=== PATIENT | male | born 1995 | race African-American/Black ===

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

== ENCOUNTER 2017-04-14 11:53 | Inpatient (IN) | payer OTHER ==
[2017-04-14 13:13] LABS: Hematocrit 47 % (42-52); Hemoglobin 15.9 g/dl (14.0-18.0); Mean Corpuscular HGB Conc 34 g/dl (31-36); Mean Corpuscular Hemoglobin 26 pg (27-31); Mean Corpuscular Volume 78 fL (80-94); Mean Platelet Volume 9 um3 (7.4-10.4); Red Blood Count 6.05 10^6/ul (4.0-5.4); Red Cell Distribution Width 14 % (10.5-15); White Blood Count 6.4 10^3/ul (3.5-10.8)
[2017-04-14 13:29] LABS: ALT 14 U/L (7-52); AST 18 U/L (13-39); Albumin 5.3 g/dL (3.2-5.2); Alkaline Phosphatase 68 U/L (34-104); Anion Gap 7 mmol/L (2-11); Blood Urea Nitrogen 7 mg/dL (6-24); CO2 Carbon Dioxide 28 mmol/L (22-32); Calcium 10.4 mg/dL (8.6-10.3); Chloride 103 mmol/L (101-111); EGFR African American 143.5 (>60); EGFR Non-African American 111.6 (>60); Globulin 2.8 g/dL (2-4); Glucose 99 mg/dL (70-100); Sodium 138 mmol/L (133-145); Total Protein 8.1 g/dL (6.4-8.9)
[2017-04-14 13:41] LABS: Acetaminophen < 15 mcg/mL; Alcohol < 10 mg/dL (<10); Salicylate < 2.50 mg/dL (<30)
[2017-04-14 13:54] LABS: Urine Bilirubin Negative (Negative); Urine Glucose Negative (Negative); Urine Nitrite Negative (Negative)
[2017-04-14 13:56] LABS: TSH (Thyroid Stimulating Horm) 0.96 mcIU/mL (0.34-5.60)
[2017-04-14 14:11] LABS: Benzodiazepine Urine Screen None Detected (None Detect)
--- NOTE | 2017-04-14 16:31 | ED ---
Naty Goins Abhishek, scribed for Jessica Peres MD on 04/14/17 at 1352 . Substance Abuse/Use - HPI Summary HPI Summary: This patient is a 21 year old M presenting [place] [facility] accompanied by male with a chief complaint of neurological deficit. The pt states he has memories from childhood that are returning, as well as patient states he sees god and has intuitions. The patient rates the pain 0/10 in severity. Symptoms aggravated by nothing. Symptoms alleviated by nothing. Patient reports depressed state of mind. Patient denies SI/HI. Pt states he has not taken marijuana recently. PMHx includes denies DM, HTN, cardiac disease, thyroid disease and asthma. - History Of Current Complaint Chief Complaint: EDMentalHealth Stated Complaint: MHE Hx Obtained From: Patient, Other: - Male who is a family friend Timing Of Abuse: Intermittent Character: Depressed Aggravating Factor(s): Nothing Alleviating Factor(s): Nothing Associated Signs And Symptoms: Altered Mental Status - The pt states he has memories from childhood that are returning, as well as patient states he sees god and has intuitions. Possibly due to marijuana use. 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 Denies: Hx Diabetes, Hx Thyroid Disease Cardiovascular History: Denies: Hx Hypertension, Hx Pacemaker/ICD Respiratory History: Reports: Hx Asthma Denies: Hx Chronic Obstructive Pulmonary Disease (COPD) GI History: Denies: Hx Ulcer Sensory History: Denies: Hx Contacts or Glasses, Hx Hearing Aid Opthamlomology History: Denies: Hx Contacts or Glasses Neurological History: Reports: Hx Migraine - TAKES MEDS PRN Psychiatric History: Reports: Hx Substance Abuse - Marijuana usage Denies: Hx Panic Disorder - Surgical History Surgery Procedure, Year, and Place: NASAL PASSAGE - 2011 Infectious Disease History: No Infectious Disease History: Denies: Hx Hepatitis, Hx Human Immunodeficiency Virus (HIV), Traveled Outside the [place] in Last 30 Days - Family History Known Family History: Positive: Other - Negative thyroid disease Negative: Cardiac Disease, Hypertension, Diabetes - Social History Occupation: Student Lives: With Family Alcohol Use: None Substance Use Type: Reports: Marijuana Substance Use Comment - Amount & Last Used: Marijuana: not used recently Smoking Status (MU): Never Smoked Tobacco Review of Systems Constitutional: Negative Eyes: Negative ENT: Negative Cardiovascular: Negative Respiratory: Negative Gastrointestinal: Negative Genitourinary: Negative Musculoskeletal: Negative Skin: Negative Neurological: Other - pt states he has used marijauna but not recently. Positive: Depressed, Other - The pt states he has memories from childhood that are returning, as well as patient states he sees god and has intuitions. All Other Systems Reviewed And Are Negative: Yes Physical Exam - Summary Physical Exam Summary: General: Well appearing, no pain distress Skin: Warm, Skin Color Reflects Adequate Perfusion, Dry Eyes: EOMI, HAILEE ENT: Pharynx normal, TMs normal Neck: Supple, nontender Respiratory: CTA, breath sounds present, no rhonchi, no wheezes, no rales Cardiovascular: RRR, no murmur, no rub, no gallop Abdomen: Soft, nontender, Non-distended, no guarding, no rebound Bowel: Present Musculoskeletal: PUSHPA, No edema Neuro: Sensory/motor intact, A&Ox3, CN intact 2-12 Psych: Rhyming on exam, Responding to internal stimuli, Not responding with correct answer tangential Triage Information Reviewed: Yes Vital Signs On Initial Exam: Initial Vitals Temp Pulse Resp BP Pulse Ox 97.8 F 67 16 137/86 100 04/14/17 11:57 04/14/17 11:57 04/14/17 11:57 04/14/17 11:57 04/14/17 11:57 Vital Signs Reviewed: Yes Diagnostics - Vital Signs Vital Signs Temp Pulse Resp BP Pulse Ox 04/14/17 11:57 97.8 F 67 16 137/86 100 - Laboratory Lab Results: Lab Results 04/14/17 04/14/17 Range/Units 13:02 13:02 WBC 6.4 (3.5-10.8) 10^3/ul RBC 6.05 H (4.0-5.4) 10^6/ul Hgb 15.9 (14.0-18.0) g/dl Hct 47 (42-52) % MCV 78 L (80-94) fL MCH 26 L (27-31) pg MCHC 34 (31-36) g/dl RDW 14 (10.5-15) % Plt Count 289 (150-450) 10^3/ul MPV 9 (7.4-10.4) um3 Neut % (Auto) 46.0 (38-83) % Lymph % (Auto) 36.4 (25-47) % [place] % (Auto) 5.7 (1-9) % Eos % (Auto) 10.5 H (0-6) % Baso % (Auto) 1.4 (0-2) % Absolute Neuts (auto) 2.9 (1.5-7.7) 10^3/ul Absolute Lymphs (auto) 2.3 (1.0-4.8) 10^3/ul Absolute Monos (auto) 0.4 (0-0.8) 10^3/ul Absolute Eos (auto) 0.7 H (0-0.6) 10^3/ul Absolute Basos (auto) 0.1 (0-0.2) 10^3/ul Absolute Nucleated RBC 0.02 10^3/ul Nucleated RBC % 0.3 Sodium 138 (133-145) mmol/L Potassium 4.0 (3.5-5.0) mmol/L Chloride 103 (101-111) mmol/L Carbon Dioxide 28 (22-32) mmol/L Anion Gap 7 (2-11) mmol/L BUN 7 (6-24) mg/dL Creatinine 0.88 (0.67-1.17) mg/dL Est GFR ( Amer) 143.5 (>60) Est GFR (Non-Af Amer) 111.6 (>60) BUN/Creatinine Ratio 8.0 (8-20) Glucose 99 (70-100) mg/dL Calcium 10.4 H (8.6-10.3) mg/dL Total Bilirubin 0.60 (0.2-1.0) mg/dL AST 18 (13-39) U/L ALT 14 (7-52) U/L Alkaline Phosphatase 68 (34-104) U/L Total Protein 8.1 (6.4-8.9) g/dL Albumin 5.3 H (3.2-5.2) g/dL Globulin 2.8 (2-4) g/dL Albumin/Globulin Ratio 1.9 (1-3) TSH Pending Salicylates < 2.50 (<30) mg/dL Acetaminophen < 15 mcg/mL Serum Alcohol < 10 (<10) mg/dL Result Diagrams: 04/14/17 13:02 04/14/17 13:02 Lab Statement: Any lab studies that have been ordered have been reviewed, and results considered in the medical decision making process. Course/Dx - Course Course Of Treatment: 21 yo brought in by his adoptive parents with altered mental status. Pt was admitted with likely first psychotic break in stable condition - Diagnoses Provider Diagnoses: Psychosis Discharge - Discharge Plan Condition: Stable Disposition: ADMITTED TO [facility] The documentation as recorded by the Naty gomez Abhishek accurately reflects the service I personally performed and the decisions made by , Jessica Peres MD.
[2017-04-14] MEDS ORDERED: Haloperidol TAB* 5 MG PO PRN (17:18)
[2017-04-14] MEDS ORDERED: Acetaminophen TAB* 325 MG PO PRN (17:18)
[2017-04-14] MEDS ORDERED: LORazepam TAB(*) 1 MG PO PRN (17:18)
[2017-04-14] MEDS ORDERED: Al Hydrox/Mg Hydrox/Simet LIQ* 30 ML UDC PO PRN (17:18)
[2017-04-15] MEDS: Vitamin THERAPEUTIC TAB PO SCH (10:15)
--- NOTE | 2017-04-15 11:59 | HP ---
H&P (Free Text) History and Physical: HPI: ---- Patient is a 21yo male with PPHx significant for PTSD presents to the [facility] ED, BIB his adopted family, reporting patient displaying bizarre behaviors and expressing delusional thought of the past few weeks. In the ED, patient is noted to be agitated, guarded and paranoid. He is noted to be responding to internal stimuli and also displays echolalia while in the ED. Patient denied AH/VH and SI /HI. Patient reports this is his first psychiatric hospitalization. On interview, patient engages the interview, but continues to demonstrate a mostly disorganized TP. He is a poor historian, but has given this provider permission to get collateral information regarding this presentation from his adopted parents. Patient is able to report recently experiencing worsening intrusive memories of both his mother and brother who while patient was a child. He reports he is from [facility], and came [place] the [place] when he was 9yo, brought by his adopted family. Patient reports hx of trauma counseling due to his loses in childhood. He also reports significant bullying in middle school because he could not speak German well. Patient reports significant bullying in HS as well. Patient does reports recent use of mushrooms and LSD at a libertarian a few weeks ago. It is reported he has not returned to his baseline cognition since. Patient also reports daily use of Cannabis. Patient denies hx of suicide attempt. Patient continued to deny AH/VH and SI/HI. Past Psych Hx: Inpt - Patient reports this is his 1st psychiatric hospitalization. Outpt - Patient reports prior hx of outpt MH encounters, recently primarily counseling for PTSD. Psychotropic med hx - Patient is psychotropic med naive. Trauma Hx: Patient noted to have lost both his parents and his bio-sibling in childhood under the age of 7yo. Patient also reports significant bullying in middle school because he could not speak German well. Patient reports significant bullying in HS as well. Suicide attempt Hx / SIB Hx: Patient denies hx of suicide attempt. Substance Hx: Patient denies hx of alcohol abuse. Patient endorses use of marijuana regularly since 9th grade. Patient reports rare use of mushrooms/acid, last, a couple of months ago. Patient reports no use of other illicit substances. Medical Hx: Patient w/ Dx of having Sickle Cell Trait Allergies: --------- Shrimp / Shrimp Flavor NKDA Family Hx: Patient was adopted and has no knowledge of his maternal or paternal medical hx. Social Hx: --------- -Patient born in [facility]. -Patient was adopted at 7yo. -Patient's bio-dad before he was born. -Patient's bio-mom when he was 7yo. -Patient's bio-sibling, a brother also when patient was a child. -At age 9yo, patient moved with his adopted family to the . -Patient reports moving to [place] at 10yo. -Patient graduated HS in 11/2016. -Patient is accepted but has not started IC. -Patient denies access to firearms. Home Medications: Home Medications Medication Instructions Recorded Confirmed Type NK [No Home Medications Reported] 11/19/16 11/19/16 History VITALS: Vital Signs (72 hours) 04/14/17 04/14/17 04/14/17 11:57 17:09 17:21 Temperature 97.8 F 98.6 F Pulse Rate 67 95 Respiratory 16 18 18 Rate Blood Pressure 137/86 132/85 (mmHg) O2 Sat by Pulse 100 100 Oximetry 04/14/17 04/15/17 21:50 08:18 Temperature 98.9 F Pulse Rate 76 Respiratory 18 16 Rate Blood Pressure 94/68 (mmHg) O2 Sat by Pulse 100 Oximetry LABS: ------- Laboratory Tests 04/14/17 04/14/17 04/14/17 13:02 13:02 13:41 WBC 6.4 RBC 6.05 H Hgb 15.9 Hct 47 MCV 78 L MCH 26 L MCHC 34 RDW 14 Plt Count 289 MPV 9 Neut % (Auto) 46.0 Lymph % (Auto) 36.4 [place] % (Auto) 5.7 Eos % (Auto) 10.5 H Baso % (Auto) 1.4 Absolute Neuts (auto) 2.9 Absolute Lymphs (auto) 2.3 Absolute Monos (auto) 0.4 Absolute Eos (auto) 0.7 H Absolute Basos (auto) 0.1 Absolute Nucleated RBC 0.02 Nucleated RBC % 0.3 Sodium 138 Potassium 4.0 Chloride 103 Carbon Dioxide 28 Anion Gap 7 BUN 7 Creatinine 0.88 Est GFR ( Amer) 143.5 Est GFR (Non-Af Amer) 111.6 BUN/Creatinine Ratio 8.0 Glucose 99 Calcium 10.4 H Total Bilirubin 0.60 AST 18 ALT 14 Alkaline Phosphatase 68 Total Protein 8.1 Albumin 5.3 H Globulin 2.8 Albumin/Globulin Ratio 1.9 TSH 0.96 Urine Color Urine Appearance Urine pH Ur Specific [place] Urine Protein Urine Ketones Urine Blood Urine Nitrate Urine Bilirubin Urine Urobilinogen Ur Leukocyte Esterase Urine Glucose Salicylates < 2.50 Urine Opiates Screen None detected Acetaminophen < 15 Ur Barbiturates Screen None detected Ur Phencyclidine Scrn None detected Ur Amphetamines Screen None detected U Benzodiazepines Scrn None detected Urine Cocaine Screen None detected U Cannabinoids Screen Presumptive positive H Serum Alcohol < 10 04/14/17 13:41 WBC RBC Hgb Hct MCV MCH MCHC RDW Plt Count MPV Neut % (Auto) Lymph % (Auto) [place] % (Auto) Eos % (Auto) Baso % (Auto) Absolute Neuts (auto) Absolute Lymphs (auto) Absolute Monos (auto) Absolute Eos (auto) Absolute Basos (auto) Absolute Nucleated RBC Nucleated RBC % Sodium Potassium Chloride Carbon Dioxide Anion Gap BUN Creatinine Est GFR ( Amer) Est GFR (Non-Af Amer) BUN/Creatinine Ratio Glucose Calcium Total Bilirubin AST ALT Alkaline Phosphatase Total Protein Albumin Globulin Albumin/Globulin Ratio TSH Urine Color Straw Urine Appearance Clear Urine pH 8.0 Ur Specific [place] 1.009 L Urine Protein Negative Urine Ketones Negative Urine Blood Negative Urine Nitrate Negative Urine Bilirubin Negative Urine Urobilinogen Negative Ur Leukocyte Esterase Negative Urine Glucose Negative Salicylates Urine Opiates Screen Acetaminophen Ur Barbiturates Screen Ur Phencyclidine Scrn Ur Amphetamines Screen U Benzodiazepines Scrn Urine Cocaine Screen U Cannabinoids Screen Serum Alcohol PHYSICAL EXAM: GEN - in NAD, thin build, looks stated age HEENT - NC/AT, EOEMI, no lesions or discharge noted, conjunctivae clear NECK - supple, no JVD, no LAD, CARDIAC - S1/S2, no discernable murmurs ABD - (+) BS x 4 quad, non-tender EXT - no edema, no lesions MUSCULOSKEL - 5/5 muscle strength in all extremities SKIN - intact, no lesions NEURO - CN 2-12, steady gait MSE: ----- Appearance - thin build male, looks stated age fair hygeine, in NAD Behavior - bizarre but cooperative Speech - spontaneous, RVR, prosody wnl Eye Contact - intense Mood - "depressed" Affect - odd, dysphoric TP - disorganized mostly, linear at times TC - consumed with memories of his mom and brother who both passed in his childhood, religiously preoccupied, grandiose at times Perception - MARK, patient denies AH/VH Orientation - A&Ox2(person and place) Insight - poor Judgment - poor Impulse control - poor SI / HI - denies both ASSESSMENT: 1. 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 PTSD PLAN: ------ 1. Continue admission to [facility] for safety and symptom mx. 2. Will start Abilify 10mg po qhs for mood augmentation and psychosis. 3. First break psychosis work-up ordered: CT brain w/o contrast, VitB12, RPR, HIV, and ESR in addition to the admission labs drawn. 4. Obtain collateral from adopted mom(Yue-#[phone]) and adopted dad([phone]) and outpt providers. 5. Patient to participate in milieu activities and groups.
[2017-04-15 15:53] LABS: HDL Cholesterol 48.6 mg/dL
[2017-04-15] MEDS: Nicotine Inhaler* 10 MG AMP INH PRN ×2 (17:24→21:09)
[2017-04-15] MEDS ORDERED: Mouth Piece, Nicotine* 1 EACH CARTRIDGE INH ONE (18:00)
[2017-04-15] MEDS: ARIPiprazole TAB* 5 MG PO SCH (21:06)
--- NOTE | 2017-04-16 10:16 | PN ---
Subjective - Subjective Service Type: [id number] [facility] care 15 min low complexity Subjective: Patient is noted to be visible in the milieu, pleasant, and social. It is noted that patient is intrusive with staff and peers and has demonstrated poor boundaries. Patient observed to be sitting inappropriately close to a female peer and observed invading physical space of peers. On interview, patient has no insight into the inappropriateness of these behaviors. He continues to display an odd, distance affect and eye contact. Patient is mostly linear in TP, but continues to demonstrate disorganized TP at times. TC is bizarre and at times grandiose. Patient has been disruptive in the few groups he's attended. Patient reports no desire to take pills, but was encouraged to be compliant with a trial of an antipsychotic med to determine if they would be beneficial or not. Patient was amenable. Patient reports improved mood. He clarified that he has more biological siblings back in [facility]. He reports having 2 older brothers who are twins and a sister. He reports the brother that passed lived in [facility] and he passed last year, not in patient's childhood as his mom and dad did. Patient reports his brother who passed was adopted by another family that stayed in [facility]. He reports his adopted family moved to the [place] when he was 9yo. He reports no SI/HI or AH//VH. Sleep and appetite are wnl. Objective - Appearance Appearance: Well Developed/Nourished, Thin Framed Dysmorphic Features: No Hygiene: Normal Grooming: Fairly Well Kept - Behavior Psychomotor Activities: Normal Exhibits Abnormal Movement: No - Attitude and Relatedness Attitude and Relatedness: Psychotically Related Eye Contact: Fair - Speech Quality: Unpressured Latencies: Normal Quantity: Copious - Mood Patient's Decription of Mood: "Okay" - Affect Observed Affect: Expansive Affect Consistent with: Euthymia - Thought Process Patient's Thought Process: Coherent Thought Content: Yes Paranoid Ideation, No Passive Wish, No Suicidal Planning, No Homicidal Ideation - Sensorium Experiencing Hallucinations: No, Sensorium is Clear Type of Hallucinations: Visual: No, Auditory: No, Command: No - Level of Consciousness Level of Consciousness: Alert Orientation: Yes Orientated to Place, Yes Orientated to Person, No Intact, No Orientated to Time - Impulse Control Impulse Control: Poor - Insight and Judgement Insight and Judgement: Poor - Group Participation Particating in Group Activities: No - Medication Management Medication Management Adherence: Yes Assessment - Assessment Merits Inpatient Hospitalization: For Immediate Safety, For Stabilization Inpatient DSM-IV Dx: 1. 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 2. PTSD Plan - Plan Treatment Plan: Name: IDA RODRIGUEZ Birthdate: 1995 [id number] PLAN: ------ 1. Continue admission to [facility] for safety and symptom mx. 2. Continue Abilify 10mg po qhs for mood augmentation and psychosis. 3. First break psychosis work-up: CT brain w/o contrast, VitB12, RPR, HIV, and ESR in addition to the admission labs drawn - PENDING 4. Obtain collateral from adopted mom(Yue-#[phone]) and adopted [phone]) and outpt providers. 5. Patient to participate in milieu activities and groups. Continued Medication Management: Start Medication Medications: Current Medications Acetaminophen (Tylenol Tab*) 650 mg PO Q4H PRN PRN Reason: PAIN or TEMP > 101 F Al Hydrox/Mg Hydrox/Simethicone (Maalox Plus*) 30 ml PO Q4H PRN PRN Reason: INDIGESTION Aripiprazole (Abilify Tab*) 10 mg PO BEDTIME CEM Last Admin: 04/15/17 21:06 Dose: 10 mg Haloperidol (Haldol Tab*) 5 mg PO Q6H PRN PRN Reason: AGITATION Last Admin: 04/14/17 21:50 Dose: 5 mg Lorazepam (Ativan Tab(*)) 2 mg PO Q6H PRN PRN Reason: AGITATION Last Admin: 04/14/17 21:50 Dose: 2 mg Multivitamins (Theragran Tab*) 1 tab PO DAILY CEM Last Admin: 04/15/17 10:15 Dose: Not Given Nicotine (Nicotine Inhaler*) 10 mg INH Q2H PRN PRN Reason: CRAVING Last Admin: 04/15/17 21:09 Dose: 10 mg - Discharge Plan Discharge Plan: Outpatient Follow Up Outpatient Program: [facility]
[2017-04-16] MEDS: Vitamin THERAPEUTIC TAB PO SCH (11:51)
--- NOTE | 2017-04-16 13:12 | RAD ---
HISTORY: Psychosis COMPARISONS: MRI dated July 05, 2010 TECHNIQUE: Multiple contiguous axial CT scans were obtained of the head without intravenous contrast. FINDINGS: HEMORRHAGE/INFARCT: There is no hemorrhage or acute infarct. MASSES/SHIFT: There is no mass or shift. EXTRA-AXIAL SPACES: There are no extra-axial fluid collections. SULCI AND VENTRICLES: The sulci and ventricles are normal in size and position for the patient's stated age. CEREBRUM: There are no focal parenchymal abnormalities. BRAINSTEM: There are no focal parenchymal abnormalities. CEREBELLUM: There are no focal parenchymal abnormalities. VESSELS: The vessels are grossly normal. PARANASAL SINUSES: The paranasal sinuses are clear. ORBITS: The orbits are unremarkable. BONES AND SOFT TISSUE: No bone or soft tissue abnormalities are noted. OTHER: None IMPRESSION: NO ACUTE INTRACRANIAL PATHOLOGY.
[2017-04-16] MEDS: ARIPiprazole TAB* 5 MG PO SCH ×2 (21:24→21:29)
[2017-04-17 06:24] LABS: Vitamin B12 531 pg/mL (180-914)
[2017-04-17 10:30] LABS: Syphilis Index < 0.1 Index
[2017-04-17] MEDS: Vitamin THERAPEUTIC TAB PO SCH (10:42)
--- NOTE | 2017-04-17 11:31 | PN ---
Subjective - Subjective Service Type: [id number] Hosp care 15 min low complexity Subjective: Patient is noted to be visible in the milieu, pleasant, and social. Patient continues to demonstrate intrusive behaviors and inability to maintain appropriate boundaries, again observed invading physical space of peers. On interview, patient's affect is more full and engaged. His eye contact is not bizarre but is appropriate today. Patient is mostly linear in TP, but continues to demonstrate disorganized TP at times. TC is focused on discharge, but was amenable to continue admission for ongoing med adjustment and as it was explained to patient, engagement in groups will strengthen his ability to handle his endorsed recent mood deregulation. Patient has been attending groups today. He is med compliant and denies med s/e' s. He reports his adopted family is available to have a family meeting on Saturday. He reports fair sleep and appetite are wnl. Patient again denies SI/HI or AH//VH. Objective - Appearance Appearance: Well Developed/Nourished, Thin Framed Dysmorphic Features: No Hygiene: Normal Grooming: Fairly Well Kept - Behavior Psychomotor Activities: Normal Exhibits Abnormal Movement: No - Attitude and Relatedness Attitude and Relatedness: Cooperative Eye Contact: Good - Speech Quality: Unpressured Latencies: Normal Quantity: Copious - Mood Patient's Decription of Mood: "Fine" - Affect Observed Affect: Expansive Affect Consistent with: Euthymia - Thought Process Patient's Thought Process: Disorganized, Tangential Thought Content: Yes Paranoid Ideation, No Passive Wish, No Suicidal Planning, No Homicidal Ideation - Sensorium Experiencing Hallucinations: No, Sensorium is Clear Type of Hallucinations: Visual: No, Auditory: No, Command: No - Level of Consciousness Level of Consciousness: Alert Orientation: Yes Orientated to Place, Yes Orientated to Person, No Intact, No Orientated to Time - Impulse Control Impulse Control: Impaired - Insight and Judgement Insight and Judgement: Impaired - Group Participation Particating in Group Activities: No - Medication Management Medication Management Adherence: Yes Assessment - Assessment Merits Inpatient Hospitalization: For Immediate Safety, For Stabilization Inpatient DSM-IV Dx: 1. 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 2. PTSD Plan - Plan Treatment Plan: Name: IDA RODRIGUEZ Birthdate: 1995 [id number] PLAN: ------ 1. Continue admission [place] [facility] for safety and symptom mx. 2. Continue Abilify 10mg po qhs for mood augmentation and psychosis. 3. First break psychosis work-up: CT brain w/o contrast, VitB12, RPR and ESR in addition to the admission labs drawn - All are WNL HIV is still PENDING. 4. Obtain collateral from adopted mom(Yue-#[phone]) and adopted dad() and outpt providers. 5. Patient to participate in milieu activities and groups. Continued Medication Management: Start Medication Medications: Current Medications Acetaminophen (Tylenol Tab*) 650 mg PO Q4H PRN PRN Reason: PAIN or TEMP > 101 F Al Hydrox/Mg Hydrox/Simethicone (Maalox Plus*) 30 ml PO Q4H PRN PRN Reason: INDIGESTION Aripiprazole (Abilify Tab*) 10 mg PO BEDTIME CEM Last Admin: 04/16/17 21:29 Dose: 10 mg Haloperidol (Haldol Tab*) 5 mg PO Q6H PRN PRN Reason: AGITATION Last Admin: 04/14/17 21:50 Dose: 5 mg Lorazepam (Ativan Tab(*)) 2 mg PO Q6H PRN PRN Reason: AGITATION Last Admin: 04/14/17 21:50 Dose: 2 mg Multivitamins (Theragran Tab*) 1 tab PO DAILY CEM Last Admin: 04/17/17 10:42 Dose: Not Given Nicotine (Nicotine Inhaler*) 10 mg INH Q2H PRN PRN Reason: CRAVING Last Admin: 04/15/17 21:09 Dose: 10 mg - Discharge Plan Discharge Plan: Outpatient Follow Up Outpatient Program: [facility]
[2017-04-17] MEDS: ARIPiprazole TAB* 5 MG PO SCH (20:37)
[2017-04-18] MEDS: Vitamin THERAPEUTIC TAB PO SCH (08:12)
--- NOTE | 2017-04-18 09:56 | PN ---
Subjective - Subjective Service Type: [id number] Hosp care 15 min low complexity Subjective: Patient is visible in the milieu; noted to be social, pleasant, and participating in milieu activities and groups. Patient is noted to have good eye contact and is engaged more engaged in the conversation. Patient reports med compliance. He denies med s/e's. Patient continues to report noticeable improved clarity of thought. He demonstrated no disorganized thought on interview. Patient again today denies SI/HI and AH/VH. Objective - Appearance Appearance: Well Developed/Nourished, Thin Framed Dysmorphic Features: No Hygiene: Normal Grooming: Well Kept - Behavior Psychomotor Activities: Normal Exhibits Abnormal Movement: No - Attitude and Relatedness Attitude and Relatedness: Cooperative Eye Contact: Good - Speech Quality: Unpressured Latencies: Normal Quantity: Appropriate - Mood Patient's Decription of Mood: "Anxious" - Affect Observed Affect: Constricted Affect Consistent with: Dysphoria - Thought Process Patient's Thought Process: Coherent Thought Content: No Passive Wish, No Suicidal Planning, No Homicidal Ideation, No Paranoid Ideation - Sensorium Experiencing Hallucinations: No, Sensorium is Clear Type of Hallucinations: Visual: No, Auditory: No, Command: No - Level of Consciousness Level of Consciousness: Alert Orientation: Yes Intact, Yes Orientated to Time, Yes Orientated to Place, Yes Orientated to Person - Impulse Control Impulse Control: Intact - Insight and Judgement Insight and Judgement: Fair - Group Participation Particating in Group Activities: Yes - Medication Management Medication Management Adherence: Yes Assessment - Assessment Merits Inpatient Hospitalization: For Immediate Safety, For Stabilization Inpatient DSM-IV Dx: 1. 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 2. PTSD Plan - Plan Treatment Plan: Name: IDA RODRIGUEZ Birthdate: 1995 [id number] PLAN: ------ 1. Continue admission [place] [facility] for safety and symptom mx. 2. Continue Abilify 10mg po qhs for mood augmentation and psychosis. 3. First break psychosis work-up: CT brain w/o contrast, VitB12, RPR and ESR in addition to the admission labs drawn - All are WNL HIV is still PENDING. 4. Family meeting today with adopted parents. Will obtain collateral from adopted mom(Yue-#[phone]) and adopted dad([phone]). 5. Patient to participate in milieu activities and groups. Continued Medication Management: Different Medication Medications: Current Medications Acetaminophen (Tylenol Tab*) 650 mg PO Q4H PRN PRN Reason: PAIN or TEMP > 101 F Al Hydrox/Mg Hydrox/Simethicone (Maalox Plus*) 30 ml PO Q4H PRN PRN Reason: INDIGESTION Aripiprazole (Abilify Tab*) 10 mg PO BEDTIME CEM Last Admin: 04/17/17 20:37 Dose: 10 mg Haloperidol (Haldol Tab*) 5 mg PO Q6H PRN PRN Reason: AGITATION Last Admin: 04/14/17 21:50 Dose: 5 mg Lorazepam (Ativan Tab(*)) 2 mg PO Q6H PRN PRN Reason: AGITATION Last Admin: 04/14/17 21:50 Dose: 2 mg Multivitamins (Theragran Tab*) 1 tab PO DAILY CEM Last Admin: 04/18/17 08:12 Dose: Not Given Nicotine (Nicotine Inhaler*) 10 mg INH Q2H PRN PRN Reason: CRAVING Last Admin: 04/15/17 21:09 Dose: 10 mg - Discharge Plan Discharge Plan: Outpatient Follow Up
[2017-04-18] MEDS: ARIPiprazole TAB* 5 MG PO SCH (20:27)
[2017-04-19] MEDS: Vitamin THERAPEUTIC TAB PO SCH (08:44)
--- NOTE | 2017-04-19 12:03 | PN ---
Subjective - Subjective Service Type: [id number] Hosp care 15 min low complexity Subjective: Patient seen with adopted mother, father, and unit SW. Patient is linear and GD in TP and expressing poor insight into his illness. He expresses ongoing denial of his MH illness and continues to consider smoking marijuana. Patient to follow-up with Dr. Mehrdad miller. Patient has not displayed disorganized TP in >24hrs. Patient noted to have appropriate behaviors and has been attending groups. Patient is med compliant and denies med s/e's. Patient has had good sleep and reports a fair appetite. Patient reports improved mood and parents both report patient is very close to baseline, noting his sedation. Patient denies SI/HI and AH/VH. Objective - Appearance Appearance: Well Developed/Nourished, Thin Framed Dysmorphic Features: No Hygiene: Normal Grooming: Fairly Well Kept - Behavior Psychomotor Activities: Normal Exhibits Abnormal Movement: No - Attitude and Relatedness Attitude and Relatedness: Cooperative Eye Contact: Fair - Speech Quality: Unpressured Latencies: Normal Quantity: Appropriate - Mood Patient's Decription of Mood: "Irritable" - Affect Observed Affect: Constricted Affect Consistent with: Dysphoria - Thought Process Patient's Thought Process: Coherent Thought Content: No Passive Wish, No Suicidal Planning, No Homicidal Ideation, No Paranoid Ideation - Sensorium Experiencing Hallucinations: No, Sensorium is Clear Type of Hallucinations: Visual: No, Auditory: No, Command: No - Level of Consciousness Level of Consciousness: Alert Orientation: Yes Intact, Yes Orientated to Time, Yes Orientated to Place, Yes Orientated to Person - Impulse Control Impulse Control: Intact - Insight and Judgement Insight and Judgement: Fair - Group Participation Particating in Group Activities: Yes - Medication Management Medication Management Adherence: Yes Assessment - Assessment Merits Inpatient Hospitalization: For Immediate Safety, For Stabilization Inpatient DSM-IV Dx: 1. 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 2. PTSD Plan - Plan Treatment Plan: Name: IDA RODRIGUEZ Birthdate: 1995 [id number] PLAN: ------ 1. Continue admission [place] [facility] for safety and symptom mx. 2. Continue Abilify 10mg po qhs for mood augmentation and psychosis. 3. First break psychosis work-up: CT brain w/o contrast, VitB12, RPR and ESR in addition to the admission labs drawn - All are WNL HIV isNEG. 4. Family meeting completed today with adopted parents, including patient, this provider, unit older adult social work specialist anf adopted mom(Yue-#[phone]) and adopted dad([phone]). 5. Tentative discharge Saturday or Saturday04/23/17, patient to f/u in oupt with Dr. Cronin. 5. Patient to participate in milieu activities and groups. Continued Medication Management: Start Medication Medications: Current Medications Acetaminophen (Tylenol Tab*) 650 mg PO Q4H PRN PRN Reason: PAIN or TEMP > 101 F Al Hydrox/Mg Hydrox/Simethicone (Maalox Plus*) 30 ml PO Q4H PRN PRN Reason: INDIGESTION Aripiprazole (Abilify Tab*) 10 mg PO BEDTIME CEM Last Admin: 04/18/17 20:27 Dose: 10 mg Haloperidol (Haldol Tab*) 5 mg PO Q6H PRN PRN Reason: AGITATION Last Admin: 04/14/17 21:50 Dose: 5 mg Lorazepam (Ativan Tab(*)) 2 mg PO Q6H PRN PRN Reason: AGITATION Last Admin: 04/14/17 21:50 Dose: 2 mg Multivitamins (Theragran Tab*) 1 tab PO DAILY CEM Last Admin: 04/19/17 08:44 Dose: Not Given Nicotine (Nicotine Inhaler*) 10 mg INH Q2H PRN PRN Reason: CRAVING Last Admin: 04/15/17 21:09 Dose: 10 mg - Discharge Plan Discharge Plan: Outpatient Follow Up
[2017-04-19] MEDS: ARIPiprazole TAB* 5 MG PO SCH (20:26)
[2017-04-20] MEDS: Vitamin THERAPEUTIC TAB PO SCH (09:14)
--- NOTE | 2017-04-20 18:19 | PN ---
Subjective - Subjective Service Type: 29514 Hosp care 15 min low complexity Subjective: Ida was seen in his room, sitting on the floor. Not in distress and reports that his thoughts are clear and not experiencing any hallucinations. Denies SI/ HI. Says he doesn't have drug problems. Smokes pot with friends and doesn't think that's a problem. Minimizing other drug use. However, Abilify helped and not experiencing side effects. Objective - Appearance Appearance: Healthy Appearing Dysmorphic Features: No Hygiene: Normal Grooming: Fairly Well Kept - Behavior Psychomotor Activities: Normal Exhibits Abnormal Movement: No - Attitude and Relatedness Attitude and Relatedness: Cooperative Eye Contact: Fair - Speech Quality: Unpressured Latencies: Normal Quantity: Appropriate - Mood Patient's Decription of Mood: "Okay" - Affect Observed Affect: Non-labile Affect Consistent with: Dysphoria - Thought Process Patient's Thought Process: Coherent, Goal Directed Thought Content: No Passive Wish, No Suicidal Planning, No Homicidal Ideation, No Paranoid Ideation - Sensorium Experiencing Hallucinations: No, Sensorium is Clear Type of Hallucinations: Visual: No, Auditory: No, Command: No - Level of Consciousness Level of Consciousness: Alert Orientation: Yes Intact, Yes Orientated to Time, Yes Orientated to Place, Yes Orientated to Person - Impulse Control Impulse Control: Intact - Insight and Judgement Insight and Judgement: Poor - Group Participation Particating in Group Activities: Yes - Medication Management Medication Management Adherence: Yes Assessment - Assessment Merits Inpatient Hospitalization: Consolidate Improvements, For Discharge Planning Inpatient DSM-IV Dx: 1. 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 2. PTSD Clinical Impression: Psychosis resolved either due to abstinence from drugs in controlled envioronment or Abilify. Plan - Plan Treatment Plan: Name: IDA RODRIGUEZ Birthdate: 1995 [id number] Continued Medication Management: Continue Outpt Medication Medications: Current Medications Acetaminophen (Tylenol Tab*) 650 mg PO Q4H PRN PRN Reason: PAIN or TEMP > 101 F Al Hydrox/Mg Hydrox/Simethicone (Maalox Plus*) 30 ml PO Q4H PRN PRN Reason: INDIGESTION Aripiprazole (Abilify Tab*) 10 mg PO BEDTIME CEM Last Admin: 10/27/17 20:26 Dose: 10 mg Haloperidol (Haldol Tab*) 5 mg PO Q6H PRN PRN Reason: AGITATION Last Admin: 04/14/17 21:50 Dose: 5 mg Lorazepam (Ativan Tab(*)) 2 mg PO Q6H PRN PRN Reason: AGITATION Last Admin: 04/14/17 21:50 Dose: 2 mg Multivitamins (Theragran Tab*) 1 tab PO DAILY CEM Last Admin: 04/20/17 09:14 Dose: Not Given Nicotine (Nicotine Inhaler*) 10 mg INH Q2H PRN PRN Reason: CRAVING Last Admin: 04/15/17 21:09 Dose: 10 mg - Discharge Plan Discharge Plan: Outpatient Follow Up Outpatient Program: [facility]
[2017-04-20] MEDS: ARIPiprazole TAB* 5 MG PO SCH (20:40)
[2017-04-21] MEDS: Vitamin THERAPEUTIC TAB PO SCH (09:58)
[2017-04-21] MEDS: ARIPiprazole TAB* 5 MG PO SCH (20:15)
[2017-04-22 09:17] VITALS: BP 119/78
[2017-04-22] MEDS: Vitamin THERAPEUTIC TAB PO SCH (10:43)
--- NOTE | 2017-04-22 11:29 | PN ---
MHU: Group Therapy Note - Service Type Service Type: [id number] Group Psychotherapy - Cognitive Behavioral Group Therapy ( CBT):Patient was attentive and participatory in CBT programming this morning, and remained in good behavioral control. Patient expressed positive insights regarding relevant treatment interventions and goals.
--- NOTE | 2017-04-22 12:19 | DS ---
Subjective - Subjective Discharge Date: 04/22/17 Treatment Course & Assessment Inpatient DSM-IV Dx: 1. 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 2. PTSD Discharge Planning - Discharge Planning Medications: Current Medications Acetaminophen (Tylenol Tab*) 650 mg PO Q4H PRN PRN Reason: PAIN or TEMP > 101 F Al Hydrox/Mg Hydrox/Simethicone (Maalox Plus*) 30 ml PO Q4H PRN PRN Reason: INDIGESTION Aripiprazole (Abilify Tab*) 10 mg PO BEDTIME COUNTS INCLUDE 234 BEDS AT THE [facility] Last Admin: 04/21/17 20:15 Dose: 10 mg Haloperidol (Haldol Tab*) 5 mg PO Q6H PRN PRN Reason: AGITATION Last Admin: 04/14/17 21:50 Dose: 5 mg Multivitamins (Theragran Tab*) 1 tab PO DAILY COUNTS INCLUDE 234 BEDS AT THE [facility] Last Admin: 04/22/17 10:43 Dose: 1 tab Nicotine (Nicotine Inhaler*) 10 mg INH Q2H PRN PRN Reason: CRAVING Last Admin: 04/15/17 21:09 Dose: 10 mg Discharge Planning: Prescriptions provided for discharge [] Yes [] No Follow up care details as per social work arrangements. Patient response to discharge plan: [] eager for discharge [] agreeable with discharge plan [] ambivalent about discharge [] disagrees with discharge today
== END 2017-04-22 13:53 | disposition home or self-care (01) | DRG 885 ==
LOC: ED 11:53 → BSU 16:57
PROVIDERS: ADMIT Psychiatry & Neurology Psychiatry; ATTEND Psychiatry & Neurology Psychiatry
DX: F29 Unspecified psychosis not due to a substance or known physiological condition (principal); D57.3 Sickle-cell trait; F43.10 Post-traumatic stress disorder, unspecified; Z91.013 Allergy to seafood
CPT/HCPCS: 36415; 70450; 80053; 80061; 80307; 80320; 80329; 81003; 82607; 83036; 84443; 85025; 85652; 86592; 86703; 90853; 99222; 99231; 99238; A9270-GY; G0480

== ENCOUNTER 2018-05-10 18:17 | Inpatient (IN) | payer OTHER ==
--- NOTE | 2018-05-10 18:48 | ED ---
Substance Abuse/Use - HPI Summary HPI Summary: The pt is a 22 y/o male accompanied by the father [place] [facility] c/o increased marijuana and EtOH use since 2 days ago. He got referred to the ED for a mental health evaluation by his psychotherapist-Mr Tigre Soto. Dr. Mehrdad MD saw the [place] [facility] [place] 1 year ago for substance induced psychosis. Home Medications Medication Instructions Recorded Confirmed Type ARIPiprazole [Aripiprazole] 10 mg PO BEDTIME #30 tab 04/22/17 Rx ARIPiprazole [Aripiprazole] 10 mg PO BEDTIME 30 Days #30 tab 05/28/17 Rx - History Of Current Complaint Chief Complaint: EDSubstanceAbuse Stated Complaint: MHE Time Seen by Provider: 05/10/18 18:38 Hx Obtained From: Patient, Family/Top Former - Father Onset/Duration of Drug/ETOH Abuse: Increased Since: - 2 days ago Ingestion History: Type/Name Of Drug - EtOH, Marijuana - Allergies/Home Medications Allergies/Adverse Reactions: Allergies Allergy/AdvReac Type Severity Reaction Status Date / Time SHRIMP/SHRIMP FLAVOR Allergy FACE, AND Uncoded 05/10/18 19:58 LIPS SWELL PMH/Surg Hx/FS Hx/Imm Hx Previously Healthy: No Endocrine/Hematology History: Reports: Hx Sickle Cell Disease - Sickle cell trait Denies: Hx Diabetes, Hx Thyroid Disease Cardiovascular History: Denies: Hx Hypertension, Hx Pacemaker/ICD Respiratory History: Reports: Hx Asthma Denies: Hx Chronic Obstructive Pulmonary Disease (COPD) GI History: Denies: Hx Ulcer Sensory History: Denies: Hx Contacts or Glasses, Hx Hearing Aid Opthamlomology History: Denies: Hx Contacts or Glasses Neurological History: Reports: Hx Migraine - TAKES MEDS PRN Psychiatric History: Reports: Hx Substance Abuse - Marijuana usage, Other Psychiatric Issues/Disorders - Substance-induced psychosis Denies: Hx Eating Disorder, Hx Panic Disorder, Hx of Violent Episodes Against Others - Cancer History Cancer Type, Location and Year: None reported - Surgical History Surgery Procedure, Year, and Place: Nasal passage- 2011 Infectious Disease History: No Infectious Disease History: Denies: Hx Hepatitis, Hx Human Immunodeficiency Virus (HIV), Traveled Outside the [place] in Last 30 Days - Family History Known Family History: Positive: Unknown - Patient adopted from [facility] - Social History Occupation: Student Lives: With Family Alcohol Use: Recent increased intake Substance Use Type: Reports: Marijuana, Synthetic Drugs Substance Use Comment - Amount & Last Used: Marijuana Smoking Status (MU): Unknown if Ever Smoked Review of Systems Constitutional: Other - Positive: Increased EtOH and marijuana use Negative: Fever All Other Systems Reviewed And Are Negative: Yes Physical Exam - Summary Physical Exam Summary: Appearance: The patient is well-nourished in no acute respiratory distress and in no acute pain. Skin: The skin is warm and dry and skin color reflects adequate perfusion. HEENT: The head is normocephalic and atraumatic. The pupils are equal and reactive. The conjunctivae are clear and without drainage. Nares are patent and without drainage. Mouth reveals moist mucous membranes and the throat is without erythema and exudate. The external ars are intact. The ear canals are patent and without drainage. The tympanic membranes are intact. Neck: The neck is supple with full range of motion and non-tender. There are no carotid bruits. There is no neck vein distension. Respiratory: Chest is non-tender. Lungs are clear to auscultation and breath sounds are symmetrical and equal. Cardiovascular: Heart is regular rate and rhythm. There is no murmur or rub auscultated. There is no peripheral edema and pulses are symmetrical and equal. Abdomen: The abdomen is soft and non-tender. There are normal bowel sounds heard in all four quadrants and there is no organomegaly palpated. Musculoskeletal: There is no back tenderness noted. Extremities are non-tender with full range of motion. There is good capillary refill. There is no peripheral edema or calf tenderness elicited. Neurological: Patient is alert and oriented to person, place and time. The patient has symmetrical motor strength in all four extremities. Cranial nerves are grossly intact. Deep tendon reflexes are symmetrical and equal in all four extremities. Psychiatric: The patient has an appropriate affect and does not exhibit any anxiety or depression. Triage Information Reviewed: Yes Vital Signs On Initial Exam: Initial Vitals Temp Pulse Resp BP Pulse Ox 97.8 F 65 18 107/77 100 05/10/18 18:25 18 18:25 18 18:25 05/10/18 18:25 05/10/18 18:25 Vital Signs Reviewed: Yes Diagnostics - Vital Signs Vital Signs Temp Pulse Resp BP Pulse Ox 05/10/18 18:25 97.8 F 65 18 107/77 100 - Laboratory Result Diagrams: 05/10/18 19:30 05/10/18 19:30 Lab Statement: Any lab studies that have been ordered have been reviewed, and results considered in the medical decision making process. Course/Dx - Course Course Of Treatment: 21:13- Pt medically cleared for a MHE - Diagnoses Provider Diagnoses: Substance-induced psychotic disorder with delusions Discharge - Sign-Out/Discharge Documenting (check all that apply): Sign-Out Patient Signing out patient TO: Darrell Colón - Discharge Plan Condition: Stable Referrals: Gabriel Jaramillo MD [Primary Care Provider] - - Billing Disposition and Condition Condition: STABLE - Attestation Statements Document Initiated by Scribe: Yes Documenting Scribe: Violet Ware Provider For Whom Mckay is Documenting (Include Credential): Dr. Darrell Ross MD Scribe Attestation: Violet Goins , scribed for Dr. Darrell Ross MD on 05/10/18 at 2134. Scribe Documentation Reviewed: Yes Provider Attestation: The documentation as recorded by the annibViolet nguyễn accurately reflects the service I personally performed and the decisions made by me, Dr. Darrlel Ross MD
[2018-05-10 19:21] LABS: Urine Appearance Clear; Urine Blood Negative (Negative); Urine Color Yellow; Urine Ketones Negative (Negative); Urine Protein Negative (Negative); Urine Specific Gravity 1.025 (1.010-1.030); Urine Urobilinogen Negative (Negative)
[2018-05-10 19:34] LABS: Hematocrit 47 % (42-52); Hemoglobin 15.9 g/dl (14.0-18.0); Mean Corpuscular HGB Conc 34 g/dl (31-36); Mean Corpuscular Hemoglobin 26 pg (27-31); Mean Corpuscular Volume 78 fL (80-94); Mean Platelet Volume 7.9 fL (7.4-10.4); Platelet Count 550 10^3/ul (150-450); Red Blood Count 6.05 10^6/ul (4.00-5.40); Red Cell Distribution Width 15 % (10.5-15); White Blood Count 9.4 10^3/ul (3.5-10.8)
[2018-05-10 19:51] LABS: EGFR Non-African American 95.3 (>60)
[2018-05-10 19:53] LABS: ABS Basophils 0 10^3/ul (0-0.2); ABS Eosinophils 0.4 10^3/ul (0-0.6); ABS Lymphocytes 3.8 10^3/ul (1.0-4.8); ABS Monocytes 0.7 10^3/ul (0-0.8); ABS Neutrophils 4.4 10^3/ul (1.5-7.7); ABS Nucleated RBC 0 10^3/ul; Eosinophil % 4.7 % (0-6); Lymphocyte % 40.8 % (25-47); Nucleated Red Blood Cells % 0.4
--- NOTE | 2018-05-11 02:33 | ED ---
Progress - Progress Note Progress Note: Patient was signed out from Dr. Ross upon shift change pending MHE and disposition. - Consult/PCP Time Called: 21:00 Course/Dx - Course Course Of Treatment: Patient signed out from Dr. Ross upon shift change pending MHE and disposition. 21:13- Pt medically cleared for a MHE. Per MHE patient will be admitted. - Diagnoses Provider Diagnoses: Substance-induced psychotic disorder with delusions Discharge - Sign-Out/Discharge Documenting (check all that apply): Patient Departure - Admit to [facility], Receiving Sign-Out Signing out patient TO: Darrell Colón Receiving patient FROM: Darrell Ross - Upon shift change - Discharge Plan Condition: Stable Disposition: PSYCHIATRIC FACILITY-[facility] - Billing Disposition and Condition Condition: STABLE Disposition: Psychiatric Facility [facility] - Attestation Statements Document Initiated by Scribe: Yes Documenting Scribe: Anabella Molina Provider For Whom Scribe is Documenting (Include Credential): Dr. Darrell Colón Scribe Attestation: IAnabella scribed for Dr. Darrell Colón on 05/11/18 at 0252. Scribe Documentation Reviewed: Yes Provider Attestation: The documentation as recorded by the Anabella gomez accurately reflects the service I personally performed and the decisions made by me, Dr. Darrell Colón
[2018-05-11] MEDS ORDERED: Acetaminophen TAB* 325 MG PO PRN (07:23)
[2018-05-11] MEDS ORDERED: Al Hydrox/Mg Hydrox/Simet LIQ* 30 ML UDC PO PRN (07:23)
[2018-05-11] MEDS ORDERED: LORazepam TAB(*) 1 MG PO ONE ×2 (08:15→10:30)
[2018-05-11] MEDS ORDERED: LORazepam TAB(*) 1 MG ONE (08:26)
[2018-05-11] MEDS ORDERED: diPHENhydraMINE PO* 50 MG PO ONE (10:30)
[2018-05-11] MEDS ORDERED: Haloperidol TAB* 5 MG PO ONE (10:30)
[2018-05-11] MEDS ORDERED: LORazepam INJ* 2 MG/ML 1 ML VIAL IM ONE (10:30)
[2018-05-11] MEDS ORDERED: Haloperidol INJ IV/IM* 5 MG/ML AMP IM ONE (10:30)
[2018-05-11] MEDS ORDERED: Haloperidol INJ IV/IM* 5 MG/ML AMP ONE (10:31)
[2018-05-11] MEDS ORDERED: LORazepam INJ* 2 MG/ML 1 ML VIAL ONE (10:32)
[2018-05-11] MEDS ORDERED: diPHENhydraMINE PO* 50 MG ONE (10:33)
[2018-05-11] MEDS ORDERED: Haloperidol TAB* 5 MG ONE (10:33)
[2018-05-11] MEDS: Vitamin THERAPEUTIC TAB PO SCH (11:03)
--- NOTE | 2018-05-11 11:46 | PN ---
Subjective Date of Service: 05/11/18 Interval History: Pt seen and examined. Meds and labs reviewed. Per RN, pt was very disorganized this AM and Dr. Garduno was called who ordered 2 mg of PO Ativan. However, pt refused and continued to have difficulty being re-directed. 2mg of IM Ativan and 5 mg of IM Haldol given. Pt had to be physically held down to give meds, but became calm thereafter. CC: Agitation ROS: Could not be reliably obtained given recent sedation PHYSICAL EXAM: GEN APPEARANCE: Asleep, arousable, not in acute distress HEENT: NC/AT, PERRLA, moist oral mucosa, (-) throat erythema NECK: Soft, supple, (-) cervical LAD, (-)JVD HEART: S1S2 WNL, RRR, No MRG CHEST: CTA, BL, GAE, No W/R/R ABD: Soft, ND/NT, NABS 4x Q EXT: No C/C/E SKIN: Warm to touch PSYCH: No active psychosis, hallucinations, depression, SI/HI Objective Active Medications: Acetaminophen (Tylenol Tab*) 650 mg PO Q4H PRN PRN Reason: PAIN or TEMP > 101 F Al Hydrox/Mg Hydrox/Simethicone (Maalox Plus*) 30 ml PO Q4H PRN PRN Reason: INDIGESTION Multivitamins (Theragran Tab*) 1 tab PO DAILY [facility] Last Admin: 05/11/18 11:03 Dose: Not Given Vital Signs - 8 hr 05/11/18 05/11/18 07:15 10:39 Temperature 98.3 F Pulse Rate 90 Respiratory 16 20 Rate Blood Pressure 158/88 (mmHg) O2 Sat by Pulse 100 Oximetry Oxygen Devices in Use Now: None Result Diagrams: 05/10/18 19:30 05/10/18 19:30 Assess/Plan/Problems-Billing Assessment: - Patient Problems (1) Agitation Current Visit: Yes Status: Acute Code(s): R45.1 - RESTLESSNESS AND AGITATION SNOMED Code(s): 722779606 Comment: -Pt has had history of delusional episodes and PTSD in the past -Will defer with psychiatry to manage psychiatric issues -No medical issues at this time -Pt hemodynamically stable Status and Disposition: -Please call us if there are any specific medical questions -Defer with psychiatry department
[2018-05-11] MEDS ORDERED: ARIPiprazole TAB* 5 MG ONE (16:15)
[2018-05-11] MEDS ORDERED: Haloperidol TAB* 5 MG PO PRN (16:27)
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
[2018-05-12] MEDS: ARIPiprazole TAB* 5 MG PO SCH ×2 (08:10→20:24)
[2018-05-12] MEDS: Vitamin THERAPEUTIC TAB PO SCH (08:57)
--- NOTE | 2018-05-12 12:25 | PN ---
Subjective - Subjective Date of Service: 05/12/18 Service Type: 22185 Hosp care 15 min low complexity Subjective: Ida continues to be intrusive with thought disorganization. He denies having a mental illness and says that he was brought here "because my adopted father can never understand me because he's not my real father." He displays some grandiose thinking, reporting that he is expanding his consciousness and marijuana has been relaxing him and allowing him to "vibe with people." He makes odd statements, such as "my mother is crying for me here in my heart." He admits to recent use of cannabis and alcohol but denies recent use of other drugs such as hallucinogens. He is refusing aripiprazole, claiming that it "narrows you...narrows your perspective." He is moving around the unit , coming in and out of groups and showing some lack of limits in terms of interpersonal space between himself and others, including staff and peers. He denies SI or HI. Objective - Appearance Appearance: Thin Framed Dysmorphic Features: No Hygiene: Normal Grooming: Fairly Well Kept - Behavior Psychomotor Activities: Abnormal-Increased Exhibits Abnormal Movement: No - Attitude and Relatedness Attitude and Relatedness: Psychotically Related Eye Contact: Fair - Speech Quality: Unpressured Latencies: Normal Quantity: Appropriate - Mood Patient's Decription of Mood: "Great" - Affect Observed Affect: Expansive Affect Consistent with: Euphoria - Thought Process Patient's Thought Process: Disorganized Thought Content: Yes Paranoid Ideation, No Passive Wish, No Suicidal Planning, No Homicidal Ideation - Sensorium Experiencing Hallucinations: No, Sensorium is Clear Type of Hallucinations: Visual: No, Auditory: No, Command: No - Level of Consciousness Level of Consciousness: Alert Orientation: Yes Intact, Yes Orientated to Time, Yes Orientated to Place, Yes Orientated to Person - Impulse Control Impulse Control: Poor - Insight and Judgement Insight and Judgement: Impaired - Group Participation Particating in Group Activities: No - Medication Management Medication Management Adherence: No Assessment - Assessment Merits Inpatient Hospitalization: For Immediate Safety, For Stabilization Inpatient DSM-V Dx: F12.259 Clinical Impression: 22 y.o. single, immigrant adopted from [facility] who is a freshman at [employer], with a history of cannabis induced psychosis, brought in by his adopted family due to acute presentation of thought disorganization and bizarre , agitated behavior in the context of academic stress and recent intensification of cannabis usage. 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 Continue inpatient involuntary treatment. Continued Medication Management: Start Medication Medications: Current Medications Acetaminophen (Tylenol Tab*) 650 mg PO Q4H PRN PRN Reason: PAIN or TEMP > 101 F Al Hydrox/Mg Hydrox/Simethicone (Maalox Plus*) 30 ml PO Q4H PRN PRN Reason: INDIGESTION Aripiprazole (Abilify Tab*) 10 mg PO BEDTIME [facility] Last Admin: 05/12/18 08:10 Dose: Not Given Haloperidol (Haldol Tab*) 5 mg PO Q6H PRN PRN Reason: AGITATION Lorazepam (Ativan Tab(*)) 2 mg PO Q6H PRN PRN Reason: AGITATION Multivitamins (Theragran Tab*) 1 tab PO DAILY [facility] Last Admin: 05/12/18 08:57 Dose: 1 tab - Discharge Plan Discharge Plan: Inpatient Hospitalization Lab Results - Lab Results Lab Results: 05/10/18 05/10/18 05/10/18 19:10 19:10 19:30 WBC 9.4 RBC 6.05 H Hgb 15.9 Hct 47 MCV 78 L MCH 26 L MCHC 34 RDW 15 Plt Count 550 H MPV 7.9 Neut % (Auto) 47.0 Lymph % (Auto) 40.8 [place] % (Auto) 7.1 H Eos % (Auto) 4.7 Baso % (Auto) 0.4 Absolute Neuts (auto) 4.4 Absolute Lymphs (auto) 3.8 Absolute Monos (auto) 0.7 Absolute Eos (auto) 0.4 Absolute Basos (auto) 0 Absolute Nucleated RBC 0 Nucleated RBC % 0.4 Sodium Potassium Chloride Carbon Dioxide Anion Gap BUN Creatinine Est GFR ( Amer) Est GFR (Non-Af Amer) BUN/Creatinine Ratio Glucose Hemoglobin A1c Calcium Total Bilirubin AST ALT Alkaline Phosphatase Total Protein Albumin Globulin Albumin/Globulin Ratio Triglycerides Cholesterol LDL Cholesterol HDL Cholesterol TSH Urine Color Yellow Urine Appearance Clear Urine pH 6.0 Ur Specific [place] 1.025 Urine Protein Negative Urine Ketones Negative Urine Blood Negative Urine Nitrate Negative Urine Bilirubin Negative Urine Urobilinogen Negative Ur Leukocyte Esterase Negative Urine Glucose Negative Salicylates Urine Opiates Screen None detected Acetaminophen Ur Barbiturates Screen None detected Ur Phencyclidine Scrn None detected Ur Amphetamines Screen None detected U Benzodiazepines Scrn None detected Urine Cocaine Screen None detected U Cannabinoids Screen Presumptive positive A Serum Alcohol 05/10/18 05/12/18 05/12/18 19:30 07:49 07:49 WBC RBC Hgb Hct MCV MCH MCHC RDW Plt Count MPV Neut % (Auto) Lymph % (Auto) [place] % (Auto) Eos % (Auto) Baso % (Auto) Absolute Neuts (auto) Absolute Lymphs (auto) Absolute Monos (auto) Absolute Eos (auto) Absolute Basos (auto) Absolute Nucleated RBC Nucleated RBC % Sodium 136 Potassium 4.4 Chloride 100 L Carbon Dioxide 29 Anion Gap 7 BUN 19 Creatinine 1.00 Est GFR ( Amer) 115.3 Est GFR (Non-Af Amer) 95.3 BUN/Creatinine Ratio 19.0 Glucose 80 Hemoglobin A1c 4.6 Calcium 10.3 Total Bilirubin 0.70 AST 23 ALT 24 Alkaline Phosphatase 64 Total Protein 8.5 Albumin 5.2 Globulin 3.3 Albumin/Globulin Ratio 1.6 Triglycerides 68 Cholesterol 136 LDL Cholesterol 76 HDL Cholesterol 46.2 TSH 0.85 Urine Color Urine Appearance Urine pH Ur Specific Goode Urine Protein Urine Ketones Urine Blood Urine Nitrate Urine Bilirubin Urine Urobilinogen Ur Leukocyte Esterase Urine Glucose Salicylates < 2.50 Urine Opiates Screen Acetaminophen < 15 Ur Barbiturates Screen Ur Phencyclidine Scrn Ur Amphetamines Screen U Benzodiazepines Scrn Urine Cocaine Screen U Cannabinoids Screen Serum Alcohol < 10
[2018-05-13] MEDS ORDERED: LORazepam INJ* 2 MG/ML 1 ML VIAL IM ONE (04:00)
[2018-05-13] MEDS ORDERED: Haloperidol INJ IV/IM* 5 MG/ML AMP IM ONE (04:00)
[2018-05-13] MEDS: Vitamin THERAPEUTIC TAB PO SCH (07:38)
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
[2018-05-13] MEDS: ARIPiprazole TAB* 5 MG PO SCH (22:12)
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
[2018-05-14] MEDS: Vitamin THERAPEUTIC TAB PO SCH (11:53)
--- NOTE | 2018-05-14 15:58 | PN ---
MHU: Group Therapy Note - Service Type Service Type: [id number] Group Psychotherapy - Medication Education: Patient intermittently in room, grossly off topic and intrusive when present.
[2018-05-14] MEDS: ARIPiprazole TAB* 5 MG PO SCH (20:33)
[2018-05-15] MEDS: Vitamin THERAPEUTIC TAB PO SCH (09:01)
--- NOTE | 2018-05-15 13:20 | PN ---
Subjective - Subjective Date of Service: 05/15/18 Service Type: [id number] Hosp care 15 min low complexity Subjective: Ida is not as psychotic as previously presenting on this unit. He is more alert and goal oriented. "I smoked too much weed. That's what did this to me" he states, thus displaying some improvement in his insight. Staff reports indicate that he has been rude and demanding on the unit and his boundaries remains poor, as evidenced by the fact that he interrupts several of my discussions with other patients. He denies SI or HI. Objective - Appearance Appearance: Thin Framed Dysmorphic Features: No Hygiene: Normal Grooming: Fairly Well Kept - Behavior Psychomotor Activities: Normal Exhibits Abnormal Movement: No - Attitude and Relatedness Attitude and Relatedness: Irritable Eye Contact: Fair - Speech Quality: Unpressured Latencies: Normal Quantity: Appropriate - Mood Patient's Decription of Mood: "Fine" - Affect Observed Affect: Fair Affect Consistent with: Dysphoria - Thought Process Patient's Thought Process: Circumstantial Thought Content: Yes Paranoid Ideation, No Passive Wish, No Suicidal Planning, No Homicidal Ideation - Sensorium Experiencing Hallucinations: No, Sensorium is Clear Type of Hallucinations: Visual: No, Auditory: No, Command: No - Level of Consciousness Level of Consciousness: Alert Orientation: Yes Intact, Yes Orientated to Time, Yes Orientated to Place, Yes Orientated to Person - Impulse Control Impulse Control: Poor - Insight and Judgement Insight and Judgement: Impaired - Group Participation Particating in Group Activities: No - Medication Management Medication Management Adherence: No Assessment - Assessment Merits Inpatient Hospitalization: For Immediate Safety, For Stabilization Inpatient DSM-V Dx: F12.259 Clinical Impression: 22 y.o. single, immigrant adopted from [facility] who is a freshman at [employer], with a history of cannabis induced psychosis, brought in by his adopted family due to acute presentation of thought disorganization and bizarre , agitated behavior in the context of academic stress and recent intensification of cannabis usage. 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 Nonetheless, he is starting to show some signs of improvement, likely due to forced abstinence from cannabis since admission. Considering T.O.O. but unclear if that is still necessary. Continue inpatient involuntary treatment. Continued Medication Management: Start Medication Medications: Current Medications Acetaminophen (Tylenol Tab*) 650 mg PO Q4H PRN PRN Reason: PAIN or TEMP > 101 F Al Hydrox/Mg Hydrox/Simethicone (Maalox Plus*) 30 ml PO Q4H PRN PRN Reason: INDIGESTION Aripiprazole (Abilify Tab*) 10 mg PO BEDTIME [facility] Last Admin: 05/14/18 20:33 Dose: 10 mg Haloperidol (Haldol Tab*) 5 mg PO Q6H PRN PRN Reason: AGITATION Lorazepam (Ativan Tab(*)) 2 mg PO Q6H PRN PRN Reason: AGITATION Multivitamins (Theragran Tab*) 1 tab PO DAILY [facility] Last Admin: 05/15/18 09:01 Dose: 1 tab - Discharge Plan Discharge Plan: Inpatient Hospitalization
[2018-05-15] MEDS: ARIPiprazole TAB* 5 MG PO SCH ×2 (20:54→21:32)
[2018-05-15] MEDS: LORazepam TAB(*) 1 MG PO PRN (21:54)
[2018-05-16] MEDS: Vitamin THERAPEUTIC TAB PO SCH (10:09)
--- NOTE | 2018-05-16 11:08 | PN ---
Subjective - Subjective Date of Service: 05/16/18 Service Type: [id number] Hosp care 15 min low complexity Subjective: Patient is wearing a shirt wrapped around his head with only his eyes visible. He initially avoids speech writer's attempt to converse then later approaches while I am speaking with a peer. He sits next to us, gives intense stare. He gets up to engage in conversation with another staff member. Per staff, patient accepted HS medications including prn lorazapam and slept well last night. Objective - Appearance Appearance: Thin Framed Dysmorphic Features: No Hygiene: Normal Grooming: Fairly Well Kept - Behavior Psychomotor Activities: Normal Exhibits Abnormal Movement: No - Attitude and Relatedness Attitude and Relatedness: Guarded Eye Contact: Good - intense at times - Speech Quality: Unpressured Latencies: Normal Quantity: Appropriate - Mood Patient's Decription of Mood: "Okay" - Affect Observed Affect: Tense Affect Consistent with: Dysphoria - Thought Process Patient's Thought Process: Goal Directed Thought Content: Yes Paranoid Ideation, No Passive Wish, No Suicidal Planning, No Homicidal Ideation - Sensorium Experiencing Hallucinations: No, Sensorium is Clear Type of Hallucinations: Visual: No, Auditory: No, Command: No - Level of Consciousness Level of Consciousness: Alert Orientation: Yes Intact, Yes Orientated to Time, Yes Orientated to Place, Yes Orientated to Person - Impulse Control Impulse Control: Poor - Insight and Judgement Insight and Judgement: Impaired - Group Participation Particating in Group Activities: No - Medication Management Medication Management Adherence: Yes Assessment - Assessment Merits Inpatient Hospitalization: For Immediate Safety, For Stabilization Inpatient DSM-V Dx: F12.259 Clinical Impression: 22 y.o. single, immigrant adopted from [facility] who is a freshman at [employer], with a history of cannabis induced psychosis, brought in by his adopted family due to acute presentation of thought disorganization and bizarre , agitated behavior in the context of academic stress and recent intensification of cannabis usage. Plan - Plan Treatment Plan: Name: IDA RODRIGUEZ Birthdate: 1995 [id number] The patient has been intermittently refusing aripiprazole therapy, which he previously did well on. Nonetheless, he is starting to show some signs of improvement, likely due to forced abstinence from cannabis since admission. Considering T.O.O. but unclear if that is still necessary. Continue inpatient involuntary treatment. Continued Medication Management: Different Medication Medications: Current Medications Acetaminophen (Tylenol Tab*) 650 mg PO Q4H PRN PRN Reason: PAIN or TEMP > 101 F Al Hydrox/Mg Hydrox/Simethicone (Maalox Plus*) 30 ml PO Q4H PRN PRN Reason: INDIGESTION Aripiprazole (Abilify Tab*) 10 mg PO BEDTIME [facility] Last Admin: 05/15/18 21:32 Dose: 10 mg Haloperidol (Haldol Tab*) 5 mg PO Q6H PRN PRN Reason: AGITATION Lorazepam (Ativan Tab(*)) 2 mg PO Q6H PRN PRN Reason: AGITATION Last Admin: 05/15/18 21:54 Dose: 2 mg Multivitamins (Theragran Tab*) 1 tab PO DAILY [facility] Last Admin: 05/16/18 10:09 Dose: Not Given - Discharge Plan Discharge Plan: Inpatient Hospitalization
[2018-05-16] MEDS: ARIPiprazole TAB* 5 MG PO SCH (22:42)
[2018-05-16] MEDS: LORazepam TAB(*) 1 MG PO PRN (22:42)
[2018-05-17] MEDS: Vitamin THERAPEUTIC TAB PO SCH (09:38)
[2018-05-17] MEDS: ARIPiprazole TAB* 5 MG PO SCH (20:31)
[2018-05-18] MEDS: Vitamin THERAPEUTIC TAB PO SCH (08:13)
[2018-05-18] MEDS: ARIPiprazole TAB* 5 MG PO SCH (20:35)
[2018-05-18] MEDS: LORazepam TAB(*) 1 MG PO PRN (20:40)
[2018-05-19] MEDS: Vitamin THERAPEUTIC TAB PO SCH (08:48)
--- NOTE | 2018-05-19 11:48 | PN ---
Subjective - Subjective Date of Service: 05/19/18 Service Type: [id number] Hosp care 15 min low complexity Subjective: Ida is better organized today but continues to have odd behaviors on the unit, such as intrusively doing jumping shanelle exercises right in front of the nurse's station door and making delusional statements that his medications "might kill me." He is currently minimizing his situation and insisting on discharge to home today. I spoke with his father, Chauncey Rodriguez, who indicates that their visits are tense, the patient tends to get up and down, leave the conversation and trail off into unrelated topics. Over the weekend Ida started taking his aripiprazole but doesn't believe he really needs it. Objective - Appearance Appearance: Thin Framed Dysmorphic Features: No Hygiene: Normal Grooming: Well Kept - Behavior Psychomotor Activities: Normal Exhibits Abnormal Movement: No - Attitude and Relatedness Attitude and Relatedness: Psychotically Related Eye Contact: Fair - Speech Quality: Unpressured Latencies: Normal Quantity: Terse - Mood Patient's Decription of Mood: "Okay" - Affect Observed Affect: Unvariable Affect Consistent with: Euthymia - Thought Process Patient's Thought Process: Circumstantial Thought Content: Yes Paranoid Ideation, No Passive Wish, No Suicidal Planning, No Homicidal Ideation - Sensorium Experiencing Hallucinations: No, Sensorium is Clear Type of Hallucinations: Visual: No, Auditory: No, Command: No - Level of Consciousness Level of Consciousness: Alert Orientation: Yes Intact, Yes Orientated to Time, Yes Orientated to Place, Yes Orientated to Person - Impulse Control Impulse Control: Tenuous - Insight and Judgement Insight and Judgement: Fair - Group Participation Particating in Group Activities: No - Medication Management Medication Management Adherence: Yes Assessment - Assessment Merits Inpatient Hospitalization: For Immediate Safety, For Stabilization Inpatient DSM-V Dx: F12.259 Clinical Impression: 22 y.o. single, immigrant adopted from [facility] who is a freshman at [employer], with a history of cannabis induced psychosis, brought in by his adopted family due to acute presentation of thought disorganization and bizarre , agitated behavior in the context of academic stress and recent intensification of cannabis usage. 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 His parents can come in on Saturday, May 19 for a family meeting. Considering T.O.O. but unclear if that is still necessary. Continue inpatient involuntary treatment. Continued Medication Management: Start Medication Medications: Current Medications Acetaminophen (Tylenol Tab*) 650 mg PO Q4H PRN PRN Reason: PAIN or TEMP > 101 F Al Hydrox/Mg Hydrox/Simethicone (Maalox Plus*) 30 ml PO Q4H PRN PRN Reason: INDIGESTION Aripiprazole (Abilify Tab*) 10 mg PO BEDTIME [facility] Last Admin: 05/18/18 20:35 Dose: 10 mg Haloperidol (Haldol Tab*) 5 mg PO Q6H PRN PRN Reason: AGITATION Lorazepam (Ativan Tab(*)) 2 mg PO Q6H PRN PRN Reason: AGITATION Last Admin: 05/18/18 20:40 Dose: 2 mg Multivitamins (Theragran Tab*) 1 tab PO DAILY [facility] Last Admin: 05/19/18 08:48 Dose: Not Given - Discharge Plan Discharge Plan: Inpatient Hospitalization
[2018-05-19] MEDS: ARIPiprazole TAB* 5 MG PO SCH (22:50)
[2018-05-20] MEDS: Vitamin THERAPEUTIC TAB PO SCH (08:04)
[2018-05-20] MEDS: ARIPiprazole TAB* 5 MG PO SCH ×2 (14:04→19:16)
[2018-05-21] MEDS ORDERED: hydrOXYzine HCL TAB* 50 MG ONE (07:50)
[2018-05-21] MEDS: ARIPiprazole TAB* 5 MG PO SCH (07:51)
[2018-05-21] MEDS: Vitamin THERAPEUTIC TAB PO SCH (07:52)
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
[2018-05-21] MEDS ORDERED: hydrALAZINE TAB* 25 MG PO PRN (13:20)
--- NOTE | 2018-05-21 15:54 | PN ---
MHU: Group Therapy Note - Service Type Service Type: [id number] Group Psychotherapy - Group Participation Patient Participating in Group: Yes Level of Group Participation: Attentive Relatedness to Group: Other - Danny's behavior is bizarre. He comes in the room late then announces he needs to leave. He comes back later and is attentive for several minutes and then leaves again.
[2018-05-22] MEDS ORDERED: ARIPiprazole TAB* 5 MG ONE (06:00)
[2018-05-22] MEDS: ARIPiprazole TAB* 5 MG PO SCH (07:00)
[2018-05-22] MEDS: Vitamin THERAPEUTIC TAB PO SCH (11:00)
--- NOTE | 2018-05-22 11:24 | PN ---
MHU: Group Therapy Note - Service Type Service Type: [id number] Group Psychotherapy - Cognitive Behavioral Group Therapy ( CBT):Patient was attentive and participatory in CBT programming this morning, and remained in good behavioral control. Patient expressed positive insights regarding relevant treatment interventions and goals.
[2018-05-23] MEDS: ARIPiprazole TAB* 5 MG PO SCH (08:17)
[2018-05-23] MEDS: Vitamin THERAPEUTIC TAB PO SCH (08:18)
--- NOTE | 2018-05-23 14:38 | PN ---
Subjective - Subjective Date of Service: 05/23/18 Service Type: [id number] Hosp care 15 min low complexity Subjective: Ida is doing better, more organized and more meaningfully participatory in milieu programming. I spoke with his father Chauncey yesterday, who is strongly in favor of inpatient substance abuse rehab. Although the patient acknowledges the problematic nature of his substance misuse he declines the offer of inpatient rehab referral. "I really want to go back to class and finish the semester. I would follow up with [outpatient therapist] Vidal though." He denies SI or HI. He's taking the aripiprazole daily and doing well with it. Objective - Appearance Appearance: Thin Framed Dysmorphic Features: No Hygiene: Normal Grooming: Well Kept - Behavior Psychomotor Activities: Normal Exhibits Abnormal Movement: No - Attitude and Relatedness Attitude and Relatedness: Cooperative Eye Contact: Good - Speech Quality: Unpressured Latencies: Normal Quantity: Appropriate - Mood Patient's Decription of Mood: "Good" - Affect Observed Affect: Fair Affect Consistent with: Euthymia - Thought Process Patient's Thought Process: Coherent Thought Content: No Passive Wish, No Suicidal Planning, No Homicidal Ideation, No Paranoid Ideation - Sensorium Experiencing Hallucinations: No, Sensorium is Clear Type of Hallucinations: Visual: No, Auditory: No, Command: No - Level of Consciousness Level of Consciousness: Alert Orientation: Yes Intact, Yes Orientated to Time, Yes Orientated to Place, Yes Orientated to Person - Impulse Control Impulse Control: Tenuous - Insight and Judgement Insight and Judgement: Fair - Group Participation Particating in Group Activities: Yes - Medication Management Medication Management Adherence: Yes Assessment - Assessment Merits Inpatient Hospitalization: For Immediate Safety, For Stabilization Inpatient DSM-V Dx: F12.259 Clinical Impression: 22 y.o. single, immigrant adopted from [facility] who is a freshman at [employer], with a history of cannabis induced psychosis, brought in by his adopted family due to acute presentation of thought disorganization and bizarre , agitated behavior in the context of academic stress and recent intensification of cannabis usage. 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 He is declining inpatient substance abuse rehab. Consider discharging as early as Saturday (05/26). Continue inpatient involuntary treatment. Continued Medication Management: Start Medication Medications: Current Medications Acetaminophen (Tylenol Tab*) 650 mg PO Q4H PRN PRN Reason: PAIN or TEMP > 101 F Last Admin: 05/22/18 17:49 Dose: 650 mg Al Hydrox/Mg Hydrox/Simethicone (Maalox Plus*) 30 ml PO Q4H PRN PRN Reason: INDIGESTION Aripiprazole (Abilify Tab*) 10 mg PO DAILY [facility] Last Admin: 05/23/18 08:17 Dose: 10 mg Haloperidol (Haldol Tab*) 5 mg PO Q6H PRN PRN Reason: AGITATION Hydroxyzine HCl (Atarax Tab*) 50 mg PO Q6H PRN PRN Reason: ANXIETY Lorazepam (Ativan Tab(*)) 2 mg PO Q6H PRN PRN Reason: AGITATION Last Admin: 05/18/18 20:40 Dose: 2 mg Multivitamins (Theragran Tab*) 1 tab PO DAILY [facility] Last Admin: 05/23/18 08:18 Dose: Not Given - Discharge Plan Discharge Plan: Inpatient Hospitalization
[2018-05-23] MEDS: hydrOXYzine HCL TAB* 50 MG PO PRN (20:52)
[2018-05-24] MEDS: Vitamin THERAPEUTIC TAB PO SCH ×2 (08:28→08:30)
[2018-05-24] MEDS: ARIPiprazole TAB* 5 MG PO SCH (08:28)
[2018-05-24] MEDS: hydrOXYzine HCL TAB* 50 MG PO PRN (22:02)
[2018-05-25] MEDS: ARIPiprazole TAB* 5 MG PO SCH (07:29)
[2018-05-25] MEDS: Vitamin THERAPEUTIC TAB PO SCH ×2 (07:30→13:44)
[2018-05-26] MEDS: hydrOXYzine HCL TAB* 50 MG PO PRN (03:40)
[2018-05-26] MEDS: ARIPiprazole TAB* 5 MG PO SCH (10:13)
[2018-05-26] MEDS: Vitamin THERAPEUTIC TAB PO SCH (10:14)
--- NOTE | 2018-05-26 16:49 | PN ---
Subjective - Subjective Date of Service: 05/26/18 Service Type: 24151 Family Medical Psyc Subjective: Ida is seen for family meeting with his adoptive parents, Chauncey and Bell , and unit SW Bia Tian. The patient is cooperative but very resistant to taking a medical leave from [employer]. He is similarly resisting going to inpatient drug and alcohol rehabilitation, although he agrees to consider it once his academic issues have been resolved, one way or the other. He is agreeable with continuing the medication after discharge and would like to follow up with therapist Vidal Jacobson and psychiatrist Dr. Cronin. He denies SI or HI. Objective - Appearance Appearance: Thin Framed Dysmorphic Features: No Hygiene: Normal Grooming: Well Kept - Behavior Psychomotor Activities: Normal Exhibits Abnormal Movement: No - Attitude and Relatedness Attitude and Relatedness: Cooperative Eye Contact: Good - Speech Quality: Unpressured Latencies: Normal Quantity: Appropriate - Mood Patient's Decription of Mood: "Okay" - Affect Observed Affect: Fair Affect Consistent with: Euthymia - Thought Process Patient's Thought Process: Coherent Thought Content: No Passive Wish, No Suicidal Planning, No Homicidal Ideation, No Paranoid Ideation - Sensorium Experiencing Hallucinations: Yes Type of Hallucinations: Visual: No, Auditory: No, Command: No - Level of Consciousness Level of Consciousness: Alert Orientation: Yes Intact, Yes Orientated to Time, Yes Orientated to Place, Yes Orientated to Person - Impulse Control Impulse Control: Tenuous - Insight and Judgement Insight and Judgement: Fair - Group Participation Particating in Group Activities: Yes - Medication Management Medication Management Adherence: Yes Assessment - Assessment Merits Inpatient Hospitalization: Consolidate Improvements, Pending Safe DC Plan Inpatient DSM-V Dx: F12.259 Clinical Impression: 22 y.o. single, immigrant adopted from [facility] who is a freshman at [employer], with a history of cannabis induced psychosis, brought in by his adopted family due to acute presentation of thought disorganization and bizarre , agitated behavior in the context of academic stress and recent intensification of cannabis usage. 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 He is declining inpatient substance abuse rehab. D/C to home tomorrow (12/) AM. Continue inpatient involuntary treatment. Continued Medication Management: Start Medication Medications: Current Medications Acetaminophen (Tylenol Tab*) 650 mg PO Q4H PRN PRN Reason: PAIN or TEMP > 101 F Last Admin: 05/22/18 17:49 Dose: 650 mg Al Hydrox/Mg Hydrox/Simethicone (Maalox Plus*) 30 ml PO Q4H PRN PRN Reason: INDIGESTION Aripiprazole (Abilify Tab*) 10 mg PO DAILY [facility] Last Admin: 05/26/18 10:13 Dose: 10 mg Haloperidol (Haldol Tab*) 5 mg PO Q6H PRN PRN Reason: AGITATION Hydroxyzine HCl (Atarax Tab*) 50 mg PO Q6H PRN PRN Reason: ANXIETY Last Admin: 05/26/18 03:40 Dose: 50 mg Multivitamins (Theragran Tab*) 1 tab PO DAILY [facility] Last Admin: 05/26/18 10:14 Dose: Not Given - Discharge Plan Discharge Plan: Outpatient Follow Up Outpatient Program: Private Clinician(s)
[2018-05-27 09:36] VITALS: BP 113/88
[2018-05-27] MEDS: ARIPiprazole TAB* 5 MG PO SCH (10:41)
[2018-05-27] MEDS: Vitamin THERAPEUTIC TAB PO SCH (10:41)
--- NOTE | 2018-05-27 11:48 | DS ---
DATE OF ADMISSION: 05/11/2018. DATE OF DISCHARGE: 05/27/2018. DISCHARGE DIAGNOSES: AXIS I: Cannabis-induced psychotic disorder; cannabis use disorder. AXIS II: Deferred. CONDITION AT THE TIME OF DISCHARGE: The patient is calm, cooperative, and is displaying reality-base d thinking. We have had a therapeutic family meeting with both his adoptive parents and they are in agreement with the discharge plan; in fact, they are coming this afternoon to pick him up and take hi m to [facility] where we have encouraged him to pursue a medical withdraw from this semester's cl asses. The patient is agreeable to outpatient treatment and has been referred back to substance abus e counselor Sanjuanita Jacobson, as well as psychiatrist Chaz Cronin. The patient expresses an understa nding of the importance of sobriety and is willing to attend Alcoholics Anonymous meetings in the [facility] to maintain a sober lifestyle. He is warned that any further cannabis misuse could likely res ult in further psychotic symptoms. The patient denies homicidal or suicidal thoughts. He is calm and cooperative and appropriately requesting discharge from the hospital. MENTAL STATUS EXAM AT THE TIME OF DISCHARGE: The patient is a young, somewhat slender -Americ an male who is clean and well-groomed. He is dressed in a hooded sweatshirt and jeans. He makes goo d eye contact and is fairly easy to establish a rapport with. His speech has a normal rate, tone and volume. Mood is euthymic with a full affect. Thought process is linear and goal-directed. Thought content is significant for his desire to leave the hospital. He denies suicidal or homicidal ideati ons. He denies auditory or visual hallucinations. There is no further evidence of paranoid thinking . Insight and judgment are fair given the fact that he is accepting outpatient follow-up in the [facility]. Cognitively he is awake and alert with what would appear to be an average intellect. LABORATORY DATA: Routine metabolic studies were collected on May 12 and displayed a hemoglobi n A1c of 4.6%, triglycerides 68, cholesterol 136, LDL cholesterol 76, HDL cholesterol 46.2. DISCHARGE INSTRUCTIONS TO THE PATIENT: A. Medications: He is on Aripiprazole 10 mg p.o. daily. B. Diet: Regular. C. Activities: As tolerated. The patient is a nonsmoker. There are no laboratory or diagnostic st udies pending at the time of discharge. D. Follow-up care: The patient will see Dr. Chaz Cronin within two weeks of discharge. E. Substance abuse follow-up: The patient is referred back to his substance abuse counselor, Sanjuanita chanel. HOSPITAL COURSE - PART A: Reason for admission: The patient is a 22-year-old, immigrant from [facility] [place] with a history of at least one past hospitalization for psychosis secondary to drug abuse who w as brought in by his adoptive father with a two week history of increasing symptoms of psychotic illn ess. The patient is a freshman at [employer] and his adoptive father works for [employer]. The fam phil was arriving on campus to pick him up to bring him home for the when he pres ented as distractible, psychotic, not making any sense. His father brought him to his outpatient psy chotherapist, Sanjuanita Jacobson, who encouraged the family to bring him to the hospital. While here he w as wandering around our emergency room appearing ready to elope, making disjointed non-sequitur state ments which resulted in involuntary admission to the unit. On the morning of admission the patient w as agitated, intrusive, attempting to get into the nurses' station, attempting to make physical conta ct with both staff and peers and refusing p.o. medication. Thereafter, he received intramuscular inje ctions of Ativan and Haldol for agitation. When I attempted to interview him, he was somnolent and c ould not provide me with much history. 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 He is on a [employer] scholarship and needs at least a 3.0 GPA to continue to receive financial support and he is strugg ling to maintain this. Approximately two weeks ago, the patient's father noticed that the patient see med high and was not answering questions, seeming paranoid. In between his hospitalization in of last year and April of this year, the patient had been largely asymptomatic and even able to visit his [employer] [facility] for five months in the spring without any recurrence of symptoms. According to his father, the patient stopped taking Abilify sometime in June of this year. He had not been fo llowing through with routine appointments with either his therapist or his outpatient psychiatrist, Brandy Cronin. On exam, the patient was somnolent, but prior to this he had been agitated with e cholalia, fragmented sentences, word salad at times. It is unclear whether he was using substances o ther than cannabis as his drug screen displayed only cannabinoid metabolites. HOSPITAL COURSE - PART B: Psychiatric treatment rendered: The patient was admitted to the [facility] where he was placed on q.15 minute checks for his own safety. We did initiate res umption of Aripiprazole 10 mg daily; however, it took him several days to agree to take this given th e fact that his insight was so poor. He was often intrusive with peers and staff, had limited physic al boundaries with others. On one occasion he actually entered the room of a female peer accusing he r of stealing his patient wrist band. He jumped up next to her and slammed his feet against the wind ow pane in her room, landing again on his feet and then running out of her room. He could not accoun t for these actions. In addition, he was often paranoid and hostile towards his adoptive parents dur ing their visits. Once the patient started agreeing to take Aripiprazole, his presentation dramatica lly improved. He became better organized, far less paranoid, and more able to attend groups and part icipate in milieu activities. Gradually we felt he was ready for a family meeting which was held on May 26, one day prior to discharge. At that time, both the treatment team and his parents conf ronted him about his ongoing cannabis misuse and encouraged him to pursue inpatient rehab. He did de hartman this; however, he was more agreeable to considering a medical withdraw from [facility]. Th e plan is for his parents to take him to after discharge so that he can talk to his professors and the [employer] office. My understanding is that he is considerably behind in all of his classes and the school is pessimistic about his odds of catching up them and getting any good grades out of the seme ster. The patient is agreeable with outpatient follow-up with his psychiatrist as well as psychother yosi. We see no barrier at this time to his discharge to the outpatient setting. [id number]/[facility] #: [id number]
== END 2018-05-27 11:45 | disposition home or self-care (01) | DRG 897 ==
LOC: ED 18:17 → UNDOADMIN 05-11 00:19 → BSU 05-11 00:19
PROVIDERS: ADMIT Psychiatry & Neurology Psychiatry; ATTEND Psychiatry & Neurology Psychiatry
DX: F12.259 Cannabis dependence with psychotic disorder, unspecified (principal); F10.10 Alcohol abuse, uncomplicated; Y90.0 Blood alcohol level of less than 20 mg/100 ml; F43.10 Post-traumatic stress disorder, unspecified; D57.3 Sickle-cell trait
CPT/HCPCS: 36415; 80053; 80061; 80307; 80320; 80329; 81003; 83036; 84443; 85025; 90847; 90853; 99222; 99231; 99285; A9270-GY; G0480; J1630; J2060

== ENCOUNTER 2018-06-12 11:07 | Inpatient (IN) | payer OTHER ==
[2018-06-12] MEDS ORDERED: Nicotine Inhaler* 10 MG AMP INH PRN (11:14)
[2018-06-12] MEDS ORDERED: Haloperidol INJ IV/IM* 5 MG/ML AMP IM ONE (11:14)
[2018-06-12] MEDS ORDERED: LORazepam INJ* 2 MG/ML 1 ML VIAL IM ONE (11:14)
[2018-06-12] MEDS ORDERED: hydrOXYzine IM* 50 MG/ML VIAL IM ONE (11:16)
--- NOTE | 2018-06-12 11:16 | ED ---
Psychiatric Complaint - HPI Summary HPI Summary: A 22 y/o male brought in by [employer] ambulance and police presents to [facility] with a chief complaint of aggressive behavior on 06/12/18. Per police, the patient was seen at his former high school at [employer] [facility] and the school called the police worried about his well being stating that the patient was acting out of sorts and may be a danger to others. Per police the patient made statements such as "shoot me". The patient takes abilify and has a Hx of violent episodes against others and psychosis. He denies any pain rating his pain as a 0/10. He denies SI or HI. - History Of Current Complaint Time Seen by Provider: 06/12/18 11:10 Hx Obtained From: Patient, Other: - police Onset/Duration: Sudden Onset, Lasting Hours, Still Present Timing: Hours Severity Initially: Moderate Severity Currently: Moderate Character: Angry Aggravating Factor(s): Nothing Alleviating Factor(s): Nothing Associated Signs And Symptoms: Positive: Hostile Related History: Positive For: Prior Psychiatric Issues Has Suicidal: Denies: Thoughts Has Homicidal: Denies: Thoughts - Allergies/Home Medications Allergies/Adverse Reactions: Allergies Allergy/AdvReac Type Severity Reaction Status Date / Time No Known Drug Allergies Allergy See Comment Verified 06/12/18 11:20 shrimp Allergy Swelling Verified 06/12/18 13:28 Of Face,Lips,& Throat PMH/Surg Hx/FS Hx/Imm Hx Endocrine/Hematology History: Reports: Hx Sickle Cell Disease - Sickle cell trait Denies: Hx Diabetes, Hx Thyroid Disease Cardiovascular History: Denies: Hx Hypertension, Hx Pacemaker/ICD Respiratory History: Reports: Hx Asthma Denies: Hx Chronic Obstructive Pulmonary Disease (COPD) GI History: Denies: Hx Ulcer Sensory History: Denies: Hx Contacts or Glasses, Hx Hearing Aid Opthamlomology History: Denies: Hx Contacts or Glasses Neurological History: Reports: Hx Migraine Denies: Hx Seizures Psychiatric History: Reports: Hx Post Traumatic Stress Disorder, Hx [facility]patient [facility], Hx Community Mental Health Tx, Hx of Violent Episodes Against Others, Hx Substance Abuse - Marijuana usage, Other Psychiatric Issues/Disorders - Substance-induced psychosis Denies: Hx Eating Disorder, Hx Panic Disorder - Cancer History Cancer Type, Location and Year: None reported - Surgical History Surgery Procedure, Year, and Place: Nasal passage- 2011 Infectious Disease History: Denies: Hx Hepatitis, Hx Human Immunodeficiency Virus (HIV) - Family History Known Family History: Positive: Unknown - Patient adopted from [facility] , Other - Negative thyroid disease Negative: Cardiac Disease, Hypertension, Diabetes - Social History Alcohol Use: unable to confirm Substance Use Type: Reports: Marijuana Substance Use Comment - Amount & Last Used: Marijuana Smoking Status (MU): Current Some Day Smoker Type: Cigarettes Review of Systems Negative: Fever Psychological: Other - Negative: HI or SI Positive: Other - Positive: aggressive All Other Systems Reviewed And Are Negative: Yes Physical Exam - Summary Physical Exam Summary: Appearance: The patient is well-nourished in no acute distress and in no acute pain. Skin: The skin is warm and dry and skin color reflects adequate perfusion. HEENT: The head is normocephalic and atraumatic. The pupils are equal and reactive. The conjunctivae are clear and without drainage. Nares are patent and without drainage. Mouth reveals moist mucous membranes and the throat is without erythema and exudate. The external ears are intact. The ear canals are patent and without drainage. The tympanic membranes are intact. Neck: The neck is supple with full range of motion and non-tender. There are no carotid bruits. There is no neck vein distension. Respiratory: Chest is non-tender. Lungs are clear to auscultation and breath sounds are symmetrical and equal. Cardiovascular: Heart is regular rate and rhythm. There is no murmur or rub auscultated. There is no peripheral edema and pulses are symmetrical and equal. Abdomen: The abdomen is soft and non-tender. There are normal bowel sounds heard in all four quadrants and there is no organomegaly palpated. Musculoskeletal: There is no back tenderness noted. Extremities are non-tender with full range of motion. There is good capillary refill. There is no peripheral edema or calf tenderness elicited. Neurological: Patient is alert and oriented to person, place and time. The patient has symmetrical motor strength in all four extremities. Cranial nerves are grossly intact. Deep tendon reflexes are symmetrical and equal in all four extremities. Psychiatric: The patient has an appropriate affect and does not exhibit any anxiety or depression. Triage Information Reviewed: Yes Vital Signs Reviewed: Yes Diagnostics - Laboratory Result Diagrams: 06/12/18 12:29 06/12/18 12:29 Lab Statement: Any lab studies that have been ordered have been reviewed, and results considered in the medical decision making process. Re-Evaluation - Re-Evaluation First Eval Re-Evaluation Time: 11:30 Change: Unchanged Comment: Cleared for MHE Course/Dx - Course Course Of Treatment: Mr. Davalos was obviously psychotic on arrival with paranoia and delusional thinking as well as aggressive behavior. He was treated with medications for psychosis and agitatiion and medically cleared for a MHE. They felt that he was appropriate for an involuntary admission. - Differential Dx/Clinical Impression Provider Diagnosis: Unspecified psychosis - Physician Notifications Discussed Care Of Patient With: Bridger Garduno Time Discussed With Above Provider: 12:30 Instructed by Provider To: Admit As Inpatient Discharge - Sign-Out/Discharge Documenting (check all that apply): Patient Departure - Admit - Discharge Plan Condition: Fair Disposition: ADMITTED TO [facility] Referrals: Gabriel Jaramillo MD [Primary Care Provider] - - Billing Disposition and Condition Condition: FAIR Disposition: Admitted to [facility] - Attestation Statements Document Initiated by Nathanaelibe: Yes Documenting Scribe: Shamar Coombs Provider For Whom Scribe is Documenting (Include Credential): Darrell Ross MD Scribe Attestation: I, Shamar Coombs, scribed for Darrell Ross MD on 06/12/18 at 1520. Scribe Documentation Reviewed: Yes Provider Attestation: The documentation as recorded by the nathanaelibShamar nguyễn accurately reflects the service I personally performed and the decisions made by me, Darrell Ross MD Status of Scribe Document: Viewed
[2018-06-12] MEDS ORDERED: Haloperidol INJ IV/IM* 5 MG/ML AMP ONE (11:25)
[2018-06-12] MEDS ORDERED: LORazepam INJ* 2 MG/ML 1 ML VIAL ONE (11:25)
[2018-06-12] MEDS ORDERED: Mouth Piece, Nicotine* 1 EACH CARTRIDGE INH ONE (12:00)
[2018-06-12] MEDS ORDERED: Al Hydrox/Mg Hydrox/Simet LIQ* 30 ML UDC PO PRN (12:23)
[2018-06-12] MEDS ORDERED: Acetaminophen TAB* 325 MG PO PRN (12:23)
[2018-06-12 12:47] LABS: ABS Basophils 0 10^3/ul (0-0.2); ABS Eosinophils 0.4 10^3/ul (0-0.6); ABS Lymphocytes 1.6 10^3/ul (1.0-4.8); ABS Monocytes 0.4 10^3/ul (0-0.8); ABS Neutrophils 2.2 10^3/ul (1.5-7.7); ABS Nucleated RBC 0 10^3/ul; Eosinophil % 8.6 %; Hematocrit 42 % (42-52); Hemoglobin 14.4 g/dl (14.0-18.0); Lymphocyte % 34.2 %; Mean Corpuscular HGB Conc 34 g/dl (31-36); Mean Corpuscular Hemoglobin 27 pg (27-31); Mean Corpuscular Volume 80 fL (80-94); Mean Platelet Volume 8.3 fL (7.4-10.4); Nucleated Red Blood Cells % 0.4; Platelet Count 265 10^3/ul (150-450); Red Blood Count 5.29 10^6/ul (4.00-5.40); Red Cell Distribution Width 15 % (10.5-15); White Blood Count 4.6 10^3/ul (3.5-10.8)
[2018-06-12 13:02] LABS: ALT 20 U/L (7-52); AST 24 U/L (13-39); Albumin 4.1 g/dL (3.2-5.2); Albumin/Globulin Ratio 2.1 (1-3); Alkaline Phosphatase 48 U/L (34-104); Anion Gap 5 mmol/L (2-11); Blood Urea Nitrogen 10 mg/dL (6-24); CO2 Carbon Dioxide 29 mmol/L (22-32); Calcium 9.2 mg/dL (8.6-10.3); Chloride 104 mmol/L (101-111); EGFR Non-African American 106.2 (>60); Glucose 84 mg/dL (70-100); Potassium 3.9 mmol/L (3.5-5.0); Sodium 138 mmol/L (135-145); Total Protein 6.1 g/dL (6.4-8.9)
[2018-06-12 13:17] LABS: Acetaminophen < 15 mcg/mL; Alcohol < 10 mg/dL (<10); Salicylate < 2.50 mg/dL (<30)
[2018-06-12 13:32] LABS: TSH (Thyroid Stimulating Horm) 1.01 mcIU/mL (0.34-5.60)
[2018-06-13] MEDS: ARIPiprazole TAB* 5 MG PO SCH ×2 (00:27→08:55)
[2018-06-13] MEDS: LORazepam TAB(*) 1 MG PO PRN (09:01)
[2018-06-13] MEDS: Haloperidol TAB* 5 MG PO PRN (09:02)
[2018-06-13] MEDS ORDERED: Haloperidol INJ IV/IM* 5 MG/ML AMP IM PRN (09:39)
[2018-06-13] MEDS ORDERED: LORazepam INJ* 2 MG/ML 1 ML VIAL IM PRN (09:39)
[2018-06-13] MEDS ORDERED: Haloperidol TAB* 5 MG PO ONE (10:00)
[2018-06-13] MEDS ORDERED: LORazepam TAB(*) 1 MG PO ONE (10:00)
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
[2018-06-14] MEDS: ARIPiprazole TAB* 5 MG PO SCH (07:18)
[2018-06-14] MEDS: LORazepam TAB(*) 1 MG PO PRN ×2 (07:18→20:28)
[2018-06-14] MEDS: Haloperidol TAB* 5 MG PO PRN ×2 (07:18→20:28)
[2018-06-15] MEDS: ARIPiprazole TAB* 5 MG PO SCH (08:20)
--- NOTE | 2018-06-15 15:02 | PN ---
Subjective - Subjective Date of Service: 06/15/18 Service Type: 84795 Hosp care 15 min low complexity Subjective: Ida says he made a mistake by going to his former school and causing disturbances. He may haven't taken his meds as prescribed. Feels calm now and denies any violent thoughts, hallucinations or delusions. Pacing the halls and asking frequent questions again and again. Objective - Appearance Appearance: Healthy Appearing, Thin Framed Dysmorphic Features: No Hygiene: Mal-odorous Grooming: Disheveled - Behavior Psychomotor Activities: Normal Exhibits Abnormal Movement: No - Attitude and Relatedness Attitude and Relatedness: Cooperative Eye Contact: Fair - Speech Quality: Unpressured Latencies: Normal Quantity: Appropriate - Mood Patient's Decription of Mood: "Fine" - Affect Observed Affect: Depressed Affect Consistent with: Dysphoria - Thought Process Patient's Thought Process: Coherent, Circumstantial Thought Content: No Passive Wish, No Suicidal Planning, No Homicidal Ideation, No Paranoid Ideation - Sensorium Experiencing Hallucinations: No, Sensorium is Clear Type of Hallucinations: Visual: No, Auditory: No, Command: No - Level of Consciousness Level of Consciousness: Alert Orientation: Yes Intact, Yes Orientated to Time, Yes Orientated to Place, Yes Orientated to Person - Impulse Control Impulse Control: Tenuous - Insight and Judgement Insight and Judgement: Poor - Group Participation Particating in Group Activities: No - Medication Management Medication Management Adherence: Yes Assessment - Assessment Merits Inpatient Hospitalization: For Immediate Safety, For Stabilization, Pending Safe DC Plan Plan - Plan Treatment Plan: Name: IDA RODRIGUEZ Birthdate: 1995 [id number] Continued Medication Management: Continue Outpt Medication Medications: Current Medications Acetaminophen (Tylenol Tab*) 650 mg PO Q4H PRN PRN Reason: for pain; or Temp >101 F Al Hydrox/Mg Hydrox/Simethicone (Maalox Plus*) 30 ml PO Q4H PRN PRN Reason: INDIGESTION Aripiprazole (Abilify Tab*) 10 mg PO DAILY CEM Last Admin: 06/15/18 08:20 Dose: 10 mg Haloperidol (Haldol Tab*) 5 mg PO Q6H PRN PRN Reason: AGITATION Last Admin: 06/14/18 20:28 Dose: 5 mg Haloperidol Lactate (Haldol Inj Iv/Im*) 5 mg IM ONCE PRN PRN Reason: IF REFUSES PO Lorazepam (Ativan Tab(*)) 2 mg PO Q6H PRN PRN Reason: ANXIETY Last Admin: 06/14/18 20:28 Dose: 2 mg Nicotine (Nicotine Inhaler*) 10 mg INH Q2H PRN PRN Reason: CRAVING - Discharge Plan Discharge Plan: Outpatient Follow Up Outpatient Program: [facility]
[2018-06-15] MEDS: LORazepam TAB(*) 1 MG PO PRN (21:24)
[2018-06-16] MEDS: ARIPiprazole TAB* 5 MG PO SCH (08:38)
--- NOTE | 2018-06-16 14:29 | PN ---
Subjective - Subjective Service Type: 89650 Hosp care 25 min moderate complexity Subjective: Mr Rodriguez reports he wishes to discharge so he can be with his family for Elvi. He reports he has been admitted due to a 'misunderstanding.' He acknowledges that he was aggressive with someone at the high school who told him he could not visit with a former teacher there. He was visiting with his friend Ron when I went to interview him around 1 pm after he had asked nurse Sully to check with me when I would be meeting with him. He reported no distress. His behavioral control felt tenuous, but he was calm for the most part and attempted to engage appropriately with me, though he was persistent in his request and questions about criteria for discharge. He declined to consider IM Abilify. He asked that we meet with his friend Ron, and agreed that it would be OK for me and Ron to talk without him present. Ron reported that he did not see Ida as ready for discharge given his concerning behaviors of the past few days. I told Ron I would not convey this assessment to the patient. I did tell Mr Rodriguez that his discharge depended both on his behavior on the unit and on information gathered from those who know him, including his family. Objective - Appearance Appearance: Well Developed/Nourished, Healthy Appearing, Thin Framed Dysmorphic Features: No Hygiene: Normal Grooming: Disheveled - Behavior Psychomotor Activities: Normal Exhibits Abnormal Movement: No - Attitude and Relatedness Attitude and Relatedness: Superficially Cooperative Eye Contact: Good - Speech Quality: Unpressured - except when pressing the issue of discharge Latencies: Normal Quantity: Appropriate - Mood Patient's Decription of Mood: "Fine" - Affect Observed Affect: Tense Affect Consistent with: Dysphoria - Thought Process Patient's Thought Process: Goal Directed Thought Content: No Passive Wish, No Suicidal Planning, No Homicidal Ideation, No Paranoid Ideation - Sensorium Experiencing Hallucinations: No, Sensorium is Clear - Level of Consciousness Level of Consciousness: Alert Orientation: Yes Intact, Yes Orientated to Time, Yes Orientated to Place, Yes Orientated to Person - Impulse Control Impulse Control: Tenuous - Insight and Judgement Insight and Judgement: Poor - Group Participation Particating in Group Activities: No - Medication Management Medication Management Adherence: Partial Assessment - Assessment Merits Inpatient Hospitalization: For Stabilization, For Ongoing Evaluation, For Discharge Planning, Pending Safe DC Plan Inpatient DSM-V Dx: F20.9 - also cannabis use disorder Clinical Impression: Mr Rodriguez is a single 22 year-old man admitted to the inpatient psychiatric unit after being brought to the [facility] ED by police/ambulance. He had presented as agitated and aggressive at [employer] after someone there, with whom he reports he had a conflicted relationship when he was an [employer] student, told him he could not visit with a former teacher at that time. Mr Rodriguez has been reported by nursing staff as agitated and instigating conflict on the unit, using coarse and belittling language with staff and other patients. Today when I met with him he was calmer, but his control felt tenuous. He may have been calmer due to a visit with his friend Ron. He has been taking Abilify and Ativan, but refuses the IM Abilify that would greatly increase the likelihood of long-term compliance with medications and sustained remission of psychosis. He remains fixated on discharge and frustrated that I cannot tell him when he will discharge. Plan - Plan Treatment Plan: Name: IDA RODRIGUEZ Birthdate: 1995 [id number] Continue Abilify and Ativan. Encourage patient to reconsider CEDEÑO. Gather collateral from family. Encourage positive engagement in the milieu and attendance of groups if not disruptive. Medications: Current Medications Acetaminophen (Tylenol Tab*) 650 mg PO Q4H PRN PRN Reason: for pain; or Temp >101 F Al Hydrox/Mg Hydrox/Simethicone (Maalox Plus*) 30 ml PO Q4H PRN PRN Reason: INDIGESTION Aripiprazole (Abilify Tab*) 10 mg PO DAILY CEM Last Admin: 06/16/18 08:38 Dose: 10 mg Haloperidol (Haldol Tab*) 5 mg PO Q6H PRN PRN Reason: AGITATION Last Admin: 06/14/18 20:28 Dose: 5 mg Haloperidol Lactate (Haldol Inj Iv/Im*) 5 mg IM ONCE PRN PRN Reason: IF REFUSES PO Lorazepam (Ativan Tab(*)) 2 mg PO Q6H PRN PRN Reason: ANXIETY Last Admin: 06/15/18 21:24 Dose: 2 mg Nicotine (Nicotine Inhaler*) 10 mg INH Q2H PRN PRN Reason: CRAVING - Discharge Plan Discharge Plan: Outpatient Follow Up
[2018-06-17] MEDS: ARIPiprazole TAB* 5 MG PO SCH (07:39)
--- NOTE | 2018-06-17 15:54 | PN ---
Subjective - Subjective Date of Service: 06/17/18 Service Type: 60711 Hosp care 15 min low complexity Subjective: Ida remains intrussive, guarded, argumentative and focused on privileges and computer access. Otherwise denies, hallucinations. delusions, SI or HI. Constantly pacing the halls and the day room and appears tense. Objective - Appearance Appearance: Healthy Appearing, Thin Framed Dysmorphic Features: No Hygiene: Normal Grooming: Fairly Well Kept - Behavior Psychomotor Activities: Normal Exhibits Abnormal Movement: No - Attitude and Relatedness Attitude and Relatedness: Irritable Eye Contact: Good - Speech Quality: Pressured Latencies: Short Quantity: Copious - Mood Patient's Decription of Mood: "Fine" - Affect Observed Affect: Constricted Affect Consistent with: Dysphoria - Thought Process Patient's Thought Process: Coherent, Circumstantial Thought Content: No Passive Wish, No Suicidal Planning, No Homicidal Ideation, No Paranoid Ideation - Sensorium Experiencing Hallucinations: No, Sensorium is Clear Type of Hallucinations: Visual: No, Auditory: No, Command: No - Level of Consciousness Level of Consciousness: Alert Orientation: Yes Intact, Yes Orientated to Time, Yes Orientated to Place, Yes Orientated to Person - Impulse Control Impulse Control: Tenuous - Insight and Judgement Insight and Judgement: Impaired - Group Participation Particating in Group Activities: No - Medication Management Medication Management Adherence: Yes Assessment - Assessment Merits Inpatient Hospitalization: For Immediate Safety, For Stabilization, For Discharge Planning Inpatient DSM-V Dx: F20.9 - also cannabis use disorder Clinical Impression: Mr Rodriguez is a single 22 year-old man admitted to the inpatient psychiatric unit after being brought to the [facility] by police/ambulance. He had presented as agitated and aggressive at [employer] after someone there, with whom he reports he had a conflicted relationship when he was an [employer] student, told him he could not visit with a former teacher at that time. Mr Rodriguez has been reported by nursing staff as agitated and instigating conflict on the unit, using coarse and belittling language with staff and other patients. Today when I met with him he was calmer, but his control felt tenuous. He may have been calmer due to a visit with his friend Ron. He has been taking Abilify and Ativan, but refuses the IM Abilify that would greatly increase the likelihood of long-term compliance with medications and sustained remission of psychosis. He remains fixated on discharge and frustrated that I cannot tell him when he will discharge. Plan - Plan Treatment Plan: Name: IDA RODRIGUEZ Birthdate: 1995 [id number] Continue Abilify and Ativan. Encourage patient to reconsider CEDEÑO. Gather collateral from family. Encourage positive engagement in the milieu and attendance of groups if not disruptive. Continued Medication Management: Continue Outpt Medication Medications: Current Medications Acetaminophen (Tylenol Tab*) 650 mg PO Q4H PRN PRN Reason: for pain; or Temp >101 F Al Hydrox/Mg Hydrox/Simethicone (Maalox Plus*) 30 ml PO Q4H PRN PRN Reason: INDIGESTION Aripiprazole (Abilify Tab*) 10 mg PO DAILY CEM Last Admin: 06/17/18 07:39 Dose: 10 mg Haloperidol (Haldol Tab*) 5 mg PO Q6H PRN PRN Reason: AGITATION Last Admin: 06/14/18 20:28 Dose: 5 mg Haloperidol Lactate (Haldol Inj Iv/Im*) 5 mg IM ONCE PRN PRN Reason: IF REFUSES PO Lorazepam (Ativan Tab(*)) 2 mg PO Q6H PRN PRN Reason: ANXIETY Last Admin: 06/15/18 21:24 Dose: 2 mg Nicotine (Nicotine Inhaler*) 10 mg INH Q2H PRN PRN Reason: CRAVING - Discharge Plan Discharge Plan: Outpatient Follow Up Outpatient Program: [facility]
[2018-06-18] MEDS: ARIPiprazole TAB* 5 MG PO SCH (07:34)
--- NOTE | 2018-06-18 14:01 | PN ---
Subjective - Subjective Date of Service: 06/18/18 Service Type: 46993 Hosp care 25 min moderate complexity Subjective: Again today Mr Rodriguez is argumentative toward seeking specific date of discharge , computer privileges, and a copy of his medical record. He reports that he has never had hallucinations, only an experience of cartoon-like perceptions under the influence of marijuana, at first reported as 5 years ago. He then said he did not know when this may have occurred, but that it was prior to a previous admission under influence of marijuana. He presents at first as overtly calm and appropriately engaged, but quickly reveals rigidity and irritability. Although he denies paranoia, his request for medical records and mildly irritable revision of his report of past odd perceptions, along with a rigid and contentious process of thought and relating in the daily interview seems to reveal an underlying ongoing paranoid thought process. Objective - Appearance Appearance: Thin Framed Dysmorphic Features: No Hygiene: Normal Grooming: Fairly Well Kept - with towel wrapped around head: had been folding blanket into tricorner hat-like headgear - Behavior Psychomotor Activities: Abnormal-Increased - pacing unit Exhibits Abnormal Movement: No - Attitude and Relatedness Attitude and Relatedness: Irritable Eye Contact: Good - , if a bit intense - Speech Quality: Pressured Latencies: Short Quantity: Copious - Mood Patient's Decription of Mood: "Calm" - Affect Observed Affect: Tense Affect Consistent with: Dysphoria - Thought Process Patient's Thought Process: Coherent, Goal Directed, Circumstantial Thought Content: Yes Paranoid Ideation - denies, but demonstrates, No Passive Wish, No Suicidal Planning, No Homicidal Ideation - Sensorium Experiencing Hallucinations: No, Sensorium is Clear - Level of Consciousness Level of Consciousness: Alert Orientation: Yes Intact, Yes Orientated to Time, Yes Orientated to Place, Yes Orientated to Person - Impulse Control Impulse Control: Tenuous - Insight and Judgement Insight and Judgement: Poor - Group Participation Particating in Group Activities: No - Medication Management Medication Management Adherence: Yes Assessment - Assessment Merits Inpatient Hospitalization: For Immediate Safety, For Stabilization, For Ongoing Evaluation, For Discharge Planning Inpatient DSM-V Dx: F20.9 - also cannabis use disorder Clinical Impression: Mr Rodriguez is a single 22 year-old man admitted to the inpatient psychiatric unit after being brought to the [facility] ED by police/ambulance. He had presented as agitated and aggressive at [employer] after someone there, with whom he reports he had a conflicted relationship when he was an [employer] student, told him he could not visit with a former teacher at that time. Mr Rodriguez had been reported by nursing staff during his first few days on the unit as agitated and instigating conflict with staff and other patients, using coarse and belittling language. Today when I met with him he was again calmer, but his control again felt tenuous. He has been taking Abilify and Ativan, but refuses the IM Abilify that would greatly increase the likelihood of long-term compliance with medications and sustained remission of psychosis. He remains fixated on discharge and frustrated that I cannot tell him when he will discharge. He is asking for 30 minute checks and computer privileges, though he has yet to start attending groups, which is generally taken as prerequisite to computer privileges. He allows for contact with his family to clarify recent presentation. His parents report that he had been contentious with them at times and showing signs of paranoia. They also report that they would like for him to be referred to a dual diagnosis program again, and have been looking into an option at [facility] in [place], [place], among other options. They ask that we do not convey to Danny that they agree with a longer stay to improve odds of stabilization, as they feel that would harm their relationship with their son. Plan - Plan Treatment Plan: Name: IDA RODRIGUEZ Birthdate: 1995 [id number] Continue Abilify and Ativan. Encourage patient to reconsider CEDEÑO. Ms Tian to gather further collateral from family and plan for discharge. Encourage positive engagement in the milieu and attendance of groups as prerequisite for computer privileges. Encourage insight into behaviors leading to hospitalizations as evidence of mental illness requiring patient's understanding and commitment to ongoing outpatient care. Medications: Current Medications Acetaminophen (Tylenol Tab*) 650 mg PO Q4H PRN PRN Reason: for pain; or Temp >101 F Al Hydrox/Mg Hydrox/Simethicone (Maalox Plus*) 30 ml PO Q4H PRN PRN Reason: INDIGESTION Aripiprazole (Abilify Tab*) 10 mg PO DAILY CEM Last Admin: 06/18/18 07:34 Dose: 10 mg Haloperidol (Haldol Tab*) 5 mg PO Q6H PRN PRN Reason: AGITATION Last Admin: 06/14/18 20:28 Dose: 5 mg Haloperidol Lactate (Haldol Inj Iv/Im*) 5 mg IM ONCE PRN PRN Reason: IF REFUSES PO Lorazepam (Ativan Tab(*)) 2 mg PO Q6H PRN PRN Reason: ANXIETY Last Admin: 06/15/18 21:24 Dose: 2 mg Nicotine (Nicotine Inhaler*) 10 mg INH Q2H PRN PRN Reason: CRAVING - Discharge Plan Discharge Plan: Consider Longer Term Tx - dual diagnosis treatment Outpatient Program: family considering [facility]
[2018-06-19] MEDS: ARIPiprazole TAB* 5 MG PO SCH (08:50)
--- NOTE | 2018-06-19 14:13 | PN ---
Subjective - Subjective Date of Service: 06/19/18 Service Type: 63810 Hosp care 25 min moderate complexity Subjective: Danny reports sleeping well. He denies any dangerous intent or plan. He denies any active psychotic process. He remains at times persistently intrusive, for example with clinical social work aide María, though he is now able to sit back and listen and not immediately object. He is responding appropriately to feedback now, modifying his behaviors, eg attending groups toward the goal of 30 minute checks and computer privileges. He is also more appropriately dressed. Objective - Appearance Appearance: Healthy Appearing Dysmorphic Features: No Hygiene: Normal Grooming: Fairly Well Kept - Behavior Psychomotor Activities: Normal Exhibits Abnormal Movement: No - Attitude and Relatedness Attitude and Relatedness: Cooperative Eye Contact: Fair - Speech Quality: Unpressured Latencies: Normal Quantity: Appropriate - Mood Patient's Decription of Mood: "Good" - Affect Observed Affect: Depressed Affect Consistent with: Dysphoria - Thought Process Patient's Thought Process: Coherent, Goal Directed Thought Content: No Passive Wish, No Suicidal Planning, No Homicidal Ideation, No Paranoid Ideation - Sensorium Experiencing Hallucinations: No, Sensorium is Clear - Level of Consciousness Level of Consciousness: Alert Orientation: Yes Intact, Yes Orientated to Time, Yes Orientated to Place, Yes Orientated to Person - Impulse Control Impulse Control: Intact - Insight and Judgement Insight and Judgement: Poor - Group Participation Particating in Group Activities: Yes - Medication Management Medication Management Adherence: Yes Assessment - Assessment Merits Inpatient Hospitalization: For Immediate Safety, For Stabilization, For Ongoing Evaluation, For Discharge Planning, Pending Safe DC Plan Inpatient DSM-V Dx: F20.9 - also cannabis use disorder Clinical Impression: Mr Rodriguez is a single 22 year-old man admitted to the inpatient psychiatric unit after [place] [facility] [place]ambulance. He had presented as agitated and aggressive at [employer] after someone there, with whom he reports he had a conflicted relationship when he was an [employer] student, told him he could not visit with a former teacher at that time. Mr Rodriguez had been reported by nursing staff during his first few days on the unit as agitated and instigating conflict with staff and other patients, using coarse and belittling language. Today he is calmer still, and his impulse control seems less tenuous. He has been taking Abilify and Ativan, but has refused the IM Abilify that would greatly increase the likelihood of long-term compliance with medications and sustained remission of psychosis. He is not fixated on discharge today, or at least does not press the issue. He has taken appropriate action toward gaining 30 minute checks and computer privileges, as he is attending groups and has remained in good behavioral control. His parents would like for him to be referred to a dual diagnosis program again, and have been looking into an option at [facility] in [place], [place], among other options. They ask that we do not convey to Danny that they agree with a longer stay to improve odds of stabilization, as they feel that would harm their relationship with their son. He also has yet to be informed that [facility] has put him on medical leave and may not allow him to return there. Plan - Plan Treatment Plan: Name: IDA RODRIGUEZ Birthdate: 1995 [id number] Continue Abilify and Ativan. Encourage patient to reconsider CEDEÑO. Ms Tian to gather further collateral from family and plan for discharge. Encourage positive engagement in the milieu and attendance of groups as prerequisite for computer privileges, which will be granted tomorrow if current positive behavioral trends continue. Encourage insight into behaviors leading to hospitalizations as evidence of mental illness requiring patient's understanding and commitment to ongoing outpatient care. Medications: Current Medications Acetaminophen (Tylenol Tab*) 650 mg PO Q4H PRN PRN Reason: for pain; or Temp >101 F Al Hydrox/Mg Hydrox/Simethicone (Maalox Plus*) 30 ml PO Q4H PRN PRN Reason: INDIGESTION Aripiprazole (Abilify Tab*) 10 mg PO DAILY CEM Last Admin: 06/19/18 08:50 Dose: 10 mg Haloperidol (Haldol Tab*) 5 mg PO Q6H PRN PRN Reason: AGITATION Last Admin: 06/14/18 20:28 Dose: 5 mg Haloperidol Lactate (Haldol Inj Iv/Im*) 5 mg IM ONCE PRN PRN Reason: IF REFUSES PO Lorazepam (Ativan Tab(*)) 2 mg PO Q6H PRN PRN Reason: ANXIETY Last Admin: 06/15/18 21:24 Dose: 2 mg Nicotine (Nicotine Inhaler*) 10 mg INH Q2H PRN PRN Reason: CRAVING - Discharge Plan Discharge Plan: Inpatient Hospitalization - in dual diagnosis program, per wishes of parents
[2018-06-20] MEDS: ARIPiprazole TAB* 5 MG PO SCH (08:55)
--- NOTE | 2018-06-20 10:18 | PN ---
Subjective - Subjective Date of Service: 06/20/18 Service Type: [id number] Hosp care 25 min moderate complexity Subjective: Danny reports he is in a good mood with no psychotic symptoms. He complains of feeling a little stiff, attributing this to confinement on the unit, declines a trial of benztropine to test if he may be having mild dystonia due to Abilify. He again today declines CEDEÑO aripiprazole, citing his fear of needles. He has in all interactions with this check writer salesperson in the past 24 hours been calm, cooperative and without the perseveration or pressured speech he had demonstrated earlier in his admission. He does complain of oversedation on Abilify, but agrees after discussion of risk/benefit balance to continue at current dose as a low dose against psychosis. We discussed diagnosis of schizophrenia. He did not fully concur with or object to being diagnosed with schizophrenia. He will likely benefit from further discussion of the symptoms and treatment options for this mental illness. Objective - Appearance Appearance: Well Developed/Nourished Dysmorphic Features: No Hygiene: Normal Grooming: Well Kept - Behavior Psychomotor Activities: Normal Exhibits Abnormal Movement: No - Attitude and Relatedness Attitude and Relatedness: Cooperative Eye Contact: Good - Speech Quality: Unpressured Quantity: Appropriate - Mood Patient's Decription of Mood: "Good" - Affect Observed Affect: Fair Affect Consistent with: Euthymia - Thought Process Patient's Thought Process: Coherent, Goal Directed Thought Content: No Passive Wish, No Suicidal Planning, No Homicidal Ideation, No Paranoid Ideation - Sensorium Experiencing Hallucinations: No, Sensorium is Clear - Level of Consciousness Level of Consciousness: Alert Orientation: Yes Intact, Yes Orientated to Time, Yes Orientated to Place, Yes Orientated to Person - Impulse Control Impulse Control: Intact - Insight and Judgement Insight and Judgement: Poor - Group Participation Particating in Group Activities: Yes - Medication Management Medication Management Adherence: Yes Assessment - Assessment Merits Inpatient Hospitalization: For Stabilization, Consolidate Improvements, For Discharge Planning, Pending Safe DC Plan Inpatient DSM-V Dx: F20.9 - also cannabis use disorder Clinical Impression: Mr Rodriguez is a single 22 year-old man admitted to the inpatient psychiatric unit after being brought to the [facility] [place] by police/ambulance. He had presented as agitated and aggressive at [employer] after someone there, with whom he reports he had a conflicted relationship when he was an [employer] student, told him he could not visit with a former teacher at that time. Mr Rodriguez had been reported by nursing staff during his first few days on the unit as agitated and instigating conflict with staff and other patients, using coarse and belittling language. Today he remains much calmer and demonstrating good impulse control. He has been taking Abilify and Ativan, but continues to refuse the IM Abilify that would increase the likelihood of long-term compliance with medications and sustained remission of psychosis. He is not fixated on discharge today, or at least does not press the issue. Because he has taken appropriate action toward gaining 30 minute checks and computer privileges by attending groups and remaining in good behavioral control, I will order 30 minute checks and comfort room/computer privileges. His parents would like for him to be referred to a dual diagnosis program again , and have been looking into an option at [facility] in [place], [place], among other options. They ask that we do not convey to Danny that they agree with a longer stay to improve odds of stabilization, as they feel that would harm their relationship with their son. He also has yet to be informed that [facility] has put him on medical leave and may not allow him to return there. He understands that he will resume care with Dr Garduno on Saturday. Plan - Plan Treatment Plan: Name: IDA RODRIGUEZ Birthdate: 1995 [id number] Continue Abilify and Ativan. Encourage patient to reconsider CEDEÑO. Ms Tian to gather further collateral from family and plan for discharge. Encourage positive engagement in the milieu and attendance of groups. Order computer privileges, 30 minute checks, comfort room privileges. Encourage insight into behaviors leading to hospitalizations as evidence of mental illness requiring patient's understanding and commitment to ongoing outpatient care. Medications: Current Medications Acetaminophen (Tylenol Tab*) 650 mg PO Q4H PRN PRN Reason: for pain; or Temp >101 F Al Hydrox/Mg Hydrox/Simethicone (Maalox Plus*) 30 ml PO Q4H PRN PRN Reason: INDIGESTION Aripiprazole (Abilify Tab*) 10 mg PO DAILY CEM Last Admin: 06/20/18 08:55 Dose: 10 mg Haloperidol (Haldol Tab*) 5 mg PO Q6H PRN PRN Reason: AGITATION Last Admin: 06/14/18 20:28 Dose: 5 mg Haloperidol Lactate (Haldol Inj Iv/Im*) 5 mg IM ONCE PRN PRN Reason: IF REFUSES PO Lorazepam (Ativan Tab(*)) 2 mg PO Q6H PRN PRN Reason: ANXIETY Last Admin: 06/15/18 21:24 Dose: 2 mg Nicotine (Nicotine Inhaler*) 10 mg INH Q2H PRN PRN Reason: CRAVING - Discharge Plan Discharge Plan: Drug/Alcohol Rehab - as part of inpatient dual diagnosis treatment
[2018-06-21] MEDS: ARIPiprazole TAB* 5 MG PO SCH (09:09)
[2018-06-21] MEDS ORDERED: diPHENhydraMINE PO* 25 MG PO PRN (14:57)
[2018-06-22] MEDS: ARIPiprazole TAB* 5 MG PO SCH (08:04)
[2018-06-23] MEDS: ARIPiprazole TAB* 5 MG PO SCH (08:42)
--- NOTE | 2018-06-23 11:59 | PN ---
Subjective - Subjective Date of Service: 06/23/18 Service Type: [id number] Hosp care 15 min low complexity Subjective: Ida is cooperative and does not demonstrate psychotic illness today. He complains of mild EPS but is reluctant to take Benadryl or benztropine. "I'm already on one medication, I don't want to get addicted to another." He is still resistant to the idea of inpatient substance abuse rehab, which his parents are insistent on as a prerequisite to returning to live with them. He requests a family meeting with them. Objective - Appearance Appearance: Well Developed/Nourished, Thin Framed Dysmorphic Features: No Hygiene: Normal Grooming: Well Kept - Behavior Psychomotor Activities: Normal Exhibits Abnormal Movement: No - Attitude and Relatedness Attitude and Relatedness: Cooperative Eye Contact: Fair - Speech Quality: Unpressured Latencies: Normal Quantity: Terse - Mood Patient's Decription of Mood: "Okay" - Affect Observed Affect: Fair Affect Consistent with: Euthymia - Thought Process Patient's Thought Process: Coherent Thought Content: No Passive Wish, No Suicidal Planning, No Homicidal Ideation, No Paranoid Ideation - Sensorium Experiencing Hallucinations: No, Sensorium is Clear Type of Hallucinations: Visual: No, Auditory: No, Command: No - Level of Consciousness Level of Consciousness: Alert Orientation: Yes Intact, Yes Orientated to Time, Yes Orientated to Place, Yes Orientated to Person - Impulse Control Impulse Control: Poor - Insight and Judgement Insight and Judgement: Impaired - Group Participation Particating in Group Activities: Yes - Medication Management Medication Management Adherence: Yes Assessment - Assessment Merits Inpatient Hospitalization: For Immediate Safety, For Stabilization Inpatient DSM-V Dx: F20.9 - also cannabis use disorder Clinical Impression: Mr Rodriguez is a single 22 year-old man admitted to the inpatient psychiatric unit after being [place] [facility] [place]/ambulance. He had presented as agitated and aggressive at [employer] after someone there, with whom he reports he had a conflicted relationship when he was an [employer] student, told him he could not visit with a former teacher at that time. Mr Rodriguez had been reported by nursing staff during his first few days on the unit as agitated and instigating conflict with staff and other patients, using coarse and belittling language. Today he remains much calmer and demonstrating good impulse control. He has been taking Abilify and Ativan, but continues to refuse the IM Abilify that would increase the likelihood of long-term compliance with medications and sustained remission of psychosis. He is not fixated on discharge today, or at least does not press the issue. Because he has taken appropriate action toward gaining 30 minute checks and computer privileges by attending groups and remaining in good behavioral control, I will order 30 minute checks and comfort room/computer privileges. His parents would like for him to be referred to a dual diagnosis program again , and have been looking into an option at [facility] in [place], [place], among other options. They ask that we do not convey to Danny that they agree with a longer stay to improve odds of stabilization, as they feel that would harm their relationship with their son. He also has yet to be informed that [facility] has put him on medical leave and may not allow him to return there. He understands that he will resume care with Dr Garduno on Saturday. MHU: Problem List - Patient Problems (1) Schizophrenia Current Visit: Yes Status: Acute Priority: High Code(s): F20.9 - SCHIZOPHRENIA, UNSPECIFIED SNOMED Code(s): 20386548 Plan - Plan Treatment Plan: Name: IDA RODRIGUEZ Birthdate: 1995 [id number] Continue Abilify and Ativan. Encourage patient to reconsider CEDEÑO. Ms Tian to gather further collateral from family and plan for discharge. Encourage positive engagement in the milieu and attendance of groups. Order computer privileges, 30 minute checks, comfort room privileges. Encourage insight into behaviors leading to hospitalizations as evidence of mental illness requiring patient's understanding and commitment to ongoing outpatient care. Continued Medication Management: Continue Outpt Medication Medications: Current Medications Acetaminophen (Tylenol Tab*) 650 mg PO Q4H PRN PRN Reason: for pain; or Temp >101 F Al Hydrox/Mg Hydrox/Simethicone (Maalox Plus*) 30 ml PO Q4H PRN PRN Reason: INDIGESTION Aripiprazole (Abilify Tab*) 10 mg PO DAILY CEM Last Admin: 06/23/18 08:42 Dose: 10 mg Diphenhydramine HCl (Benadryl Po*) 25 mg PO Q6H PRN PRN Reason: EPS SYMPTOMS Haloperidol (Haldol Tab*) 5 mg PO Q6H PRN PRN Reason: AGITATION Last Admin: 06/14/18 20:28 Dose: 5 mg Haloperidol Lactate (Haldol Inj Iv/Im*) 5 mg IM ONCE PRN PRN Reason: IF REFUSES PO Lorazepam (Ativan Tab(*)) 2 mg PO Q6H PRN PRN Reason: ANXIETY Last Admin: 06/15/18 21:24 Dose: 2 mg Nicotine (Nicotine Inhaler*) 10 mg INH Q2H PRN PRN Reason: CRAVING - Discharge Plan Discharge Plan: Inpatient Hospitalization
[2018-06-24] MEDS: ARIPiprazole TAB* 5 MG PO SCH (11:23)
[2018-06-25] MEDS: ARIPiprazole TAB* 5 MG PO SCH (08:06)
--- NOTE | 2018-06-25 14:36 | PN ---
Subjective - Subjective Date of Service: 06/25/18 Service Type: [id number] Family Medical Psyc Subjective: Ida is seen for a family meeting also attended by his parents, Chauncey and Bellvalery Rodriguez, and psychiatrist Dr. Kamara. Ida is defensive and embittered towards his adoptive parents, blaming them for taking him to the hospital twice recently and expressing that he was doing fine at [employer] prior to what he perceives as their interference. He is mostly argumentative with them but does agree that smoking cannabis has led him into several episodes of psychosis. He is declining the offer of inpatient drug rehab, despite his parents' refusal to allow him to return home without completing an inpatient program. Instead, he wants to stay at a friend's house and attend a local outpatient drug and alcohol clinic. He reluctantly agrees to continue on oral aripiprazole and to also continue seeing Dr. Cronin and Vidal Soto on an outpatient basis. The family is made aware of his expiring 9.39 legal status tomorrow and the hospital's obligation to discharge him, since Ida is refusing further inpatient care. He denies SI or HI. Objective - Appearance Appearance: Thin Framed Dysmorphic Features: No Hygiene: Normal - Behavior Psychomotor Activities: Normal Exhibits Abnormal Movement: No - Attitude and Relatedness Attitude and Relatedness: Guarded Eye Contact: Fair - Speech Quality: Unpressured Latencies: Normal Quantity: Appropriate - Mood Patient's Decription of Mood: "Fine" - Affect Observed Affect: Fair Affect Consistent with: Euthymia - Thought Process Patient's Thought Process: Coherent Thought Content: No Passive Wish, No Suicidal Planning, No Homicidal Ideation, No Paranoid Ideation - Sensorium Experiencing Hallucinations: No, Sensorium is Clear Type of Hallucinations: Visual: No, Auditory: No, Command: No - Level of Consciousness Level of Consciousness: Alert Orientation: Yes Intact, Yes Orientated to Time, Yes Orientated to Place, Yes Orientated to Person - Impulse Control Impulse Control: Tenuous - Insight and Judgement Insight and Judgement: Fair - Group Participation Particating in Group Activities: Yes - Medication Management Medication Management Adherence: Yes Assessment - Assessment Merits Inpatient Hospitalization: Consolidate Improvements, Pending Safe DC Plan Inpatient DSM-V Dx: F20.9 - also cannabis use disorder Clinical Impression: Mr Rodriguez is a single 22 year-old man admitted to the inpatient psychiatric unit after being [place] [facility] [place]/ambulance. He had presented as agitated and aggressive at [employer] after someone there, with whom he reports he had a conflicted relationship when he was an [employer] student, told him he could not visit with a former teacher at that time. Mr Rodriguez had been reported by nursing staff during his first few days on the unit as agitated and instigating conflict with staff and other patients, using coarse and belittling language. Today he remains much calmer and demonstrating good impulse control. He has been taking Abilify and Ativan, but continues to refuse the IM Abilify that would increase the likelihood of long-term compliance with medications and sustained remission of psychosis. He is not fixated on discharge today, or at least does not press the issue. Because he has taken appropriate action toward gaining 30 minute checks and computer privileges by attending groups and remaining in good behavioral control, I will order 30 minute checks and comfort room/computer privileges. His parents would like for him to be referred to a dual diagnosis program again , and have been looking into an option at [facility] in [place], [place], among other options. They ask that we do not convey to Danny that they agree with a longer stay to improve odds of stabilization, as they feel that would harm their relationship with their son. He also has yet to be informed that [facility] has put him on medical leave and may not allow him to return there. MHU: Problem List - Patient Problems (1) Schizophrenia Current Visit: Yes Status: Acute Priority: High Code(s): F20.9 - SCHIZOPHRENIA, UNSPECIFIED SNOMED Code(s): 45893312 Plan - Plan Treatment Plan: Name: IDA RODRIGUEZ Birthdate: 1995 [id number] Continue Abilify and Ativan. Patient refusing CEDEÑO and inpatient rehab. Cannot return to parents'. Will d/c tomorrow to stay with friend, per his insistence. Will follow up with Vidal Harrison and either [facility] or [facility]. Continued Medication Management: Continue Outpt Medication Medications: Current Medications Acetaminophen (Tylenol Tab*) 650 mg PO Q4H PRN PRN Reason: for pain; or Temp >101 F Al Hydrox/Mg Hydrox/Simethicone (Maalox Plus*) 30 ml PO Q4H PRN PRN Reason: INDIGESTION Aripiprazole (Abilify Tab*) 10 mg PO DAILY CEM Last Admin: 06/25/18 08:06 Dose: 10 mg Diphenhydramine HCl (Benadryl Po*) 25 mg PO Q6H PRN PRN Reason: EPS SYMPTOMS Haloperidol (Haldol Tab*) 5 mg PO Q6H PRN PRN Reason: AGITATION Last Admin: 06/14/18 20:28 Dose: 5 mg Haloperidol Lactate (Haldol Inj Iv/Im*) 5 mg IM ONCE PRN PRN Reason: IF REFUSES PO Lorazepam (Ativan Tab(*)) 2 mg PO Q6H PRN PRN Reason: ANXIETY Last Admin: 06/15/18 21:24 Dose: 2 mg Nicotine (Nicotine Inhaler*) 10 mg INH Q2H PRN PRN Reason: CRAVING - Discharge Plan Discharge Plan: Drug/Alcohol Rehab
[2018-06-26 08:27] VITALS: BP 128/66
[2018-06-26] MEDS: ARIPiprazole TAB* 5 MG PO SCH (10:06)
--- NOTE | 2018-06-26 21:30 | DS ---
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 [place] II: Deferred. CONDITION AT THE TIME OF DISCHARGE: Improved. The patient is no longer acting in a bizarre, irrational, or agitated fashion. He has been calm, cooperative for over a week now on the unit. In fact, he has been granted privileges such as using computer room, 30-minute checks, and going outdoors. He has been actively involved in milieu programming including therapeutic groups and activities here on the unit. Social with peers. I have spoken with his parents , who are in agreement with the discharge plan. I have also spoken with his friend, Lyn, with whom he will be staying after discharge. She is going to make sure that attending outpatient followup and outpatient substance abuse programming are a requirement for him to stay with her. Colin expresses an understanding of this. He also expresses his understanding that he needs to continue taking medications and avoiding abuse of drugs and alcohol. Furthermore, the patient has been visited by representatives at the [facility] and knows that he is not to set foot on campus until fall. He is taking this semester off from school responsibilities. Colin has done well here. He is tolerating medications well and we see no barriers to him receiving treatment in the outpatient setting. MENTAL STATUS EXAM AT THE TIME OF DISCHARGE: The patient is a slender young -Ugand[place] male, who is wearing hoodie and sweat pants. He is fairly clean, well groomed. He is calm, cooperative, although he makes limited eye contact. Speech is halting with low tones, slow rate. Mood appears to be euthymic with a somewhat guarded constricted affect. Thought process is linear, goal directed. Thought content is significant for his desire to be discharged from the hospital. He is denying suicidal or homicidal ideations. He denies auditory or visual hallucinations. Insight and judgment are fair given his willingness to take medication and followup with outpatient treatment. Cognitively, he is awake and alert with what would appear to be an average intellect. LABORATORY DATA: His most recent metabolic studies were performed on 05/12/18; at that time, his hemoglobin A1c was 4.6%, triglyceride 68, cholesterol 136, LDL cholesterol 76, HDL cholesterol 46.2. DISCHARGE INSTRUCTIONS: For the patient are as follows: A. Medications: He is taking Abilify 10 mg p.o. daily. B. Diet: Regular. C. Activities: As tolerated. The patient is a nonsmoker. There are no laboratory or diagnostic studies pending at the time of discharge. D. Followup Care: The patient will follow up with psychiatrist, Dr. Chaz Cronin, on 07/04/18, at 7 p.m. In addition, he is to follow up with his outpatient therapist, Vidal Soto, within 2 weeks of discharge. E. Substance abuse followup: The patient had an intake tomorrow morning at the [facility] on [facility] that is scheduled for 06/27/18 at 9 a.m. HOSPITAL COURSE: Part A. Reason for Admission: Colin is a 23-year-old immigrant from [facility], who was recently discharged from the behavioral science unit on 05/27/18, who now returns 2 weeks later having been nonadherent with antipsychotic medication and having resumed abuse of cannabis, who presents with paranoid, bizarre agitation, and inability to care for himself. My understanding is that the patient was apprehended by the police while trespassing on [place] property making lewd statements towards females, being aggressive, scaring faculty and students. He had no insight into his behaviors when he was brought to the emergency room and acted out aggressively there requiring stat administration of antipsychotic medication. The story I got from his father, Chauncey Davalos, is that after discharge, the patient was only sporadic in taking aripiprazole, he returned to [facility] and resisted urges from several others to take a medical leave instead trying to finish his classes for the semester. He was doing quite poor academically and becoming more and more disruptive. Apparently, 2 days prior to admission, he had been in a final exam where he created some type of class disturbance and the [facility] asked security to try to find him which they were unsuccessful at. We have received word from [facility] that he is now being placed now on an involuntary leave of absence and that he is no longer welcome on the campus. In addition to this, he began being much more argumentative and uncivilized with his parents and the friends, making rude statements, being hostile and disagreeable. When I saw him on examination on the unit, he has just received p.r.n. medication for agitation and taunting. He is somewhat sedated with obvious deficits in insight. He was asking immediate release and refusing the offer of long-acting intramuscular Abilify. Part B. Psychiatric treatment rendered: The patient was admitted to the adult behavioral health unit, placed on q.15-minute checks for his own safety. We did offer Colin the long-acting version of Abilify medications. However , he steadfastly refused this, agreeing only to the oral 10 mg dose that he had been taking prior to his release from the hospital last time. He tolerated this fairly well, although he seemed to have EPS at times. He refused the offer of Benadryl or Cogentin preferring to be on the least amount of medication necessary. His parents were both extremely eager to see him attend an inpatient substance abuse program; however, Colin refused this as well. While back on aripiprazole, he benefited greatly from this and was able to become more reality focused, able to attend the groups. He was given advanced privileges on unit such as a use of the computer and going outdoors. His parents made a stipulation that in order for him to return home to live with them, he would need to accept inpatient rehab, which he refused to do. Instead , he contacted his friend, Lyn, who is a local nurse practitioner who agreed to take him in. I had a long conversation with Lyn and she is aware of his illness and substance abuse problems and she is agreeable to setting appropriate boundaries in her home that will encourage the patient to seek treatment on the outpatient basis and move forward. The patient is tolerating his medication adequately. He is agreeable to outpatient treatment. Followups are in place with Dr. Cronin as well as the [facility] Outpatient Substance Abuse Rehabilitation Service and the patient's therapist, Vidal Soto. We are certainly wishing Colin the best for safe, healthy, and sober future. [id number]/[facility] #: [id number] MOHAMUD
== END 2018-06-26 13:31 | disposition home or self-care (01) | DRG 885 ==
LOC: ED 11:07 → BSU 16:24
PROVIDERS: ADMIT Psychiatry & Neurology Psychiatry; ATTEND Psychiatry & Neurology Psychiatry
DX: F20.9 Schizophrenia, unspecified (principal); F12.959 Cannabis use, unspecified with psychotic disorder, unspecified; G43.909 Migraine, unspecified, not intractable, without status migrainosus; F43.10 Post-traumatic stress disorder, unspecified; F17.210 Nicotine dependence, cigarettes, uncomplicated; D57.3 Sickle-cell trait; Z91.14 Patient's other noncompliance with medication regimen; Z91.013 Allergy to seafood
CPT/HCPCS: 36415; 80053; 80320; 80329; 84443; 85025; 85660; 90847; 99222; 99231; 99232; 99238; 99285; A9270-GY; G0480; J1630; J2060; J3410

== ENCOUNTER 2019-02-17 10:22 | Inpatient (IN) | payer OTHER ==
--- NOTE | 2019-02-17 10:59 | ED ---
Psychiatric Complaint - HPI Summary HPI Summary: The pt is a 23 yr old male presenting to [facility] c/o psychotic break beginning 1 hour [employer] JAVA [employer]EL[employer]. Per the clinical social work therapist, the pt has recently been obsessed with episcopalian belief and has not been himself. His mental state has been worsening for the past couple of weeks and today he bought a bus ticket to travel to [facility] in order to pursue a "point of contact with God". She notes that he took LSD last night and has been smoking marijuana. Per the father, the pt believes he has a calling to preach and he was adopted. LEVEL 5 CAVEAT. Full Hx unobtainable because pt has decreased responsiveness. - History Of Current Complaint Chief Complaint: EDMentalHealth Time Seen by Provider: 02/17/19 10:24 Hx Obtained From: Family/Pickler Helper, Other: - social drug worker Onset/Duration: Sudden Onset, Lasting Hours, Still Present Timing: Constant Severity Initially: Mild Severity Currently: None Aggravating Factor(s): Nothing Alleviating Factor(s): Nothing Ingestion History: Type/Name Of Drug - LSD, marijuana - Allergies/Home Medications Allergies/Adverse Reactions: Allergies Allergy/AdvReac Type Severity Reaction Status Date / Time shrimp Allergy Swelling Verified 06/30/18 08:15 Of Face,Lips,& Throat Home Medications: Home Medications NK [No Home Medications Reported] 02/17/19 [History Confirmed 02/17/19] PMH/Surg Hx/FS Hx/Imm Hx Endocrine/Hematology History: Reports: Hx Sickle Cell Disease - Sickle cell trait Denies: Hx Diabetes, Hx Thyroid Disease Cardiovascular History: Denies: Hx Hypertension, Hx Pacemaker/ICD Respiratory History: Reports: Hx Asthma Denies: Hx Chronic Obstructive Pulmonary Disease (COPD) GI History: Denies: Hx Ulcer Sensory History: Denies: Hx Contacts or Glasses, Hx Hearing Aid Opthamlomology History: Denies: Hx Contacts or Glasses Neurological History: Reports: Hx Migraine Denies: Hx Seizures Psychiatric History: Reports: Hx Post Traumatic Stress Disorder, Hx [facility]patient [facility], Hx Community Mental Health Tx, Hx of Violent Episodes Against Others, Hx Substance Abuse - Marijuana usage, Other Psychiatric Issues/Disorders - Substance-induced psychosis Denies: Hx Eating Disorder, Hx Panic Disorder - Cancer History Cancer Type, Location and Year: None reported - Surgical History Surgery Procedure, Year, and Place: Nasal passage- 2011 Infectious Disease History: No Infectious Disease History: Denies: Hx Hepatitis, Hx Human Immunodeficiency Virus (HIV), Traveled Outside the [place] in Last 30 Days - Family History Known Family History: Positive: Unknown - Patient adopted from [facility] , Other - Negative thyroid disease Negative: Cardiac Disease, Hypertension, Diabetes - Social History Alcohol Use: Occasionally Substance Use Type: Reports: Marijuana Substance Use Comment - Amount & Last Used: Marijuana Smoking Status (MU): Current Some Day Smoker Type: Cigarettes Review of Systems Psychological: Other - pos - psychotic break All Other Systems Reviewed And Are Negative: No - Comments Additional Review of Systems Comments: LEVEL 5 CAVEAT. Full Hx unobtainable because pt has decreased responsiveness. Physical Exam - Summary Physical Exam Summary: Constitutional: Well-developed, Well-nourished, Alert. (-) Distressed. Lying in bed with eyes closed, periodically opens them but does not speak to me. He spoke one word, "oppression", to the nurse. Skin: Warm, Dry HENT: Normocephalic; Atraumatic Eyes: Conjunctiva normal Neck: Musculoskeletal ROM normal neck. (-) JVD, (-) Stridor, (-) Tracheal deviation Cardio: Rhythm regular, rate normal, Heart sounds normal; Intact distal pulses; The pedal pulses are 2+ and symmetric. Radial pulses are 2+ and symmetric. (-) Murmur Pulmonary/Chest wall: Effort normal. (-) Respiratory distress, (-) Wheezes, (-) Rales Abd: Soft, (-) tenderness, (-) Distension, (-) Guarding, (-) Rebound Musculoskeletal: (-) Edema Lymph: (-) Cervical adenopathy Neuro: Alert, Oriented x3 Psych: Mood and affect Normal Triage Information Reviewed: Yes Vital Signs On Initial Exam: Initial Vitals Temp Pulse Resp BP Pulse Ox 97.7 F 76 14 107/64 98 02/17/19 10:25 02/17/19 10:25 02/17/19 10:25 02/17/19 10:25 02/17/19 10:25 Vital Signs Reviewed: Yes Completion Of Physical Exam Limited Due To: Level 5 - LEVEL 5 CAVEAT. Full Hx unobtainable because pt has decreased responsiveness. Diagnostics - Vital Signs Vital Signs Temp Pulse Resp BP Pulse Ox 02/17/19 10:25 97.7 F 76 14 107/64 98 - Laboratory Result Diagrams: 02/17/19 10:49 02/17/19 10:49 Lab Statement: Any lab studies that have been ordered have been reviewed, and results considered in the medical decision making process. Course/Dx - Course Course Of Treatment: Patient is here with worsening psychosis in the setting of using LSD and cannabis. Upon arrival, patient appeared catatonic and was not answering questions. Patient has multiple psychiatric admissions in the past for similar symptoms. Patient is medical cleared by myself and admitted to the behavioral science unit. - Differential Dx/Clinical Impression Provider Diagnosis: Psychosis - Physician Notifications Discussed Care Of Patient With: Copy Operator - Pt will be admitted to [facility]al Sciences. Time Discussed With Above Provider: 13:00 Instructed by Provider To: Admit As Inpatient Discharge ED - Sign-Out/Discharge Documenting (check all that apply): Patient Departure - admit Patient Received Moderate/Deep Sedation with Procedure: No - Discharge Plan Condition: Stable Disposition: PSYCHIATRIC FACILITY-[facility] - Billing Disposition and Condition Condition: STABLE Disposition: Psychiatric Facility [facility] - Attestation Statements Document Initiated by Scribe: Yes Documenting Scribe: Duke Alvarez Provider For Whom Scribe is Documenting (Include Credential): Remy Acevedo MD Scribe Attestation: Duke Goins, scribed for Remy Acevedo MD on 02/17/19 at 2211. Scribe Documentation Reviewed: Yes Provider Attestation: The documentation as recorded by the scribeDuke accurately reflects the service I personally performed and the decisions made by me, Remy Acevedo MD Status of Scribe Document: Viewed
[2019-02-17 11:02] LABS: ABS Eosinophils 0.5 10^3/ul (0-0.6); ABS Lymphocytes 2.3 10^3/ul (1.0-4.8); ABS Monocytes 0.5 10^3/ul (0-0.8); Eosinophil % 9.5 %; Hematocrit 42 % (42-52); Hemoglobin 14.6 g/dL (14.0-18.0); Lymphocyte % 42.6 %; Mean Corpuscular HGB Conc 34 g/dL (31-36); Mean Corpuscular Hemoglobin 27 pg (27-31); Mean Corpuscular Volume 80 fL (80-94); Mean Platelet Volume 8.8 fL (7.4-10.4); Nucleated Red Blood Cells % 0.3; Platelet Count 273 10^3/uL (150-450); Red Blood Count 5.32 10^6 /uL (4.18-5.48); Red Cell Distribution Width 14 % (10-15); White Blood Count 5.3 10^3/uL (3.5-10.8)
[2019-02-17 11:27] LABS: ALT 17 U/L (7-52); AST 17 U/L (13-39); Albumin 4.5 g/dL (3.2-5.2); Albumin/Globulin Ratio 2.3 (1-3); Alkaline Phosphatase 62 U/L (34-104); Anion Gap 5 mmol/L (2-11); BUN/Creatinine Ratio 15.1 (8-20); Blood Urea Nitrogen 13 mg/dL (6-24); CO2 Carbon Dioxide 29 mmol/L (22-32); Calcium 9.7 mg/dL (8.6-10.3); Chloride 104 mmol/L (101-111); EGFR African American 135.8 (>60); EGFR Non-African American 112.3 (>60); Glucose 104 mg/dL (70-100); Potassium 3.8 mmol/L (3.5-5.0); Sodium 138 mmol/L (135-145); Total Protein 6.5 g/dL (6.4-8.9)
[2019-02-17 11:28] LABS: Urine Appearance Clear; Urine Bilirubin Negative (Negative); Urine Blood Negative (Negative); Urine Color Yellow; Urine Glucose Negative (Negative); Urine Ketones Negative (Negative); Urine Nitrite Negative (Negative); Urine Protein Negative (Negative); Urine Specific Gravity 1.018 (1.010-1.030); Urine Urobilinogen Negative (Negative)
[2019-02-17 11:36] LABS: Urine Benzodiazepine Screen None Detected (None Detect); Urine Opiates Screen None Detected (None Detect)
[2019-02-17 11:54] LABS: Alcohol < 10 mg/dL (<10)
[2019-02-17 12:09] LABS: TSH (Thyroid Stimulating Horm) 0.61 mcIU/mL (0.34-5.60)
[2019-02-17] MEDS ORDERED: Al Hydrox/Mg Hydrox/Simet LIQ* 30 ML UDC PO PRN (16:04)
[2019-02-17] MEDS ORDERED: Acetaminophen TAB* 325 MG PO PRN (16:04)
--- NOTE | 2019-02-17 19:20 | HP ---
PSYCHIATRIC HISTORY AND PHYSICAL: DATE OF ADMISSION: 02/17/19 JUSTIFICATION FOR ADMISSION: The patient is in need of 24-hour supervision and care secondary to psychotic functioning with inability to care for himself in a less restrictive setting. CHIEF COMPLAINT: "When will you realize that I am God." HISTORY OF PRESENT ILLNESS: The patient is a 23-year-old immigrant from [facility], who was last discharged from the behavioral science unit on 07/29/18 , who now returns in the presence of police on a 9.41 legal status after being found on a bus that was about to depart to [facility] and behaving in a bizarre, disorganized, and disruptive fashion. In our emergency room, the patient was overtly delusional having difficulty responding to questions and expressing his own needs. He made statements that were odd to the effect of "I have been trying to remember that I am, it has been going on for ever." He was clearly disorganized, confused, and unable to provide history. When I entered his room on the behavioral science unit, he is lying down with extreme thought blocking and speech latency. He appears to be internally distracted responding to internal stimuli and he is unable to give me much in the way of history. For collateral information, I rely on his father, Isreal Davalos, who reports that the patient was discharged from the [facility] in July of 2018 after being transferred there from his last hospitalization at [facility]. The providers at [facility] felt that his condition was completely drug related and they took him off antipsychotic medications. The patient cleared up and was discharged several weeks later and returned to live with his adoptive mom and dad. 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 At some point in the intervening time, they state that Colin confessed to them that he was using small amounts of cannabis and alcohol, although they tried to dissuaded him from this, he stated that he would be fine. Unfortunately , he started spending time with a friend that he had met while an inpatient at [facility], started going to this peer's house and smoking more and more cannabis. Apparently, he had been going to the [facility], but he stopped going there and stopped following up with his outpatient substance abuse counselor, Sanjuanita Jacobson. The patient's cannabis abuse intensified within the last 4 weeks. On , which was 02/12/19, he apparently used LSD and did not come home that night to his parents' house. On Saturday, they saw him riding his bike up the street and when they went to greet him, he turned around and tried to evade them. They followed him in his car and were greatly concerned by the fact that he was running through stop signs and stop lights where traffic had to swerve to avoid him. His parents were able to call the police; however, when they interviewed Colin on Saturday on , he was coherent enough for them to release them into his parents' custody. They brought him to a psychiatric followup appointment in the outpatient clinic of Dr. Chaz Cronin on 02/16/19 where he again was bizarre and confused but not enough so to be admitted involuntarily. Colin later told them that he was going to [facility] to proselytize him and my understanding is that after purchasing a bus ticket on [email or web address], he became agitated, disruptive and bus officials had to call the authorities. PAST PSYCHIATRIC HISTORY: This is the patient's fifth psychiatric hospitalization here at [facility] with the last being in July 2018. After that most recent hospitalization, we transferred him to [facility], where he was held for 3 additional weeks. His diagnoses have include cannabis-induced psychotic disorder and there have been questions as to whether he has schizophrenia. During hospitalizations, he tends to take aripiprazole 10 mg daily with limited outpatient adherence. In the outpatient setting, he sees therapist, Sanjuanita Jacobson; psychiatrist, Dr. Chaz Cronin and he goes to [facility]. SUBSTANCE ABUSE HISTORY: The patient has a history of abusing both hallucinogens, alcohol and cannabis. Urine drug screen is positive for cannabinoids at this time. He has never been to rehab. PAST MEDICAL HISTORY: Significant for sickle cell trait. FAMILY HISTORY: The patient was adopted by an English family and has no knowledge of his biological family's medical history. SOCIAL HISTORY: The patient was born in [facility]. His father when his mother was with him and his biological mother and brother when the patient was 7 years old. He was thereafter adopted by a family that lives here in [place] and came to the [place] around the age of 9. He graduated from [employer] in 2017 and had been studying up until fall at [employer], but was forced to take a medical leave due to psychiatric illness. He denies access to firearms or any significant legal history. REVIEW OF SYSTEMS: The patient denies headache, double vision, sore throat, cough, chest pain, difficulty breathing. He denies abdominal pain, nausea, vomiting, diarrhea, or constipation. He denies difficulty ambulating, enlarged lymph nodes, fever, rashes, or changes in weight. He does endorse dry skin on his bilateral legs. PHYSICAL EXAMINATION VITAL SIGNS: Blood pressure 113/90, pulse is 75, breathing rate is 17, temperature 98.2, oxygen saturations are 98% on room air. HEENT: Head is normocephalic, atraumatic. NECK: Supple. CHEST: Clear to auscultation bilaterally. CARDIAC: Exam reveals normal heart sounds. ABDOMEN: Soft and nontender. MUSCULOSKELETAL: Exam reveals no sign of edema. NEUROLOGICAL: He is grossly intact with no focal deficits. SKIN: Warm and dry. LABORATORY DATA: Complete blood count and complete metabolic panel are all within normal limits. TSH normal at 0.61. Urinalysis within normal limits. Urine drug screen positive only for cannabinoids. MENTAL STATUS EXAMINATION: The patient is a young, slender, male wearing a hooded sweatshirt. He has minimal grooming. He is uncooperative, stares blankly at this clinician. Speech demonstrates severe latency. Mood appears to be irritable with a somewhat anxious affect. Thought process is disorganized. Thought content reveals paucity. He denies suicidal or homicidal ideations. He denies auditory or visual hallucinations; however, he does appear to be responding to internal stimuli. Insight and judgment are poor given his recent use of drugs despite history of these making him psychotic. Cognitively, he is awake and alert with what would appear to be an average intellect. DIAGNOSES: [place] I: 1. Cannabis-induced psychotic disorder. 2. Cannabis use disorder 3. Alcohol use disorder. 4. Hallucinogen use disorder. [place] II: Deferred. IMPRESSION: The patient is a 23-year-old immigrant from [facility], who has had multiple psychiatric hospitalizations within the last year, who now returns having relapsed on hallucinogens, cannabis, and alcohol and appearing to be psychotic. PLAN: The patient is admitted to the adult behavioral health unit where he is placed on q.15 minute checks for his own safety. We will resume aripiprazole 10 mg p.o. daily. I think at this point inpatient drug and alcohol rehab is indicated. Once he is thinking more clearly, we need to broach this topic with him. While he is here, he certainly encouraged to avail himself of all milieu activities including individual and group psychotherapies. [id number]/[facility] #: [id number] MOHAMUD
[2019-02-17] MEDS: ARIPiprazole TAB* 5 MG PO SCH (21:47)
[2019-02-18] MEDS: Vitamin THERAPEUTIC TAB PO SCH (09:30)
--- NOTE | 2019-02-18 11:25 | PN ---
BSU: Group Therapy Note - Service Type Service Type: [id number] Group Psychotherapy - CBT Group Note: Colin attended programming for 20 minutes. He stood staring at the art work on the wall in a rather bizarre and intrusive fashion, remaining unconcerned with his presentation or it's effect on peers.
--- NOTE | 2019-02-18 12:09 | PN ---
Subjective - Subjective Date of Service: 02/18/19 Service Type: [id number] Hosp care 15 min low complexity Subjective: Ida is doing poorly. He refused aripiprazole last night and has been posturing and irritable on the unit. He still shows evidence of thought blocking as well as paranoia and grandiose, hyperreligious thoughts. Staff reports indicate that he has twice snuck into the nursing pod in the day area and has been making sexist and homophobic slurs at staff and peers. He has tried multiple times to touch female staff inappropriately. On exam he stares at me intensely, saying "My father is my oppressor. He can oppress himself from now on." Objective - General Observations Appearance: Unkempt Appears Stated Age: Yes Stature: WNL Posture: Tense Eye Contact: Intense Behavior/Activity: Peculiar - Interaction Observations Attitude Towards Examiner: Mistrustful Stated Mood: Dysphoric Affect: Flat Speech Pattern/Tone: Delayed Thought Process: Disorganized, Blocking Thought Content: Paranoid Thought Process: Lethality: Paranoid Ideation Hallucination Type: None Delusion Type: Persecution, Grandeur, Baptist - Cognitive Function Orientation: A&O x 4 Level of Consciousness: Awake Cognition: WNL Estimated Intelligence: Normal Insight: Difficulty Acknowledging Presence of Psyciatric Problems Judgment Within Normal Limits: No Ability to Make Reasonable Decisions: Serverely Impaired - Medication Compliance Cooperative with Inpatient Medication Regimen: No - Group Participation Participates in Group Activities: No Assessment - Assessment Merits Inpatient Hospitalization: For Immediate Safety, For Stabilization Inpatient DSM-V Dx: F12.259 Clinical Impression: 23 y.o. single, immigrant from [facility] with a history of multiple psychiatric hospitalizations for psychosis, as well as abuse of cannabis, alcohol and LSD, brought in by police on due to disruptive, psychotic behavior in the community. 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 Will likely need drug/alcohol rehabilitation. Continue to treat inpatient. Continued Medication Management: Start Medication Medications: Current Medications Acetaminophen (Tylenol Tab*) 650 mg PO Q4H PRN PRN Reason: for pain; or Temp >101 F Al Hydrox/Mg Hydrox/Simethicone (Maalox Plus*) 30 ml PO Q4H PRN PRN Reason: INDIGESTION Aripiprazole (Abilify Tab*) 10 mg PO BEDTIME [facility] Last Admin: 02/17/19 21:47 Dose: Not Given Lorazepam (Ativan Tab(*)) 1 mg PO Q6H PRN PRN Reason: ANXIETY Multivitamins (Theragran Tab*) 1 tab PO DAILY [facility] Last Admin: 02/18/19 09:30 Dose: Not Given - Discharge Plan Discharge Plan: Inpatient Hospitalization Lab Results - Lab Results Lab Results: 02/17/19 02/17/19 02/17/19 10:49 10:49 11:02 WBC 5.3 RBC 5.32 Hgb 14.6 Hct 42 MCV 80 MCH 27 MCHC 34 RDW 14 Plt Count 273 MPV 8.8 Neut % (Auto) 38.2 Lymph % (Auto) 42.6 [place] % (Auto) 9.5 Eos % (Auto) 9.5 Baso % (Auto) 0.2 Absolute Neuts (auto) 2.0 Absolute Lymphs (auto) 2.3 Absolute Monos (auto) 0.5 Absolute Eos (auto) 0.5 Absolute Basos (auto) 0.0 Absolute Nucleated RBC 0.0 Nucleated RBC % 0.3 Sodium 138 Potassium 3.8 Chloride 104 Carbon Dioxide 29 Anion Gap 5 BUN 13 Creatinine 0.86 Est GFR ( Amer) 135.8 Est GFR (Non-Af Amer) 112.3 BUN/Creatinine Ratio 15.1 Glucose 104 H Calcium 9.7 Total Bilirubin 0.80 AST 17 ALT 17 Alkaline Phosphatase 62 Total Protein 6.5 Albumin 4.5 Globulin 2.0 Albumin/Globulin Ratio 2.3 TSH 0.61 Urine Color Yellow Urine Appearance Clear Urine pH 6.0 Ur Specific [place] 1.018 Urine Protein Negative Urine Ketones Negative Urine Blood Negative Urine Nitrate Negative Urine Bilirubin Negative Urine Urobilinogen Negative Ur Leukocyte Esterase Negative Urine Glucose Negative Urine Opiates Screen Ur Barbiturates Screen Ur Phencyclidine Scrn Ur Amphetamines Screen U Benzodiazepines Scrn Urine Cocaine Screen U Cannabinoids Screen Serum Alcohol < 10 02/17/19 11:02 WBC RBC Hgb Hct MCV MCH MCHC RDW Plt Count MPV Neut % (Auto) Lymph % (Auto) [place] % (Auto) Eos % (Auto) Baso % (Auto) Absolute Neuts (auto) Absolute Lymphs (auto) Absolute Monos (auto) Absolute Eos (auto) Absolute Basos (auto) Absolute Nucleated RBC Nucleated RBC % Sodium Potassium Chloride Carbon Dioxide Anion Gap BUN Creatinine Est GFR ( Amer) Est GFR (Non-Af Amer) BUN/Creatinine Ratio Glucose Calcium Total Bilirubin AST ALT Alkaline Phosphatase Total Protein Albumin Globulin Albumin/Globulin Ratio TSH Urine Color Urine Appearance Urine pH Ur Specific [place] Urine Protein Urine Ketones Urine Blood Urine Nitrate Urine Bilirubin Urine Urobilinogen Ur Leukocyte Esterase Urine Glucose Urine Opiates Screen None detected Ur Barbiturates Screen None detected Ur Phencyclidine Scrn None detected Ur Amphetamines Screen None detected U Benzodiazepines Scrn None detected Urine Cocaine Screen None detected U Cannabinoids Screen Presumptive positive A Serum Alcohol
[2019-02-18] MEDS: ARIPiprazole TAB* 5 MG PO SCH (20:43)
[2019-02-19] MEDS: Vitamin THERAPEUTIC TAB PO SCH (10:11)
--- NOTE | 2019-02-19 10:54 | PN ---
Subjective - Subjective Date of Service: 02/19/19 Service Type: [id number] Hosp care 15 min low complexity Subjective: Ida is found in his room. He follows me out into the hallway without his shirt on and stands in an odd posture with one leg arched up and resting on his inner thigh, like a mcduffie. He appears to be trying to intimidate this observer , staring intensely at me and referring to himself as "I" while he makes cryptic statements such as "You know what is going on here." He requests computer access, which I decline to authorize, as he has not been adherent with medications. "Oh, you mean it's a privilege. Like white privilege?" Staff notes indicate that he has been stalking the unit, preaching to others at times. He continues to refuse meds and did not sleep last night. Objective - General Observations Appearance: Well Groomed Appears Stated Age: Yes Stature: Short Posture: Tense Eye Contact: Intense Behavior/Activity: Stereotyped - Interaction Observations Attitude Towards Examiner: Mistrustful Stated Mood: Irritable Affect: Labile Speech Pattern/Tone: Delayed Thought Process: Disorganized Thought Content: Paranoid, Grandiose Thought Process: Lethality: Paranoid Ideation Hallucination Type: None Delusion Type: Persecution, Grandeur, Hoahaoism - Cognitive Function Orientation: A&O x 4 Level of Consciousness: Awake Cognition: WNL Estimated Intelligence: Normal Insight: Difficulty Acknowledging Presence of Psyciatric Problems Judgment Within Normal Limits: No Ability to Make Reasonable Decisions: Serverely Impaired - Medication Compliance Cooperative with Inpatient Medication Regimen: No - Group Participation Participates in Group Activities: No Assessment - Assessment Merits Inpatient Hospitalization: For Immediate Safety, For Stabilization Inpatient DSM-V Dx: F12.259 Clinical Impression: 23 y.o. single, immigrant from [facility] with a history of multiple psychiatric hospitalizations for psychosis, as well as abuse of cannabis, alcohol and LSD, brought in by police on due to disruptive, psychotic behavior in the community. 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 Will likely need drug/alcohol rehabilitation once psychosis resolves. Continue to treat inpatient. Continued Medication Management: Start Medication Medications: Current Medications Acetaminophen (Tylenol Tab*) 650 mg PO Q4H PRN PRN Reason: for pain; or Temp >101 F Al Hydrox/Mg Hydrox/Simethicone (Maalox Plus*) 30 ml PO Q4H PRN PRN Reason: INDIGESTION Aripiprazole (Abilify Tab*) 10 mg PO BEDTIME [facility] Last Admin: 02/18/19 20:43 Dose: Not Given Lorazepam (Ativan Tab(*)) 1 mg PO Q6H PRN PRN Reason: ANXIETY Multivitamins (Theragran Tab*) 1 tab PO DAILY [facility] Last Admin: 02/19/19 10:11 Dose: Not Given - Discharge Plan Discharge Plan: Drug/Alcohol Rehab
[2019-02-19] MEDS: ARIPiprazole TAB* 5 MG PO SCH (21:20)
[2019-02-20] MEDS: Vitamin THERAPEUTIC TAB PO SCH (08:30)
--- NOTE | 2019-02-20 14:10 | PN ---
Subjective - Subjective Date of Service: 02/20/19 Service Type: [id number] Hosp care 15 min low complexity Subjective: Patient reports desire to be discharged as soon as possible. He attempts to engage in conversation about the natural properties of LSD and cannabis. He has not been accepting medications and continues to make statements about being oppressed by his parents. As conversation continues, his affect becomes more restricted and he stares intensely. He exhibits mild echolalia then abruptly leaves conversation. Objective - General Observations Appearance: Malodorous Stature: Thin Posture: WNL Eye Contact: Intense Behavior/Activity: Impulsive, Agitated - Interaction Observations Attitude Towards Examiner: Defensive, Evasive, Mistrustful Stated Mood: Irritable Affect: Restricted Speech Pattern/Tone: Quiet Volume Thought Process: Disorganized Perception: WNL Thought Content: Paranoid, Grandiose Hallucination Type: Denies Delusion Type: Grandeur - Cognitive Function Orientation: A&O x 4 Level of Consciousness: Alert Cognition: Impaired Attention/Concentration Estimated Intelligence: Normal Insight: Mostly Blames Others for Problems, Difficulty Acknowledging Presence of Psyciatric Problems Judgment Within Normal Limits: No Ability to Make Reasonable Decisions: Serverely Impaired - Medication Compliance Cooperative with Inpatient Medication Regimen: No - Group Participation Participates in Group Activities: Partial Assessment - Assessment Merits Inpatient Hospitalization: For Immediate Safety, For Stabilization Inpatient DSM-V Dx: F12.259 Clinical Impression: 23 y.o. single, immigrant from [facility] with a history of multiple psychiatric hospitalizations for psychosis, as well as abuse of cannabis, alcohol and LSD, brought in by police on 9.41 due to disruptive, psychotic behavior in the community. Plan - Plan Treatment Plan: Name: IDA RODRIGUEZ Birthdate: 1995 [id number] Resume aripiprazole 10mg PO qhs. Will likely need drug/alcohol rehabilitation once psychosis resolves. Continue to treat inpatient. Continued Medication Management: Start Medication Medications: Current Medications Acetaminophen (Tylenol Tab*) 650 mg PO Q4H PRN PRN Reason: for pain; or Temp >101 F Al Hydrox/Mg Hydrox/Simethicone (Maalox Plus*) 30 ml PO Q4H PRN PRN Reason: INDIGESTION Aripiprazole (Abilify Tab*) 10 mg PO BEDTIME [facility] Last Admin: 02/19/19 21:20 Dose: Not Given Lorazepam (Ativan Tab(*)) 1 mg PO Q6H PRN PRN Reason: ANXIETY Multivitamins (Theragran Tab*) 1 tab PO DAILY [facility] Last Admin: 02/20/19 08:30 Dose: Not Given - Discharge Plan Discharge Plan: Inpatient Hospitalization
[2019-02-20] MEDS: ARIPiprazole TAB* 5 MG PO SCH (21:42)
[2019-02-21] MEDS ORDERED: OLANzapine TAB*ODT* 10 MG TAB PO ONE (01:10)
[2019-02-21] MEDS: Vitamin THERAPEUTIC TAB PO SCH (11:29)
[2019-02-21] MEDS: ARIPiprazole TAB* 5 MG PO SCH (23:34)
[2019-02-22] MEDS: LORazepam TAB(*) 1 MG PO PRN ×2 (04:01→17:21)
[2019-02-22] MEDS: Vitamin THERAPEUTIC TAB PO SCH ×2 (09:25→09:39)
[2019-02-22] MEDS: ARIPiprazole TAB* 5 MG PO SCH ×2 (17:20→19:56)
--- NOTE | 2019-02-22 19:59 | PN ---
Subjective - Subjective Date of Service: 02/22/19 Service Type: [id number] Hosp care 25 min moderate complexity Subjective: Ida has been a constant problem on the unit. Walking into other patient's private space casing fear in some of the newly admitted female patients. Very difficult to redirect, refused all meds, constantly argued with staffs. Objective - General Observations Appearance: Disheveled, Unkempt Appears Stated Age: Yes Stature: WNL Posture: WNL Eye Contact: Intense Behavior/Activity: Accelerated, Impulsive, Agitated - Interaction Observations Attitude Towards Examiner: Uncooperative, Hostile, Disrespectful Stated Mood: Dysphoric, Irritable, Angry Affect: Bright Speech Pattern/Tone: Inappropriate, Pressured, Perseverating Thought Process: Disorganized, Loose Associations Perception: WNL Thought Content: Preoccupation/Ruminations Hallucination Type: Denies Delusion Type: Denies - Cognitive Function Orientation: A&O x 4 Level of Consciousness: Awake, Alert Cognition: WNL Insight: Mostly Blames Others for Problems Judgment Within Normal Limits: No Ability to Make Reasonable Decisions: Serverely Impaired - Medication Compliance Cooperative with Inpatient Medication Regimen: No - Group Participation Participates in Group Activities: No Assessment - Assessment Merits Inpatient Hospitalization: For Immediate Safety, For Stabilization Inpatient DSM-V Dx: F12.259 Clinical Impression: 23 y.o. single, immigrant from [facility] with a history of multiple psychiatric hospitalizations for psychosis, as well as abuse of cannabis, alcohol and LSD, brought in by police on due to disruptive, psychotic behavior in the community. Plan - Plan Treatment Plan: Name: IDA RODRIGUEZ Birthdate: 1995 [id number] Resume aripiprazole 10mg PO qhs. Will likely need drug/alcohol rehabilitation once psychosis resolves. Continue to treat inpatient. Continued Medication Management: Start Medication Medications: Current Medications Acetaminophen (Tylenol Tab*) 650 mg PO Q4H PRN PRN Reason: for pain; or Temp >101 F Al Hydrox/Mg Hydrox/Simethicone (Maalox Plus*) 30 ml PO Q4H PRN PRN Reason: INDIGESTION Aripiprazole (Abilify Tab*) 10 mg PO BEDTIME [facility] Last Admin: 02/22/19 17:20 Dose: 10 mg Lorazepam (Ativan Tab(*)) 1 mg PO Q6H PRN PRN Reason: ANXIETY Last Admin: 02/22/19 17:21 Dose: 1 mg Multivitamins (Theragran Tab*) 1 tab PO DAILY [facility] Last Admin: 02/22/19 09:39 Dose: 1 tab - Discharge Plan Discharge Plan: Consider Longer Term Tx
[2019-02-23] MEDS: Vitamin THERAPEUTIC TAB PO SCH (08:02)
[2019-02-23] MEDS: LORazepam TAB(*) 1 MG PO PRN (12:07)
[2019-02-23] MEDS: ARIPiprazole TAB* 5 MG PO SCH (13:16)
--- NOTE | 2019-02-23 18:30 | PN ---
Subjective - Subjective Date of Service: 02/23/19 Service Type: [id number] Hosp care 25 min moderate complexity Subjective: Ida started taking his meds since yesterday to avoid going to [facility] and has not been pacing around with the bible over his head. He has also been staing away from other's personal boundaries. Denies SI or HI. Objective - General Observations Appearance: Neat Appears Stated Age: Yes Stature: WNL Posture: WNL Eye Contact: Intense Behavior/Activity: Accelerated, Impulsive, Agitated - Interaction Observations Attitude Towards Examiner: Cooperative, Evasive, Mistrustful Stated Mood: Dysphoric Affect: Blunted Speech Pattern/Tone: Clear, Perseverating Thought Process: Circumstantial, [place] Perception: WNL Thought Content: Preoccupation/Ruminations Hallucination Type: Denies Delusion Type: Denies - Cognitive Function Orientation: A&O x 4 Level of Consciousness: Awake, Alert, Appropriate Cognition: WNL Estimated Intelligence: Normal Insight: Mostly Blames Others for Problems Judgment Within Normal Limits: No Ability to Make Reasonable Decisions: Moderately Impaired - Medication Compliance Cooperative with Inpatient Medication Regimen: Yes - Group Participation Participates in Group Activities: No Assessment - Assessment Merits Inpatient Hospitalization: For Immediate Safety, For Stabilization, For Discharge Planning Inpatient DSM-V Dx: F12.259 Clinical Impression: 23 y.o. single, immigrant from [facility] with a history of multiple psychiatric hospitalizations for psychosis, as well as abuse of cannabis, alcohol and LSD, brought in by police on due to disruptive, psychotic behavior in the community. Plan - Plan Treatment Plan: Name: IDA RODRIGUEZ Birthdate: 1995 [id number] Resume aripiprazole 10mg PO qhs. Will likely need drug/alcohol rehabilitation once psychosis resolves. Continue to treat inpatient. Continued Medication Management: Continue Outpt Medication Medications: Current Medications Acetaminophen (Tylenol Tab*) 650 mg PO Q4H PRN PRN Reason: for pain; or Temp >101 F Al Hydrox/Mg Hydrox/Simethicone (Maalox Plus*) 30 ml PO Q4H PRN PRN Reason: INDIGESTION Aripiprazole (Abilify Tab*) 10 mg PO DAILY [facility] Last Admin: 02/23/19 13:16 Dose: 10 mg Lorazepam (Ativan Tab(*)) 1 mg PO Q6H PRN PRN Reason: ANXIETY Last Admin: 02/23/19 12:07 Dose: 1 mg Multivitamins (Theragran Tab*) 1 tab PO DAILY [facility] Last Admin: 02/23/19 08:02 Dose: 1 tab - Discharge Plan Discharge Plan: Outpatient Follow Up Outpatient Program: [facility]
[2019-02-24] MEDS: LORazepam TAB(*) 1 MG PO PRN (02:02)
[2019-02-24] MEDS: ARIPiprazole TAB* 5 MG PO SCH (07:55)
[2019-02-24] MEDS: Vitamin THERAPEUTIC TAB PO SCH (07:55)
--- NOTE | 2019-02-24 10:54 | PN ---
Subjective - Subjective Date of Service: 02/24/19 Service Type: [id number] Hosp care 15 min low complexity Subjective: Ida took his first dose of aripiprazole last night but still appears bizarre and blocked. He has wrapped a bed sheet over his head like a turban and another one around his waste like a skirt. Staff reports indicate that he had a very difficult weekend with odd behaviors such as balancing a bible on his head and repeating the words "repent" and "confess" over and over. Other attributed descriptives include "irritable", "staring" and "accusatory." Today he denies SI or HI and reports that he would like to be discharged to a friend' s apartment." Objective - General Observations Appearance: Well Groomed Appears Stated Age: Yes Stature: Short Posture: Tense Eye Contact: Intense Behavior/Activity: Peculiar - Interaction Observations Attitude Towards Examiner: Mistrustful Stated Mood: Dysphoric Affect: Blunted Speech Pattern/Tone: Delayed Thought Process: Disorganized, Blocking Thought Content: Paranoid, Grandiose Thought Process: Lethality: Paranoid Ideation Hallucination Type: None Delusion Type: Persecution, Methodist - Cognitive Function Orientation: A&O x 4 Level of Consciousness: Awake Cognition: WNL Estimated Intelligence: Normal Insight: Difficulty Acknowledging Presence of Psyciatric Problems Judgment Within Normal Limits: No Ability to Make Reasonable Decisions: Serverely Impaired - Medication Compliance Cooperative with Inpatient Medication Regimen: Partial - Group Participation Participates in Group Activities: No Assessment - Assessment Merits Inpatient Hospitalization: For Immediate Safety, For Stabilization Inpatient DSM-V Dx: F12.259 Clinical Impression: 23 y.o. single, immigrant from [facility] with a history of multiple psychiatric hospitalizations for psychosis, as well as abuse of cannabis, alcohol and LSD, brought in by police on due to disruptive, psychotic behavior in the community. 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 Will likely need drug/alcohol rehabilitation once psychosis resolves. Continue to treat inpatient. Continued Medication Management: Start Medication Medications: Current Medications Acetaminophen (Tylenol Tab*) 650 mg PO Q4H PRN PRN Reason: for pain; or Temp >101 F Al Hydrox/Mg Hydrox/Simethicone (Maalox Plus*) 30 ml PO Q4H PRN PRN Reason: INDIGESTION Aripiprazole (Abilify Tab*) 10 mg PO DAILY [facility] Last Admin: 02/24/19 07:55 Dose: 10 mg Lorazepam (Ativan Tab(*)) 1 mg PO Q6H PRN PRN Reason: ANXIETY Last Admin: 02/24/19 02:02 Dose: 1 mg Multivitamins (Theragran Tab*) 1 tab PO DAILY [facility] Last Admin: 02/24/19 07:55 Dose: 1 tab - Discharge Plan Discharge Plan: Drug/Alcohol Rehab
--- NOTE | 2019-02-24 11:45 | PN ---
BSU: Group Therapy Note - Service Type Service Type: [id number] Group Psychotherapy - CBT Group Note: Colin continues to present in a bizarre fashion, wearing a sheet around his head and standing in the doorframe of the group room with intense eye contact. He spoke briefly when told it makes people uncomfortable to be stared at, and eventually entered the room and was seated.
[2019-02-25] MEDS: ARIPiprazole TAB* 5 MG PO SCH (08:33)
[2019-02-25] MEDS: Vitamin THERAPEUTIC TAB PO SCH (08:33)
--- NOTE | 2019-02-25 13:41 | PN ---
Subjective - Subjective Date of Service: 02/25/19 Service Type: [id number] Hosp care 15 min low complexity Subjective: Ida is argumentative on exam, saying that I am "suppressing" him. He declines the offer to refer him to inpatient drug rehab, stating "You just want to put me in the little rainbow box and give me your Abilify...drugs isn't the reason I'm here. It's trauma." He requests immediate discharge to a friend named [place]. Staff reports indicate that he is still doing poorly on the unit. He slept poorly last night despite prn lorazepam at 2:00 AM and was yelling at peers who tried to use the relaxation space. He's been making hyperreligious statements to the effect that God will protect him from our spells. He will attend groups but just stare intensely at the group facilitators. He is often observed trying to intimidate certain peers. He is malodorous with a sheet wrapped around his head like an odd turban. Objective - General Observations Appearance: Malodorous Appears Stated Age: Yes Stature: Short Posture: WNL Eye Contact: Intense Behavior/Activity: Peculiar - Interaction Observations Attitude Towards Examiner: Defensive Stated Mood: Irritable Affect: Labile Speech Pattern/Tone: Rambling Thought Process: Disorganized Thought Content: Paranoid Thought Process: Lethality: Paranoid Ideation Hallucination Type: None Delusion Type: Persecution, Jew - Cognitive Function Orientation: A&O x 4 Level of Consciousness: Awake Cognition: WNL Estimated Intelligence: Normal Insight: Difficulty Acknowledging Presence of Psyciatric Problems Judgment Within Normal Limits: No Ability to Make Reasonable Decisions: Serverely Impaired - Medication Compliance Cooperative with Inpatient Medication Regimen: Yes - Group Participation Participates in Group Activities: No Assessment - Assessment Merits Inpatient Hospitalization: For Immediate Safety, For Stabilization Inpatient DSM-V Dx: F12.259 Clinical Impression: 23 y.o. single, immigrant from [facility] with a history of multiple psychiatric hospitalizations for psychosis, as well as abuse of cannabis, alcohol and LSD, brought in by police on due to disruptive, psychotic behavior in the community. 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 The patient is declining drug/alcohol rehabilitation. Perhaps ACT services with a court AOT is the best plan. Continue to treat inpatient. Continued Medication Management: Start Medication Medications: Current Medications Acetaminophen (Tylenol Tab*) 650 mg PO Q4H PRN PRN Reason: for pain; or Temp >101 F Al Hydrox/Mg Hydrox/Simethicone (Maalox Plus*) 30 ml PO Q4H PRN PRN Reason: INDIGESTION Aripiprazole (Abilify Tab*) 10 mg PO DAILY [facility] Last Admin: 02/25/19 08:33 Dose: 10 mg Lorazepam (Ativan Tab(*)) 1 mg PO Q6H PRN PRN Reason: ANXIETY Last Admin: 02/24/19 02:02 Dose: 1 mg Multivitamins (Theragran Tab*) 1 tab PO DAILY [facility] Last Admin: 02/25/19 08:33 Dose: 1 tab - Discharge Plan Discharge Plan: Inpatient Hospitalization
[2019-02-26] MEDS: ARIPiprazole TAB* 5 MG PO SCH (10:35)
[2019-02-26] MEDS: Vitamin THERAPEUTIC TAB PO SCH (10:35)
[2019-02-26] MEDS: LORazepam TAB(*) 1 MG PO PRN (14:10)
[2019-02-27] MEDS: ARIPiprazole TAB* 5 MG PO SCH (07:52)
[2019-02-27] MEDS: Vitamin THERAPEUTIC TAB PO SCH (07:53)
[2019-02-27] MEDS: LORazepam TAB(*) 1 MG PO PRN ×2 (07:54→22:36)
[2019-02-27 09:11] LABS: HDL Cholesterol 57.2 mg/dL
--- NOTE | 2019-02-27 14:09 | PN ---
Subjective - Subjective Date of Service: 02/27/19 Service Type: [id number] Hosp care 25 min moderate complexity Subjective: Ida is seen along with Nikki the Rec Therapist and Cyrus the nurse to go over his Behavioral Modification contract. This intervention has been necessitated by the patient's threatening, demanding and disrespectful behavior towards staff and peers so far this hospitalization. Ida agrees to sign the agreement but takes no responsibility for his actions up to this point. "I have not threatened anyone, I have not disrespected anyone." This is despite multiple examples provided by this ad copy writer and Nikki. Ida's point of view is that the unit treats him like a "slave" and that he is merely sticking up for himself. He continues to take aripiprazole as directed and his grooming/ dressing is plate cleaner and less bizarre. He insists that the treatment team not include his parents in discharge planning or treatment decision making. Objective - General Observations Appearance: Neat Appears Stated Age: Yes Stature: Short Posture: WNL Eye Contact: Average Behavior/Activity: WNL - Interaction Observations Attitude Towards Examiner: Defensive Stated Mood: Irritable Affect: Restricted Speech Pattern/Tone: Clear Thought Process: Coherent Thought Content: WNL Hallucination Type: None Delusion Type: None - Cognitive Function Orientation: A&O x 4 Level of Consciousness: Awake Cognition: WNL Estimated Intelligence: Normal Insight: Mostly Blames Others for Problems Judgment Within Normal Limits: No Ability to Make Reasonable Decisions: Moderately Impaired - Medication Compliance Cooperative with Inpatient Medication Regimen: Yes - Group Participation Participates in Group Activities: Partial Assessment - Assessment Merits Inpatient Hospitalization: For Immediate Safety, For Stabilization Inpatient DSM-V Dx: F12.259 Clinical Impression: 23 y.o. single, immigrant from [facility] with a history of multiple psychiatric hospitalizations for psychosis, as well as abuse of cannabis, alcohol and LSD, brought in by police on due to disruptive, psychotic behavior in the community. 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 The patient is declining drug/alcohol rehabilitation. Perhaps ACT services with a court AOT is the best plan. Continue to treat inpatient. Continued Medication Management: Start Medication Medications: Current Medications Acetaminophen (Tylenol Tab*) 650 mg PO Q4H PRN PRN Reason: for pain; or Temp >101 F Al Hydrox/Mg Hydrox/Simethicone (Maalox Plus*) 30 ml PO Q4H PRN PRN Reason: INDIGESTION Aripiprazole (Abilify Tab*) 10 mg PO DAILY [facility] Last Admin: 02/27/19 07:52 Dose: 10 mg Lorazepam (Ativan Tab(*)) 1 mg PO Q6H PRN PRN Reason: ANXIETY Last Admin: 02/27/19 07:54 Dose: 1 mg Multivitamins (Theragran Tab*) 1 tab PO DAILY [facility] Last Admin: 02/27/19 07:53 Dose: 1 tab - Discharge Plan Discharge Plan: Inpatient Hospitalization Lab Results - Lab Results Lab Results: 02/27/19 08:10 Triglycerides 43 Cholesterol 145 LDL Cholesterol 79 HDL Cholesterol 57.2
[2019-02-28] MEDS: Vitamin THERAPEUTIC TAB PO SCH (08:02)
[2019-02-28] MEDS: ARIPiprazole TAB* 5 MG PO SCH (08:02)
[2019-02-28] MEDS: LORazepam TAB(*) 1 MG PO PRN ×2 (08:03→19:32)
[2019-03-01] MEDS: Vitamin THERAPEUTIC TAB PO SCH (08:00)
[2019-03-01] MEDS: ARIPiprazole TAB* 5 MG PO SCH (08:00)
[2019-03-01] MEDS: LORazepam TAB(*) 1 MG PO PRN ×2 (08:00→22:38)
[2019-03-02] MEDS: ARIPiprazole TAB* 5 MG PO SCH (08:54)
[2019-03-02] MEDS: Vitamin THERAPEUTIC TAB PO SCH (08:54)
[2019-03-02] MEDS: LORazepam TAB(*) 1 MG PO PRN (08:56)
--- NOTE | 2019-03-02 12:23 | PN ---
Subjective - Subjective Date of Service: 03/02/19 Service Type: 75661 Hosp care 25 min moderate complexity Subjective: Ida is seen for follow up along with LIZBETH Hill. He continues to decline inpatient substance abuse referral but indicates that he would welcome outpatient services through [facility]. He is still not willing to return to live with his parents and gives us the name of a friend in the community with whom he can stay. This particular person is known to us here on the BSU from previous admissions of his own and he lives in [facility], which would prevent him from having a roommate. Danny then gives the name of an alternative friend whom he thinks he could stay with. He insists this person is sober. He is smiling broadly during the interview and still displays poor insight, however , he is able to stay on topic and staff reports indicate no behavioral problems over the weekend. He denies SI or HI. He is agreeable with ACT referral. Objective - General Observations Appearance: Well Groomed Appears Stated Age: Yes Stature: Short Posture: WNL Eye Contact: Average Behavior/Activity: WNL - Interaction Observations Attitude Towards Examiner: Cooperative Stated Mood: Expansive Affect: Bright Speech Pattern/Tone: Clear Thought Process: Coherent Thought Content: WNL Hallucination Type: None Delusion Type: None - Cognitive Function Orientation: A&O x 4 Level of Consciousness: Awake Cognition: WNL Estimated Intelligence: Normal Insight: WNL Judgment Within Normal Limits: Yes - Medication Compliance Cooperative with Inpatient Medication Regimen: Yes - Group Participation Participates in Group Activities: Yes Assessment - Assessment Merits Inpatient Hospitalization: Consolidate Improvements, Pending Safe DC Plan Inpatient DSM-V Dx: F12.259 Clinical Impression: 23 y.o. single, immigrant from [facility] with a history of multiple psychiatric hospitalizations for psychosis, as well as abuse of cannabis, alcohol and LSD, brought in by police on 9.41 due to disruptive, psychotic behavior in the community. 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 The patient is accepting drug/alcohol rehabilitation but only on an outpatient basis. Perhaps ACT services with a court AOT is the best plan. Pursue d/c on March 04. Continued Medication Management: Start Medication Medications: Current Medications Acetaminophen (Tylenol Tab*) 650 mg PO Q4H PRN PRN Reason: for pain; or Temp >101 F Al Hydrox/Mg Hydrox/Simethicone (Maalox Plus*) 30 ml PO Q4H PRN PRN Reason: INDIGESTION Aripiprazole (Abilify Tab*) 10 mg PO DAILY [facility] Last Admin: 03/02/19 08:54 Dose: 10 mg Lorazepam (Ativan Tab(*)) 1 mg PO Q6H PRN PRN Reason: ANXIETY Last Admin: 03/02/19 08:56 Dose: 1 mg Multivitamins (Theragran Tab*) 1 tab PO DAILY [facility] Last Admin: 03/02/19 08:54 Dose: 1 tab - Discharge Plan Discharge Plan: Outpatient Follow Up Outpatient Program: ACT team
[2019-03-03] MEDS: LORazepam TAB(*) 1 MG PO PRN (02:40)
[2019-03-03] MEDS: Vitamin THERAPEUTIC TAB PO SCH (10:24)
[2019-03-03] MEDS: ARIPiprazole TAB* 5 MG PO SCH (10:24)
--- NOTE | 2019-03-03 11:32 | PN ---
BSU: Group Therapy Note - Service Type Service Type: [id number] Group Psychotherapy - Cognitive Behavioral Group Therapy ( CBT):Patient presented in CBT programming as disorganized and disruptive in discussion and needed repeated redirection to attend to presented materials. Colin became agitated at one point and expressed his intentions of disrupting the group, but he accepted redirection without acting out.
[2019-03-03] MEDS: Melatonin 3 MG TAB PO SCH (20:04)
[2019-03-04] MEDS: ARIPiprazole TAB* 5 MG PO SCH (10:27)
[2019-03-04] MEDS: LORazepam TAB(*) 1 MG PO PRN (10:27)
[2019-03-04] MEDS: Vitamin THERAPEUTIC TAB PO SCH (10:28)
--- NOTE | 2019-03-04 12:03 | PN ---
Subjective - Subjective Date of Service: 03/04/19 Service Type: 53989 Hosp care 25 min moderate complexity Subjective: Ida is not doing well and appears to have regressed back into psychosis. The bed-sheet that he had been draping over himself early in the hospitalization is now back and he tells me that he is dressing in the custom of his forebears. Prior to meeting with him I fielded a voicemail from his adoptive father, Chauncey Rodriguez, which reiterated the family's concern about Ida's pending discharge. Danny apparently spoke with his adoptive mother this morning and was bizarre and hyperreligious, referring to himself as "I and I" and stating that his real father is and the Anoops are not his real parents. Staff notes indicate that he was awake most of the night standing next to the nurse's station, talking about church and trying to read his bible to the screen tacker. Yesterday, while this clinician was meeting with another patient in the unit conference room he slammed on the glass window several times demanding to speak with me. He was apparently angry that his friend Devan would not take him in as a discharge placement housing option and was claiming that I lied by stating that it was because his girlfriend wouldn't allow Ida to stay there. Members of the ACT team came yesterday to meet with him on the unit but he dismissively shooed them away without talking to them. He continues to attend groups but leaves early after staring intensely at the group leaders. Today, we meet along with unit LIZBETH Hill. The patient accuses this freelance copywriter obliquely of being a racist who is trying to psychiatrically enslave him. "I'm just kept locked up here like a circus animal for everyone to come and look at. Why don't you just admit it that what you really want to do is keep me chained up. It's like slavery." The meeting ends when he provides contact information for a different friend, although he follows this clinician through the unit attempting to reengage me "man to man." Objective - General Observations Appearance: Disheveled Appears Stated Age: Yes Stature: Short Posture: Tense Eye Contact: Intense Behavior/Activity: Peculiar - Interaction Observations Attitude Towards Examiner: Mistrustful Stated Mood: Dysphoric Affect: Labile Speech Pattern/Tone: Clear, Appropriate Thought Process: Coherent Perception: WNL Thought Content: WNL Thought Process: Lethality: Paranoid Ideation Hallucination Type: None Delusion Type: Persecution, Samaritan - Cognitive Function Orientation: A&O x 4 Level of Consciousness: Awake, Alert, Appropriate Cognition: WNL Estimated Intelligence: Normal Insight: Difficulty Acknowledging Presence of Psyciatric Problems Judgment Within Normal Limits: No Ability to Make Reasonable Decisions: Serverely Impaired - Medication Compliance Cooperative with Inpatient Medication Regimen: Yes - Group Participation Participates in Group Activities: Partial Assessment - Assessment Merits Inpatient Hospitalization: For Immediate Safety, For Stabilization Inpatient DSM-V Dx: F29 Clinical Impression: 23 y.o. single, immigrant from [facility] with a history of multiple psychiatric hospitalizations for psychosis, as well as abuse of cannabis, alcohol and LSD, brought in by police on due to disruptive, psychotic behavior in the community. BSU: Problem List - Patient Problems (1) Psychoses Current Visit: No Status: Acute Priority: High Plan - Plan Treatment Plan: Name: IDA RODRIGUEZ Birthdate: 1995 [id number] The patient is decompensating despite being free from drugs for over 2 weeks. 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 Continue aripiprazole 10mg PO qhs. We will try a different friend as a discharge placement and try again with the ACT team. We cannot rule out State Hospitalization at this point. Continued Medication Management: Start Medication Medications: Current Medications Acetaminophen (Tylenol Tab*) 650 mg PO Q4H PRN PRN Reason: for pain; or Temp >101 F Al Hydrox/Mg Hydrox/Simethicone (Maalox Plus*) 30 ml PO Q4H PRN PRN Reason: INDIGESTION Aripiprazole (Abilify Tab*) 10 mg PO DAILY [facility] Last Admin: 03/04/19 10:27 Dose: 10 mg Lorazepam (Ativan Tab(*)) 1 mg PO Q6H PRN PRN Reason: ANXIETY Last Admin: 03/04/19 10:27 Dose: 1 mg Melatonin (Melatonin) 3 mg PO BEDTIME [facility] Last Admin: 03/03/19 20:04 Dose: 3 mg Multivitamins (Theragran Tab*) 1 tab PO DAILY [facility] Last Admin: 03/04/19 10:28 Dose: 1 tab - Discharge Plan Discharge Plan: Inpatient Hospitalization
--- NOTE | 2019-03-04 16:36 | PN ---
BSU: Group Therapy Note - Service Type Service Type: [id number] Group Psychotherapy - Medication Education Group: Patient joined group and was intermittently in room. Patient asked questions that were not particularly on topic.
[2019-03-04] MEDS: Melatonin 3 MG TAB PO SCH (20:27)
[2019-03-05] MEDS: LORazepam TAB(*) 1 MG PO PRN (08:24)
[2019-03-05] MEDS: ARIPiprazole TAB* 5 MG PO SCH (08:24)
[2019-03-05] MEDS: Vitamin THERAPEUTIC TAB PO SCH (08:24)
--- NOTE | 2019-03-05 11:36 | PN ---
BSU: Group Therapy Note - Service Type Service Type: [id number] Group Psychotherapy - CBT Group Note: Danny was able to attend to discussion in group this morning better than he has been, although his particpation is limited to making simple requests. Concerns remain regarding insight an judgement.
[2019-03-05] MEDS: Melatonin 3 MG TAB PO SCH (20:44)
[2019-03-06] MEDS: LORazepam TAB(*) 1 MG PO PRN (00:42)
[2019-03-06] MEDS: ARIPiprazole TAB* 5 MG PO SCH (07:31)
[2019-03-06] MEDS: Vitamin THERAPEUTIC TAB PO SCH (07:31)
--- NOTE | 2019-03-06 11:43 | PN ---
BSU: Group Therapy Note - Service Type Service Type: [id number] Group Psychotherapy - Cognitive Behavioral Group Therapy ( CBT):Patient presented in CBT programming as disorganized and disruptive in discussion and needed repeated redirection to attend to presented materials.
--- NOTE | 2019-03-06 12:55 | PN ---
Subjective - Subjective Date of Service: 03/06/19 Service Type: 70880 Hosp care 15 min low complexity Subjective: Ida is continuing to struggle with psychotic functioning. He wandered away from the group multiple times during staff pass last evening and urinated on a building despite multiple remonstrations from staff. Today he states that aripiprazole is giving him suicidal thoughts. He is agreeable with a change in medications. He is not able to give us a coherent discharge housing option and the friends he is listing as potentially letting him stay with them are not returning our phone calls. Objective - General Observations Appearance: Disheveled Appears Stated Age: Yes Stature: Short Posture: WNL Eye Contact: Intermittent Behavior/Activity: Peculiar - Interaction Observations Attitude Towards Examiner: Cooperative Stated Mood: Dysphoric Affect: Labile Speech Pattern/Tone: Rambling Thought Process: Disorganized Thought Content: Paranoid Thought Process: Lethality: Paranoid Ideation Hallucination Type: None Delusion Type: Persecution - Cognitive Function Orientation: A&O x 4 Level of Consciousness: Awake Cognition: WNL Estimated Intelligence: Normal Insight: Difficulty Acknowledging Presence of Psyciatric Problems Judgment Within Normal Limits: No Ability to Make Reasonable Decisions: Serverely Impaired - Medication Compliance Cooperative with Inpatient Medication Regimen: Yes - Group Participation Participates in Group Activities: Partial Assessment - Assessment Merits Inpatient Hospitalization: For Immediate Safety, For Stabilization Inpatient DSM-V Dx: F29 Clinical Impression: 23 y.o. single, immigrant from [facility] with a history of multiple psychiatric hospitalizations for psychosis, as well as abuse of cannabis, alcohol and LSD, brought in by police on 9.41 due to disruptive, psychotic behavior in the community. BSU: Problem List - Patient Problems (1) Psychoses Current Visit: No Status: Acute Priority: High Plan - Plan Treatment Plan: Name: IDA RODRIGUEZ Birthdate: 1995 [id number] The patient has been decompensating despite being free from drugs for over 2 weeks. 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 We will discontinue aripiprazole and start trials of lithium 300mg PO BID and paliperidone 3mg PO BID. We will try a different friend as a discharge placement and try again with the ACT team. We cannot rule out State Hospitalization at this point. Continued Medication Management: Different Medication Medications: Current Medications Acetaminophen (Tylenol Tab*) 650 mg PO Q4H PRN PRN Reason: for pain; or Temp >101 F Al Hydrox/Mg Hydrox/Simethicone (Maalox Plus*) 30 ml PO Q4H PRN PRN Reason: INDIGESTION [place] Carbonate ([place] Carbonate Tab*) 300 mg PO BID [facility] Lorazepam (Ativan Tab(*)) 1 mg PO Q6H PRN PRN Reason: ANXIETY Last Admin: 03/06/19 00:42 Dose: 1 mg Melatonin (Melatonin) 3 mg PO BEDTIME [facility] Last Admin: 03/05/19 20:44 Dose: 3 mg Multivitamins (Theragran Tab*) 1 tab PO DAILY [facility] Last Admin: 03/06/19 07:31 Dose: 1 tab Paliperidone (Invega Er Tab*) 3 mg PO DAILY [facility] - Discharge Plan Discharge Plan: Inpatient Hospitalization
[2019-03-06] MEDS ORDERED: Paliperidone ER TAB* 3 MG TAB.ER PO SCH (13:00)
[2019-03-06] MEDS: Lithium Carbonate TAB* 300 MG PO SCH ×2 (14:57→19:08)
[2019-03-06] MEDS: Paliperidone ER TAB* 3 MG TAB.ER PO SCH (19:08)
[2019-03-06] MEDS: Melatonin 3 MG TAB PO SCH (19:08)
[2019-03-07] MEDS: Melatonin 3 MG TAB PO SCH ×2 (01:49→20:05)
[2019-03-07] MEDS: LORazepam TAB(*) 1 MG PO PRN (01:49)
[2019-03-07] MEDS: Paliperidone ER TAB* 3 MG TAB.ER PO SCH ×2 (07:07→20:05)
[2019-03-07] MEDS: Vitamin THERAPEUTIC TAB PO SCH (07:07)
[2019-03-07] MEDS: Lithium Carbonate TAB* 300 MG PO SCH ×2 (07:07→20:05)
[2019-03-08] MEDS: Lithium Carbonate TAB* 300 MG PO SCH ×2 (07:10→21:56)
[2019-03-08] MEDS: Paliperidone ER TAB* 3 MG TAB.ER PO SCH ×2 (07:10→21:57)
[2019-03-08] MEDS: Vitamin THERAPEUTIC TAB PO SCH (07:10)
[2019-03-08] MEDS: Melatonin 3 MG TAB PO SCH (21:57)
[2019-03-09] MEDS: Lithium Carbonate TAB* 300 MG PO SCH ×2 (08:48→22:11)
[2019-03-09] MEDS: Paliperidone ER TAB* 3 MG TAB.ER PO SCH ×2 (08:49→22:20)
[2019-03-09] MEDS: Vitamin THERAPEUTIC TAB PO SCH (08:49)
--- NOTE | 2019-03-09 13:29 | PN ---
Subjective - Subjective Date of Service: 03/09/19 Service Type: 76936 Hosp care 15 min low complexity Subjective: Ida remains psychotic and not doing well. He has been refusing paliperidone over the weekend, reporting that it makes him feel "pessimistic." He has been taking his lithium as directed and denies side effects. I discussed the treatment team's decision to refer him back to [facility], to which he pleads "No, don't send me back there. That place puts me into a state of mental depression." He still cannot come up with a safe discharge placement option and tells me that he has another friend that he will call to provide a place to stay. Objective - General Observations Appearance: Malodorous Appears Stated Age: Yes Stature: Short Posture: Tense Eye Contact: Avoidant Behavior/Activity: Peculiar - Interaction Observations Attitude Towards Examiner: Evasive Stated Mood: Dysphoric Affect: Restricted Speech Pattern/Tone: Delayed Thought Process: Loose Associations Thought Content: Paranoid Thought Process: Lethality: Paranoid Ideation Hallucination Type: None Delusion Type: Persecution - Cognitive Function Orientation: A&O x 4 Level of Consciousness: Awake Cognition: WNL Estimated Intelligence: Normal Insight: WNL Judgment Within Normal Limits: No Ability to Make Reasonable Decisions: Serverely Impaired - Medication Compliance Cooperative with Inpatient Medication Regimen: Partial - Group Participation Participates in Group Activities: Partial Assessment - Assessment Merits Inpatient Hospitalization: For Immediate Safety, For Stabilization Inpatient DSM-V Dx: F29 Clinical Impression: 23 y.o. single, immigrant from [facility] with a history of multiple psychiatric hospitalizations for psychosis, as well as abuse of cannabis, alcohol and LSD, brought in by police on due to disruptive, psychotic behavior in the community. BSU: Problem List - Patient Problems (1) Psychoses Current Visit: No Status: Acute Priority: High Plan - Plan Treatment Plan: Name: IDA RODRIGUEZ Birthdate: 1995 [id number] The patient is not improving. Will encourage adherence with trials of lithium 300mg PO BID and paliperidone 3mg PO BID. Check Li+ level in AM. Will pursue State Hospitalization. Continued Medication Management: Different Medication Medications: Current Medications Acetaminophen (Tylenol Tab*) 650 mg PO Q4H PRN PRN Reason: for pain; or Temp >101 F Al Hydrox/Mg Hydrox/Simethicone (Maalox Plus*) 30 ml PO Q4H PRN PRN Reason: INDIGESTION [place] Carbonate ([place] Carbonate Tab*) 300 mg PO BID [facility] Last Admin: 03/09/19 08:48 Dose: 300 mg Lorazepam (Ativan Tab(*)) 1 mg PO Q6H PRN PRN Reason: ANXIETY Last Admin: 03/07/19 01:49 Dose: 1 mg Melatonin (Melatonin) 3 mg PO BEDTIME [facility] Last Admin: 03/08/19 21:57 Dose: 3 mg Multivitamins (Theragran Tab*) 1 tab PO DAILY [facility] Last Admin: 03/09/19 08:49 Dose: 1 tab Paliperidone (Invega Er Tab*) 3 mg PO BID [facility] Last Admin: 03/09/19 08:49 Dose: Not Given - Discharge Plan Discharge Plan: Consider Longer Term Tx
[2019-03-09] MEDS: Melatonin 3 MG TAB PO SCH (22:11)
[2019-03-10] MEDS: Lithium Carbonate TAB* 300 MG PO SCH ×2 (09:37→19:52)
[2019-03-10] MEDS: Vitamin THERAPEUTIC TAB PO SCH (09:37)
[2019-03-10] MEDS: Paliperidone ER TAB* 3 MG TAB.ER PO SCH ×2 (09:37→19:53)
[2019-03-10] MEDS: Melatonin 3 MG TAB PO SCH (19:52)
[2019-03-11] MEDS: Vitamin THERAPEUTIC TAB PO SCH (10:26)
[2019-03-11] MEDS: Lithium Carbonate TAB* 300 MG PO SCH ×2 (10:26→21:27)
[2019-03-11] MEDS: Paliperidone ER TAB* 3 MG TAB.ER PO SCH ×2 (10:27→21:28)
--- NOTE | 2019-03-11 14:50 | PN ---
Subjective - Subjective Date of Service: 03/11/19 Service Type: 02490 Hosp care 15 min low complexity Subjective: Ida remains psychotic. He presents as hyperreligious, carrying around his bible and oddly staring and smiling at others. He accepted a visit from his parents last night but became angry at them for uncertain reasons. "I get lundberg like that sometimes" is all he will say about it. He has been overheard on the unit saying that "Dr. Garduno is trying to suppress me." He was also overheard during a phone conversation with a friend in front of the nurse's station saying that "When I get out of here I'm gonna roll a joint and smoke a blunt down to my tippee toes." I spoke with his friend, Lyn Bowens, with whom he has stayed in the past, who reports that he still sounded psychotic on the phone with her last night. Ida wants the team to discharge him to Lyn's mother's home, however, yLn reports that that would not be safe at all. Objective - General Observations Appearance: Disheveled Appears Stated Age: No Stature: Short Posture: WNL Eye Contact: Intense Behavior/Activity: WNL - Interaction Observations Attitude Towards Examiner: Evasive Stated Mood: Expansive, Euphoric Affect: Bright Speech Pattern/Tone: Excessive Thought Process: Tangential Thought Content: Paranoid, Grandiose Thought Process: Lethality: Paranoid Ideation Hallucination Type: None Delusion Type: Persecution, Grandeur - Cognitive Function Orientation: A&O x 4 Level of Consciousness: Awake Cognition: WNL Estimated Intelligence: Normal Insight: Difficulty Acknowledging Presence of Psyciatric Problems Judgment Within Normal Limits: No Ability to Make Reasonable Decisions: Serverely Impaired - Medication Compliance Cooperative with Inpatient Medication Regimen: Partial - Group Participation Participates in Group Activities: Partial Assessment - Assessment Merits Inpatient Hospitalization: For Immediate Safety, For Stabilization Inpatient DSM-V Dx: F29 Clinical Impression: 23 y.o. single, immigrant from [facility] with a history of multiple psychiatric hospitalizations for psychosis, as well as abuse of cannabis, alcohol and LSD, brought in by police on 9.41 due to disruptive, psychotic behavior in the community. BSU: Problem List - Patient Problems (1) Psychoses Current Visit: No Status: Acute Priority: High Plan - Plan Treatment Plan: Name: IDA RODRIGUEZ Birthdate: 1995 [id number] The patient is not improving. Will encourage adherence with trials of lithium 300mg PO BID and paliperidone 3mg PO BID. Will increase lithium to 600mg PO BID. Will pursue State Hospitalization. Continued Medication Management: Different Medication Medications: Current Medications Acetaminophen (Tylenol Tab*) 650 mg PO Q4H PRN PRN Reason: for pain; or Temp >101 F Al Hydrox/Mg Hydrox/Simethicone (Maalox Plus*) 30 ml PO Q4H PRN PRN Reason: INDIGESTION [place] Carbonate ([place] Carbonate Tab*) 300 mg PO BID [facility] Last Admin: 03/11/19 10:26 Dose: 300 mg Lorazepam (Ativan Tab(*)) 1 mg PO Q6H PRN PRN Reason: ANXIETY Last Admin: 03/07/19 01:49 Dose: 1 mg Melatonin (Melatonin) 3 mg PO BEDTIME [facility] Last Admin: 03/10/19 19:52 Dose: 3 mg Multivitamins (Theragran Tab*) 1 tab PO DAILY [facility] Last Admin: 03/11/19 10:26 Dose: 1 tab Paliperidone (Invega Er Tab*) 3 mg PO BID [facility] Last Admin: 03/11/19 10:27 Dose: Not Given - Discharge Plan Discharge Plan: Consider Longer Term Tx
[2019-03-11] MEDS: Melatonin 3 MG TAB PO SCH (21:28)
[2019-03-12] MEDS: Lithium Carbonate TAB* 300 MG PO SCH ×2 (09:09→21:57)
[2019-03-12] MEDS: Vitamin THERAPEUTIC TAB PO SCH (09:09)
[2019-03-12] MEDS: Paliperidone ER TAB* 3 MG TAB.ER PO SCH ×2 (09:09→21:58)
[2019-03-12] MEDS: Melatonin 3 MG TAB PO SCH (21:58)
[2019-03-13] MEDS: Vitamin THERAPEUTIC TAB PO SCH (09:35)
[2019-03-13] MEDS: Lithium Carbonate TAB* 300 MG PO SCH (09:35)
[2019-03-13] MEDS: Paliperidone ER TAB* 3 MG TAB.ER PO SCH (09:36)
--- NOTE | 2019-03-13 14:39 | PN ---
Subjective - Subjective Date of Service: 03/13/19 Service Type: 90352 Hosp care 25 min moderate complexity Subjective: Ida was seen in an administrative hearing in preparation for referring him to the [facility] system. He remains diffuse, stating that his issues do not amount to "psychosis" but rather "emotional blockages from trauma." He admits that street drugs unblock those bottled up emotions in ways that overwhelm him but are more helpful than psychiatric medications. "Those just numb the trauma." He does not want to go to the State but would prefer to be discharged to a group home. He denies SI or HI. Our request for a transfer was accepted by the [facility] administrator. Objective - General Observations Appearance: Well Groomed Appears Stated Age: Yes Stature: Short Posture: WNL Eye Contact: Intermittent Behavior/Activity: Peculiar - Interaction Observations Attitude Towards Examiner: Defensive Stated Mood: Anxious Affect: Restricted Speech Pattern/Tone: Clear Thought Process: Tangential Perception: WNL Thought Content: Paranoid Thought Process: Lethality: Paranoid Ideation Hallucination Type: None Delusion Type: Persecution - Cognitive Function Orientation: A&O x 4 Level of Consciousness: Awake Cognition: WNL Estimated Intelligence: Normal Insight: Difficulty Acknowledging Presence of Psyciatric Problems Judgment Within Normal Limits: No Ability to Make Reasonable Decisions: Serverely Impaired - Medication Compliance Cooperative with Inpatient Medication Regimen: Partial - Group Participation Participates in Group Activities: Yes Assessment - Assessment Merits Inpatient Hospitalization: For Immediate Safety, For Stabilization Inpatient DSM-V Dx: F29 Clinical Impression: 23 y.o. single, immigrant from [facility] with a history of multiple psychiatric hospitalizations for psychosis, as well as abuse of cannabis, alcohol and LSD, brought in by police on due to disruptive, psychotic behavior in the community. BSU: Problem List - Patient Problems (1) Psychoses Current Visit: No Status: Acute Priority: High Plan - Plan Treatment Plan: Name: IDA RODRIGUEZ Birthdate: 1995 [id number] The patient is not improving and is refusing antipsychotic medication. We will d/c paliperidone. Will encourage adherence with trial of lithium 300mg PO BID. Will pursue State Hospitalization. Continued Medication Management: Different Medication Medications: Current Medications Acetaminophen (Tylenol Tab*) 650 mg PO Q4H PRN PRN Reason: for pain; or Temp >101 F Al Hydrox/Mg Hydrox/Simethicone (Maalox Plus*) 30 ml PO Q4H PRN PRN Reason: INDIGESTION [place] Carbonate ([place] Carbonate Tab*) 600 mg PO BID [facility] Last Admin: 03/13/19 09:35 Dose: 600 mg Lorazepam (Ativan Tab(*)) 1 mg PO Q6H PRN PRN Reason: ANXIETY Last Admin: 03/07/19 01:49 Dose: 1 mg Melatonin (Melatonin) 3 mg PO BEDTIME [facility] Last Admin: 03/12/19 21:58 Dose: 3 mg Multivitamins (Theragran Tab*) 1 tab PO DAILY [facility] Last Admin: 03/13/19 09:35 Dose: 1 tab Paliperidone (Invega Er Tab*) 3 mg PO BID [facility] Last Admin: 03/13/19 09:36 Dose: Not Given - Discharge Plan Discharge Plan: Consider Longer Term Tx
[2019-03-13] MEDS: Melatonin 3 MG TAB PO SCH (22:30)
[2019-03-14] MEDS: Lithium Carbonate TAB* 300 MG PO SCH ×3 (00:51→22:38)
[2019-03-14] MEDS: Vitamin THERAPEUTIC TAB PO SCH (10:19)
[2019-03-14] MEDS: Melatonin 3 MG TAB PO SCH (22:37)
[2019-03-15] MEDS: Lithium Carbonate TAB* 300 MG PO SCH ×2 (11:27→20:20)
[2019-03-15] MEDS: Vitamin THERAPEUTIC TAB PO SCH (11:27)
[2019-03-15] MEDS: Melatonin 3 MG TAB PO SCH (20:20)
[2019-03-16] MEDS ORDERED: OLANzapine TAB*ODT* 10 MG TAB PO ONE (04:26)
[2019-03-16] MEDS ORDERED: OLANzapine TAB*ODT* 10 MG TAB ONE ×2 (04:27→10:36)
[2019-03-16 09:30] VITALS: BP 105/89
[2019-03-16] MEDS ORDERED: LORazepam TAB(*) 1 MG PO PRN (09:30)
[2019-03-16] MEDS: Vitamin THERAPEUTIC TAB PO SCH (10:12)
[2019-03-16] MEDS: Lithium Carbonate TAB* 300 MG PO SCH (10:12)
[2019-03-16] MEDS ORDERED: OLANzapine TAB* 10 MG PO ONE (10:30)
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
== END 2019-03-16 16:30 | DRG 885 ==
LOC: ED 10:22 → BSU 12:45
PROVIDERS: ADMIT Psychiatry & Neurology Psychiatry; ATTEND Psychiatry & Neurology Psychiatry
PROC: GZHZZZZ Group Psychotherapy (ICD-10-PCS; principal; 2019-03-06)
DX: F31.2 Bipolar disorder, current episode manic severe with psychotic features (principal); F20.9 Schizophrenia, unspecified; F12.259 Cannabis dependence with psychotic disorder, unspecified; D57.3 Sickle-cell trait; F19.90 Other psychoactive substance use, unspecified, uncomplicated; J45.909 Unspecified asthma, uncomplicated; G43.909 Migraine, unspecified, not intractable, without status migrainosus; F43.10 Post-traumatic stress disorder, unspecified; F17.210 Nicotine dependence, cigarettes, uncomplicated; Z72.89 Other problems related to lifestyle; Z91.013 Allergy to seafood
CPT/HCPCS: 36415; 80053; 80061; 80178; 80307; 80320; 81003; 83036; 84443; 85025; 90853; 93005; 99222; 99231; 99232; 99238; 99283; A9270-GY; G0480

== ENCOUNTER 2020-03-04 20:00 | Inpatient (IN) ==
[2020-03-04 20:59] LABS: ABS Basophils 0.1 10^3/ul (0-0.2); ABS Eosinophils 0.5 10^3/ul (0-0.6); ABS Lymphocytes 2.6 10^3/ul (1.0-4.8); ABS Monocytes 0.5 10^3/ul (0-0.8); ABS Neutrophils 2.7 10^3/ul (1.5-7.7); Eosinophil % 7.3 %; Hematocrit 41 % (42-52); Hemoglobin 14.2 g/dL (14.0-18.0); Lymphocyte % 40.1 %; Mean Corpuscular HGB Conc 34 g/dL (31-36); Mean Corpuscular Hemoglobin 28 pg (27-31); Mean Corpuscular Volume 80 fL (80-94); Mean Platelet Volume 8.8 fL (7.4-10.4); Nucleated Red Blood Cells % 0.1; Platelet Count 309 10^3/uL (150-450); Red Blood Count 5.17 10^6 /uL (4.18-5.48); Red Cell Distribution Width 14 % (10-15); White Blood Count 6.4 10^3/uL (3.5-10.8)
[2020-03-04 21:07] LABS: Urine Appearance Clear; Urine Bilirubin Negative (Negative); Urine Blood Negative (Negative); Urine Color Amber; Urine Glucose Negative (Negative); Urine Ketones Negative (Negative); Urine Nitrite Negative (Negative); Urine Protein Negative (Negative); Urine Urobilinogen Negative (Negative)
[2020-03-04 21:15] LABS: ALT 25 U/L (7-52); AST 16 U/L (13-39); Albumin 4.4 g/dL (3.2-5.2); Albumin/Globulin Ratio 2.2 (1-3); Alkaline Phosphatase 49 U/L (34-104); Anion Gap 4 mmol/L (2-11); BUN/Creatinine Ratio 13.5 (8-20); Blood Urea Nitrogen 14 mg/dL (6-24); CO2 Carbon Dioxide 29 mmol/L (22-32); Calcium 9.5 mg/dL (8.6-10.3); Chloride 104 mmol/L (101-111); EGFR African American 108.1 (>60); EGFR Non-African American 89.3 (>60); Glucose 97 mg/dL (70-100); Potassium 3.7 mmol/L (3.5-5.0); Sodium 137 mmol/L (135-145); Total Protein 6.4 g/dL (6.4-8.9)
[2020-03-04 21:21] LABS: Acetaminophen < 15 mcg/mL; Alcohol, S < 10 mg/dL (<10); Salicylate < 2.50 mg/dL (<30)
[2020-03-04 21:24] LABS: Urine Benzodiazepine Screen None Detected (None Detect); Urine Cannabinoids Screen Presumptive Positive (None Detect); Urine Opiates Screen None Detected (None Detect)
[2020-03-04 21:36] LABS: TSH Ultra Thyroid Stim Horm 0.35 mcIU/mL (0.34-5.60)
[2020-03-05] MEDS ORDERED: Al Hydrox/Mg Hydrox/Simet LIQ 30 ML UDC PO PRN (04:04)
[2020-03-05 07:21] LABS: Valproic Acid < 13.0 mcg/mL (50-100)
[2020-03-05] MEDS: Vitamin THERAPEUTIC TAB PO SCH (10:01)
[2020-03-06 08:32] LABS: HDL Cholesterol 41.9 mg/dL
[2020-03-06] MEDS: Vitamin THERAPEUTIC TAB PO SCH (11:32)
[2020-03-07] MEDS: Vitamin THERAPEUTIC TAB PO SCH (09:33)
[2020-03-08] MEDS: Vitamin THERAPEUTIC TAB PO SCH (08:18)
[2020-03-09] MEDS: Vitamin THERAPEUTIC TAB PO SCH (08:10)
[2020-03-10 09:23] VITALS: BP 117/53
[2020-03-10] MEDS: Vitamin THERAPEUTIC TAB PO SCH (09:27)
== END 2020-03-10 11:30 | disposition home or self-care (01) | DRG 897 ==
LOC: ED 20:00 → BSU 03-05 02:02
PROVIDERS: ADMIT Psychiatry & Neurology Psychiatry; ATTEND Psychiatry & Neurology Psychiatry

== ENCOUNTER 2020-07-18 07:13 | Inpatient (IN) ==
[2020-07-18 08:04] LABS: Urine Appearance Clear; Urine Bilirubin Negative (Negative); Urine Blood Negative (Negative); Urine Color Yellow; Urine Glucose Negative (Negative); Urine Ketones Negative (Negative); Urine Nitrite Negative (Negative); Urine Protein Negative (Negative); Urine Specific Gravity 1.012 (1.010-1.030); Urine Urobilinogen Negative (Negative)
[2020-07-18 08:18] LABS: ABS Basophils 0.1 10^3/ul (0-0.2); ABS Eosinophils 0.4 10^3/ul (0-0.6); ABS Lymphocytes 2.3 10^3/ul (1.0-4.8); ABS Monocytes 0.6 10^3/ul (0-0.8); Eosinophil % 6.3 %; Hematocrit 39 % (42-52); Hemoglobin 13.1 g/dL (14.0-18.0); Lymphocyte % 35.6 %; Mean Corpuscular HGB Conc 34 g/dL (31-36); Mean Corpuscular Hemoglobin 27 pg (27-31); Mean Corpuscular Volume 81 fL (80-94); Mean Platelet Volume 8.6 fL (7.4-10.4); Nucleated Red Blood Cells % 0.1; Platelet Count 245 10^3/uL (150-450); Red Blood Count 4.79 10^6 /uL (4.18-5.48); Red Cell Distribution Width 14 % (10-15); White Blood Count 6.4 10^3/uL (3.5-10.8)
[2020-07-18 08:22] LABS: ALT 18 U/L (7-52); AST 19 U/L (13-39); Albumin/Globulin Ratio 1.7 (1-3); Alkaline Phosphatase 65 U/L (34-104); Anion Gap 5 mmol/L (2-11); BUN/Creatinine Ratio 17.2 (8-20); Blood Urea Nitrogen 15 mg/dL (6-24); CO2 Carbon Dioxide 27 mmol/L (22-32); Calcium 9.5 mg/dL (8.6-10.3); Chloride 105 mmol/L (101-111); EGFR African American 131.6 (>60); EGFR Non-African American 108.7 (>60); Globulin 2.4 g/dL (2-4); Glucose 92 mg/dL (70-100); Potassium 3.8 mmol/L (3.5-5.0); Sodium 137 mmol/L (135-145); Total Protein 6.4 g/dL (6.4-8.9)
[2020-07-18 08:33] LABS: Urine Benzodiazepine Screen None Detected (None Detect); Urine Cannabinoids Screen Presumptive Positive (None Detect); Urine Opiates Screen None Detected (None Detect)
[2020-07-18 08:41] LABS: Acetaminophen < 15 mcg/mL; Alcohol, S < 10 mg/dL (<10); Salicylate < 2.50 mg/dL (<30)
[2020-07-18 08:54] LABS: TSH Ultra Thyroid Stim Horm 1.13 mcIU/mL (0.34-5.60)
[2020-07-18] MEDS ORDERED: Al Hydrox/Mg Hydrox/Simet LIQ 30 ML UDC PO PRN (10:21)
[2020-07-18 11:30] LABS: Valproic Acid < 13.0 mcg/mL (50-100)
[2020-07-19] MEDS: Vitamin THERAPEUTIC TAB PO SCH (08:59)
[2020-07-20 08:14] LABS: HDL Cholesterol 53.4 mg/dL
[2020-07-20] MEDS: Vitamin THERAPEUTIC TAB PO SCH (09:36)
[2020-07-21] MEDS: Vitamin THERAPEUTIC TAB PO SCH (08:31)
[2020-07-22] MEDS: Vitamin THERAPEUTIC TAB PO SCH (08:53)
[2020-07-22] MEDS: Nicotine GUM 2MG FRUIT FLAVOR PO PRN (11:07)
[2020-07-23] MEDS: Vitamin THERAPEUTIC TAB PO SCH (08:48)
[2020-07-23] MEDS: Nicotine GUM 2MG FRUIT FLAVOR PO PRN (18:52)
[2020-07-24] MEDS: Nicotine GUM 2MG FRUIT FLAVOR PO PRN ×2 (07:48→11:30)
[2020-07-24] MEDS: Vitamin THERAPEUTIC TAB PO SCH (07:48)
[2020-07-25] MEDS: Vitamin THERAPEUTIC TAB PO SCH (10:50)
[2020-07-26] MEDS: Vitamin THERAPEUTIC TAB PO SCH (10:14)
[2020-07-27] MEDS: Vitamin THERAPEUTIC TAB PO SCH (08:08)
[2020-07-27] MEDS: Nicotine GUM 2MG FRUIT FLAVOR PO PRN ×5 (08:09→19:40)
[2020-07-27] MEDS: Lithium Carbonate ER 450mg TAB PO SCH ×2 (10:58→20:19)
[2020-07-27] MEDS: Cholecalciferol (VIT D3) 1,000 unit TAB PO SCH (10:58)
[2020-07-28] MEDS: Vitamin THERAPEUTIC TAB PO SCH (08:01)
[2020-07-28] MEDS: Cholecalciferol (VIT D3) 1,000 unit TAB PO SCH (08:01)
[2020-07-28] MEDS: Lithium Carbonate ER 450mg TAB PO SCH ×2 (08:01→21:00)
[2020-07-28] MEDS: Nicotine GUM 2MG FRUIT FLAVOR PO PRN (10:35)
[2020-07-29] MEDS: Lithium Carbonate ER 450mg TAB PO SCH ×2 (07:54→20:16)
[2020-07-29] MEDS: Cholecalciferol (VIT D3) 1,000 unit TAB PO SCH (07:54)
[2020-07-29] MEDS: Vitamin THERAPEUTIC TAB PO SCH (07:54)
[2020-07-29] MEDS: Nicotine GUM 2MG FRUIT FLAVOR PO PRN (12:11)
[2020-07-30] MEDS: Lithium Carbonate ER 450mg TAB PO SCH ×2 (08:29→20:41)
[2020-07-30] MEDS: Cholecalciferol (VIT D3) 1,000 unit TAB PO SCH (08:29)
[2020-07-30] MEDS: Vitamin THERAPEUTIC TAB PO SCH (08:31)
[2020-07-30] MEDS: Nicotine GUM 2MG FRUIT FLAVOR PO PRN ×2 (14:26→19:07)
[2020-07-31] MEDS: Cholecalciferol (VIT D3) 1,000 unit TAB PO SCH (08:19)
[2020-07-31] MEDS: Vitamin THERAPEUTIC TAB PO SCH (08:20)
[2020-07-31] MEDS: Lithium Carbonate ER 450mg TAB PO SCH ×2 (08:20→19:27)
[2020-07-31] MEDS: Nicotine GUM 2MG FRUIT FLAVOR PO PRN ×2 (09:31→14:51)
[2020-08-01] MEDS: Cholecalciferol (VIT D3) 1,000 unit TAB PO SCH (08:20)
[2020-08-01] MEDS: Lithium Carbonate ER 450mg TAB PO SCH ×2 (08:20→20:08)
[2020-08-01] MEDS: Vitamin THERAPEUTIC TAB PO SCH (08:20)
[2020-08-01] MEDS: Nicotine GUM 2MG FRUIT FLAVOR PO PRN ×2 (12:22→20:06)
[2020-08-02] MEDS: Vitamin THERAPEUTIC TAB PO SCH (08:41)
[2020-08-02] MEDS: Cholecalciferol (VIT D3) 1,000 unit TAB PO SCH (08:41)
[2020-08-02] MEDS: Nicotine GUM 2MG FRUIT FLAVOR PO PRN ×3 (08:42→20:26)
[2020-08-02] MEDS: Lithium Carbonate ER 450mg TAB PO SCH ×2 (08:44→20:24)
[2020-08-03] MEDS: Cholecalciferol (VIT D3) 1,000 unit TAB PO SCH (08:07)
[2020-08-03] MEDS: Vitamin THERAPEUTIC TAB PO SCH (08:07)
[2020-08-03] MEDS: Lithium Carbonate ER 450mg TAB PO SCH ×2 (08:08→22:01)
[2020-08-03] MEDS: Nicotine GUM 2MG FRUIT FLAVOR PO PRN (13:34)
[2020-08-04] MEDS: Vitamin THERAPEUTIC TAB PO SCH (08:17)
[2020-08-04] MEDS: Lithium Carbonate ER 450mg TAB PO SCH ×2 (08:17→20:32)
[2020-08-04] MEDS: Cholecalciferol (VIT D3) 1,000 unit TAB PO SCH (08:17)
[2020-08-04] MEDS: Nicotine GUM 2MG FRUIT FLAVOR PO PRN ×2 (11:09→18:26)
[2020-08-05] MEDS: Lithium Carbonate ER 450mg TAB PO SCH (08:05)
[2020-08-05] MEDS: Vitamin THERAPEUTIC TAB PO SCH (08:05)
[2020-08-05] MEDS: Cholecalciferol (VIT D3) 1,000 unit TAB PO SCH (08:05)
[2020-08-05 09:23] VITALS: BP 121/78
== END 2020-08-05 09:00 | DRG 885 ==
LOC: ED 07:13 → BSU 11:54
PROVIDERS: ADMIT Psychiatry & Neurology Psychiatry; ATTEND Psychiatry & Neurology Psychiatry

== ENCOUNTER 2020-11-05 21:53 | Inpatient (IN) ==
[2020-11-05 23:00] LABS: ABS Basophils 0.1 10^3/ul (0-0.2); ABS Eosinophils 0.4 10^3/ul (0-0.6); ABS Lymphocytes 1.8 10^3/ul (1.0-4.8); ABS Monocytes 1.5 10^3/ul (0-0.8); ABS Neutrophils 6.2 10^3/ul (1.5-7.7); Eosinophil % 3.9 %; Hematocrit 38 % (42-52); Lymphocyte % 17.8 %; Mean Corpuscular HGB Conc 35 g/dL (31-36); Mean Corpuscular Hemoglobin 29 pg (27-31); Mean Corpuscular Volume 82 fL (80-94); Mean Platelet Volume 8.5 fL (7.4-10.4); Platelet Count 299 10^3/uL (150-450); Red Blood Count 4.58 10^6 /uL (4.18-5.48); Red Cell Distribution Width 15 % (10-15); White Blood Count 9.9 10^3/uL (3.5-10.8)
[2020-11-05 23:14] LABS: Urine Appearance Cloudy; Urine Bilirubin Negative (Negative); Urine Blood Negative (Negative); Urine Color Amber; Urine Glucose Negative (Negative); Urine Ketones 1+ (Negative); Urine Nitrite Negative (Negative); Urine Protein 2+(100 mg/dL) (Negative); Urine Specific Gravity 1.036 (1.002-1.030); Urine Urobilinogen Positive (Negative)
[2020-11-05 23:14] LABS: ALT 48 U/L (7-52); AST 36 U/L (13-39); Albumin 4.3 g/dL (3.2-5.2); Albumin/Globulin Ratio 1.6 (1-3); Alkaline Phosphatase 52 U/L (34-104); Anion Gap 8 mmol/L (2-11); Blood Urea Nitrogen 19 mg/dL (6-24); CO2 Carbon Dioxide 26 mmol/L (22-32); Calcium 9.6 mg/dL (8.6-10.3); Chloride 104 mmol/L (101-111); EGFR African American 89.9 (>60); EGFR Non-African American 74.3 (>60); Globulin 2.7 g/dL (2-4); Glucose 111 mg/dL (70-100); Potassium 3.4 mmol/L (3.5-5.0); Sodium 138 mmol/L (135-145)
[2020-11-05 23:26] LABS: Urine Bacteria Absent (Absent); Urine Red Blood Cell 3+(>10/hpf) (Absent); Urine White Blood Cell Trace(0-5/hpf) (Absent)
[2020-11-05 23:38] LABS: Urine Benzodiazepine Screen None Detected (None Detect); Urine Cannabinoids Screen Presumptive Positive (None Detect); Urine Opiates Screen None Detected (None Detect)
[2020-11-05 23:39] LABS: Acetaminophen < 15 mcg/mL; Alcohol, S < 10 mg/dL (<10); Salicylate < 2.50 mg/dL (<30)
[2020-11-05 23:54] LABS: TSH Ultra Thyroid Stim Horm 1.65 mcIU/mL (0.34-5.60)
[2020-11-06] MEDS ORDERED: Ziprasidone IM 20 mg VIAL 1 ml VIAL IM ONE (03:02)
[2020-11-06] MEDS ORDERED: Lorazepam PYXIS KEY PRN (03:02)
[2020-11-06] MEDS ORDERED: LORazepam 2 mg VIAL 1 ml IM ONE (03:02)
[2020-11-06] MEDS ORDERED: Sterile Water for Inj 10 ML ONE (03:05)
[2020-11-09 08:15] LABS: HDL Cholesterol 47.7 mg/dL
[2020-11-11] MEDS: Nicotine GUM 4MG FRUIT FLAVOR PO PRN (16:35)
[2020-11-12] MEDS: Nicotine GUM 4MG FRUIT FLAVOR PO PRN (14:31)
[2020-11-13] MEDS: Nicotine GUM 4MG FRUIT FLAVOR PO PRN (09:14)
[2020-11-14] MEDS: Nicotine GUM 4MG FRUIT FLAVOR PO PRN (16:12)
[2020-11-15] MEDS: Nicotine GUM 4MG FRUIT FLAVOR PO PRN (21:33)
[2020-11-17] MEDS: Nicotine GUM 4MG FRUIT FLAVOR PO PRN (15:06)
[2020-11-22] MEDS ORDERED: COVID-19 VACCINE, MRNA(MODERNA)/PF 100 MCG/0.5 ML IM ONE (14:00)
[2020-11-25 07:49] VITALS: BP 109/58
== END 2020-11-25 09:30 | DRG 885 ==
LOC: ED 21:53 → BSU 11-06 16:16
PROVIDERS: ADMIT Psychiatry & Neurology Psychiatry; ATTEND Psychiatry & Neurology Psychiatry